=== PATIENT | female | born 1945 | race Caucasian/White ===

== ENCOUNTER → 2016-11-05 | Outpatient (CLI) | payer OTHER ==
[~2016-11-05] MED LIST: DTRSR/10 PO; GLC/500 PO; GLC500 PO; METH1TAB3 PO; OXYC-57 PO
--- NOTE | 2016-11-05 08:31 | DIAGNOSTIC IMAGING REPORT ---
HEAD CT NONCONTRAST CT DOSE: 537.48 mGy.cm HISTORY: Change in mental status facial numbness TECHNIQUE: Multiaxial CT images of the head were performed without the use of intravenous contrast. Comparison: None. Findings: The paranasal sinuses and mastoid air cells are clear. The calvarium and skull base are intact. The ventricles and sulci are within normal limits. There is no mass, hematoma, midline shift, or acute infarct. Impression: No acute intracranial abnormality. Electronically signed by: Amado John M.D. 11/05/2016 8:30 AM Dictated Date/Time: 11/05/2016 8:29 AM
== END | disposition home or self-care (01) ==
LOC: C.CTS 08:16
PROVIDERS: ATTEND Internal Medicine
DX: H02.402 Unspecified ptosis of left eyelid (principal)

== ENCOUNTER 2016-12-02 01:55 | Emergency (ER) | payer OTHER ==
[~2016-12-02] VITALS: Ht 147.3 cm; Wt 88.6 kg
[~2016-12-02 01:55] MED LIST changes: -DTRSR/10 PO; -GLC500 PO; -METH1TAB3 PO; -OXYC-57 PO
[2016-12-02 02:00] VITALS: TEMP 36.5; Ht 147.3 cm; Wt 88.6 kg
[2016-12-02] MEDS ORDERED: KETOROLAC TROMETHAMINE 30 MG/ML VIAL ONE (02:29)
[2016-12-02] MEDS ORDERED: KETOROLAC TROMETHAMINE 60 MG/2 ML VIAL IM ONE (02:30)
[2016-12-02 02:58] VITALS: BP 206/112; PULSE 87; O2SAT 94
[2016-12-02] MEDS ORDERED: OXYCODONE IR HOME PACK PO ONE (03:00)
--- NOTE | 2016-12-02 05:07 | EMERGENCY ROOM VISIT NOTE ---
History Report prepared by Margaret: Perry Licea Under the Supervision of: Dr. Cosme Sullivan D.O. First contact with patient: 02:06 Chief Complaint: SHOULDER PAIN Stated Complaint: SEVERE PAIN LEFT SHOULDER History of Present Illness The patient is a 71 year old female who presents to the Emergency Room with complaints of constant severe left shoulder pain starting around 2030. The patient states that movement makes it worse, and she has never had anything like this before. The patient states that she has not taken any pain medications because her tolerance is too high they do not help her. The patient states that she usually has some back pain, though nothing like this. Pain is significantly worse with abduction of her shoulder. No tingling or numbness. No weakness. Pt denies headache, change in vision, fevers, chest pain, shortness of breath, nausea, vomiting, diarrhea, pain with urination, and melena. Source of History: patient Onset: 2029 Position: shoulder (left) Symptom Intensity: severe Timing: constant Modifying Factors (Worsening): movement Review of Systems See HPI for pertinent positives & negatives. A total of 10 systems reviewed and were otherwise negative. Past Medical & Surgical Medical Problems: (1) Asthma, Unspecified (2) Cholecystectomy (3) Chronic Liver Dis Nec (4) Chronic obstructive lung disease (5) Chronic osteoarthritis (6) Diverticulosis Colon (W/O Ment Of Hemorrhage) (7) History of bilateral mastectomy (8) Hypertension Nos (9) Osteoporosis (10) Pneumonia, Organism Nos (11) Replacement of total knee joint Family History Cancer Diabetes mellitus Hypertension Lung disease Social History Smoking Status: Former Smoker Alcohol Use: none Drug Use: none Marital Status: single Housing Status: lives alone Occupation Status: employed Current/Historical Medications Scheduled Metformin Hcl (Glucophage), 1,000 TABS PO BID Methenamine Mandelate (Methenamine Mandelate), 1 GM PO HS Oxybutynin Chloride (Oxybutynin Chloride ER), 10 MG PO DAILY @ NOON Allergies Coded Allergies: Amoxicillin (Verified Allergy, Unknown, childhood allergy, 12/02/16) Penicillins (Verified Allergy, Unknown, HAPPENED A CHILD, 04/20/16) Physical Exam Vital Signs Date Time Temp Pulse Resp B/P Pulse Ox O2 Delivery O2 Flow Rate FiO2 12/02/16 02:58 87 20 206/112 94 12/02/16 02:16 87 12/02/16 02:00 36.5 91 20 206/112 94 Room Air Physical Exam GENERAL: Sitting up in bed, disheveled, no distress, non-toxic EYE EXAM: normal conjunctiva, PERRL and EOM's grossly intact OROPHARYNX: no exudate, no erythema, lips, buccal mucosa, and tongue normal and mucous membranes are moist NECK: Pain with rotation of the neck to the left. Supple, no nuchal rigidity, no adenopathy, non-tender LUNGS: Clear to auscultation. Normal chest wall mechanics HEART: no murmurs, S1 normal and S2 normal ABDOMEN: abdomen soft, non-tender, normo-active bowel sounds, no masses, no rebound or guarding. BACK: Back is symmetrical on inspection and there is no deformity, no midline tenderness, no CVA tenderness. SKIN: no rashes and no bruising UPPER EXTREMITIES: Left upper extremity: acute reproducible tenderness over the humeral head tracking over the scapula and trapezius. Flexion, extension of the wrist, elbow, and shoulder intact along with abduction of shoulder. Moderate amount of pain with abduction more than 90 degrees. Grasp with abduction intact. Radial pulses 2/4 bilaterally LOWER EXTREMITIES: No pitting edema. NEURO EXAM: Normal sensorium Medical Decision & Procedures ER Provider Diagnostic Interpretation: Xray results per my interpretation. 4 Views of the left shoulder: No acute fracture or dislocation. Medications Administered Medications (Trade) Dose Ordered Sig/Nolan Route Start Time Stop Time Status Last Admin Dose Admin Ketorolac Tromethamine (Toradol Inj) 30 mg STK-MED ONCE .ROUTE 12/02/16 02:29 12/02/16 02:32 DC 12/02/16 02:37 15 MG Oxycodone HCl (Roxicodone Immediate Rel 5MG Home Pack) 1 homepack UD ONCE PO 12/02/16 03:00 12/02/16 03:01 DC 12/02/16 02:58 1 HOMEPACK ECG Indication: other (shoulder pain) Rate (beats per minute): 85 Rhythm: sinus rhythm Findings: Q waves (Inferior), other (normal axis) ED Course ED COURSE: Vital signs were reviewed and showed hypertensive The patients medical record was reviewed The above diagnostic studies were performed and reviewed. ED treatments and interventions as stated above. 0210: The patient was evaluated in room B2. A complete history and physical examination was performed. 0229: Toradol Inj 15mg IM 0242: I revaluated the patient, and she states that she cannot get anyone to pick her up, and she wnats to go home. 0300: Oxycodone HCl 1 Homepack 0301: Upon reevaluation, the patient is feeling better.I discussed my findings with the patient and she understands and agrees with the treatment plan. Based on the patients age, coexisting illnesses, exam and lab findings the decision to treat as an outpatient was made. The patient remained stable while under my care. The patient appeared well at the time of discharge. Medical Decision Differential diagnosis: Etiologies such as fracture, dislocation, neurovascular compromise, compartment syndrome, soft tissue injury, as well as others were entertained. Patient is a 71-year-old female who presents the ER for severe left shoulder pain. She notes that this started yesterday and has been worsening. She's never had this before. She is acute reproducible tenderness in the trapezius, humeral head and paraspinal region along the scapula. Pain is completely reproducible. She is neurologically and neurovascularly intact. She was hypertensive. She was updated regards to this. She is instructed to follow-up with her primary care doctor in next 2-3 days regards to this. Patient was given IM Toradol. Since she drove was unable to give her any narcotics but I gave her OxyIR to go home on. PDMP was reviewed. I recommended following up with her primary care doctor if pain continues over the next 24 hours. Discussed with Pt concerning signs and symptoms to watch out for. Pt was instructed to follow up with their PCP and discussed with the patient their option to return to the ED at anytime for persistent or worsening symptoms. The appropriate anticipatory guidance and out-patient management, including indications for return to the emergency department, were explained at length to the patient and understood. Impression Primary Impression: Acute pain of left shoulder Additional Impression: Hypertension Scribe Attestation The scribe's documentation has been prepared under my direction and personally reviewed by me in its entirety. I confirm that the note above accurately reflects all work, treatment, procedures, and medical decision making performed by me. Departure Information Dispostion Home / Self-Care Referrals Yuri Fregoso MD (PCP) Forms HOME CARE DOCUMENTATION FORM, IMPORTANT VISIT INFORMATION Patient Instructions ED Shoulder Pain IVIS, [facility] Additional Instructions Please follow up with your primary care doctor with in the next 24 hours. Any worsening of your symptoms, please return to the ED immediately. This includes worsening the pain, fevers greater than 100.4, redness of the shoulder, or any other concerning signs or symptoms from your standpoint. You were given medications during this visit that will inhibit your ability to drive, operate machinery and work. Please do NOT drive, operate machinery or work for the next 12hrs. You were also given a prescription for a narcotic which is OxyIR. While taking this medication you should also not drive, operate machinery and or work. Please follow up with your primary care doctor within next 2-3 days in regards to your high blood pressure. Problem Qualifiers Additional Impression: Hypertension Hypertension type: unspecified secondary hypertension Qualified Codes: I15.9 - Secondary hypertension, unspecified
--- NOTE | 2016-12-02 07:24 | DIAGNOSTIC IMAGING REPORT ---
LEFT SHOULDER 4 VIEWS CLINICAL HISTORY: Left shoulder pain. No reported history of trauma. FINDINGS: 4 views of left shoulder are compared to study dated 06/03/2010. The skeletal structures are osteopenic. No fracture or dislocation is seen. Productive degenerative change is identified at the acromioclavicular joint. Arthritic change is also seen in the greater tuberosity of the humeral head. The overlying soft tissues are within normal limits. Partially imaged left lung parenchyma appears clear. The heart is enlarged. IMPRESSION: Osteopenia and degenerative change as above. No acute bony abnormality is identified. Electronically signed by: Ponce Scott M.D. 12/02/2016 7:23 AM Dictated Date/Time: 12/02/2016 7:21 AM
[2016-12-24] MEDS ORDERED: METH1TAB3 PO (10:49)
[2016-12-24] MEDS ORDERED: DTRSR/10 PO (11:43)
== END 2016-12-02 03:00 | disposition home or self-care (01) ==
LOC: C.EDB 01:57
DX: M25.512 Pain in left shoulder (principal); I15.9 Secondary hypertension, unspecified; J45.909 Unspecified asthma, uncomplicated; J44.9 Chronic obstructive pulmonary disease, unspecified; M19.90 Unspecified osteoarthritis, unspecified site; Z90.13 Acquired absence of bilateral breasts and nipples; M81.0 Age-related osteoporosis without current pathological fracture; Z96.659 Presence of unspecified artificial knee joint; Z83.3 Family history of diabetes mellitus; Z82.49 Family history of ischemic heart disease and other diseases of the circulatory system; Z87.891 Personal history of nicotine dependence

== ENCOUNTER 2016-12-03 10:37 | Emergency (ER) | payer OTHER ==
[~2016-12-03] VITALS: Ht 147.3 cm; Wt 87.9 kg
[2016-12-03 10:41] VITALS: TEMP 36.5; Ht 147.3 cm; Wt 87.9 kg
[2016-12-03] MEDS ORDERED: KETOROLAC TROMETHAMINE 30 MG/ML VIAL IM STA (11:31)
--- NOTE | 2016-12-03 11:41 | EMERGENCY ROOM VISIT NOTE ---
History First contact with patient: 11:04 Chief Complaint: SHOULDER PAIN Stated Complaint: SHOULDER PAIN History of Present Illness The patient is a 71 year old female who presents to the Emergency Room with complaints of persistent left shoulder pain for the past few days. The patient was seen yesterday with similar complaints. She was given IM Toradol, and had distinct improvement of her symptoms after this medication. The patient states that she has an upcoming appointment with [facility] in 4 days. She essentially repaired and stool the emergency department for another shot of Toradol. 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 She does have pain with range of motion and improvement of discomfort with rest. The patient is not able to use a sling for the arm because she needs to use a walker to ambulate. She does not recall distinct injury. No chest pain or shortness of breath. Review of Systems More than 10 systems were reviewed and otherwise negative with the exception of history of present illness. Past Medical/Surgical History Medical Problems: (1) Asthma, Unspecified (2) Cholecystectomy (3) Chronic Liver Dis Nec (4) Chronic obstructive lung disease (5) Chronic osteoarthritis (6) Diverticulosis Colon (W/O Ment Of Hemorrhage) (7) History of bilateral mastectomy (8) Hypertension Nos (9) Osteoporosis (10) Pneumonia, Organism Nos (11) Replacement of total knee joint Family History Cancer Diabetes mellitus Hypertension Lung disease Social History Smoking Status: Never Smoker Alcohol Use: none Drug Use: none Marital Status: single Housing Status: lives alone Occupation Status: employed Current/Historical Medications Scheduled Metformin Hcl (Glucophage), 1,000 TABS PO BID Methenamine Mandelate (Methenamine Mandelate), 1 GM PO HS Oxybutynin Chloride (Oxybutynin Chloride ER), 10 MG PO DAILY @ NOON Allergies Coded Allergies: Amoxicillin (Verified Allergy, Unknown, childhood allergy, 12/03/16) Penicillins (Verified Allergy, Unknown, HAPPENED A CHILD, 12/03/16) Physical Exam Vital Signs Date Time Temp Pulse Resp B/P Pulse Ox O2 Delivery O2 Flow Rate FiO2 12/03/16 10:41 36.5 96 18 169/100 95 Room Air Physical Exam VITALS: Vitals are noted on the nurse's note and reviewed by myself. Vital signs stable. GENERAL: Well-developed, well-nourished, white female, who is in no acute distress and resting comfortably. Patient is cooperative with the examination. HEAD: Normocephalic atraumatic. HEART: Regular rate and rhythm without murmurs gallops or rubs. LUNGS: Clear to auscultation bilaterally without wheezes, rales or rhonchi. No retractions or accessory muscle use. MUSCULOSKELETAL: No muscle atrophy, erythema, or edema noted. There is positive tenderness over the supraspinatus of the left shoulder. There is no rash or paresthesias. Abduction and elevation above the level of the shoulder increases tenderness in this area. Positive empty can. Medical Decision & Procedures ED Course Physical exam and history were performed. Nursing notes and EMR were reviewed. Patient appears to have muscular skeletal left shoulder pain for the past few days. I did check an EKG which was normal sinus rhythm without acute ST elevation or evidence of ischemia. EKG was unchanged from yesterday. The patient does have an upcoming appointment with orthopedics and was asked to keep this appointment. I will provide her 15 mg IM Toradol as this seemed to help yesterday. The patient was otherwise invited back to the ER with any new, worsening, or concerning symptoms. A The chart was completed utilizing [employer] Speech Voice Recognition Software. Grammatical errors, random word insertions, pronoun errors, and incomplete sentences are an occasional consequence of this system due to software limitations, ambient noise, and hardware issues. Any formal questions or concerns about the content, text, or information contained within the body of this dictation should be directly addressed to the provider for clarification. . Medical Decision Differential diagnosis includes, but is not limited to: Sprain, strain, fracture , dislocation, subluxation, contusion, and others Impression Primary Impression: Left shoulder pain Departure Information Dispostion Home / Self-Care Condition GOOD Forms HOME CARE DOCUMENTATION FORM, IMPORTANT VISIT INFORMATION Patient Instructions My [facility] Additional Instructions You were seen and evaluated today on an emergency basis only. This is not a substitute for, or an effort to provide, complete comprehensive medical care. It is not possible to recognize and treat all injuries or illnesses in a single emergency department visit. For this reason it is recommended that you followup with Orthopedics as scheduled on Wednesday for ongoing care. You are welcome to return to the emergency department anytime with new, worsening, or concerning symptoms.
[2016-12-03 11:45] VITALS: BP 165/90; PULSE 97; O2SAT 97
[2016-12-03] MEDS ORDERED: KETOROLAC TROMETHAMINE 15 MG/ML VIAL IM ONE (11:45)
[2016-12-24] MEDS ORDERED: METH1TAB3 PO (10:49)
[2016-12-24] MEDS ORDERED: DTRSR/10 PO (11:43)
== END 2016-12-03 12:06 | disposition home or self-care (01) ==
LOC: C.EDB 10:38 → C.EDD 12:06
DX: M25.512 Pain in left shoulder (principal); J45.909 Unspecified asthma, uncomplicated; I10 Essential (primary) hypertension; J44.9 Chronic obstructive pulmonary disease, unspecified; Z79.899 Other long term (current) drug therapy; Z83.3 Family history of diabetes mellitus; Z82.49 Family history of ischemic heart disease and other diseases of the circulatory system

== ENCOUNTER 2016-12-24 20:12 | Emergency (ER) | payer OTHER ==
[~2016-12-24] VITALS: Ht 147.3 cm; Wt 88.2 kg
[~2016-12-24 20:12] MED LIST changes: +DTRSR/10 PO; +METH1TAB3 PO
[2016-12-24 20:14] VITALS: TEMP 36.5; Ht 147.3 cm; Wt 88.2 kg
[2016-12-24] MEDS ORDERED: GLC500 PO (20:58)
[2016-12-24] MEDS ORDERED: KETOROLAC TROMETHAMINE 60 MG/2 ML VIAL IM STA (20:59)
[2016-12-24] MEDS ORDERED: MoRPHine SULFATE 10 MG/ML CARP/VIAL IM STA (20:59)
--- NOTE | 2016-12-24 21:06 | EMERGENCY ROOM VISIT NOTE ---
History Report prepared by Margaret: Adolfo John Under the Supervision of: Dr. Eduardo Ervin M.D. First contact with patient: 20:34 Chief Complaint: BACK PAIN Stated Complaint: BACK PAIN History of Present Illness The patient is a 71 year old female who presents to the Emergency Room with complaints of chronic left lower back pain exacerbation since 1500 today. The pain is rated 10/10 in severity and is worsened with movement. The pain is the same pain that the patient experiences chronically. She follows up with pain management. The patient was prescribed Percocet until one year ago. She denies any recent trauma or injury. Source of History: patient Onset: 1500 today Position: back (lower) Symptom Intensity: 10/10 Timing: other (exacerbation) Modifying Factors (Worsening): movement Review of Systems See HPI for pertinent positives & negatives. A total of 10 systems reviewed and were otherwise negative. Past Medical & Surgical Medical Problems: (1) Asthma, Unspecified (2) Cholecystectomy (3) Chronic Liver Dis Nec (4) Chronic obstructive lung disease (5) Chronic osteoarthritis (6) Diverticulosis Colon (W/O Ment Of Hemorrhage) (7) History of bilateral mastectomy (8) Hypertension Nos (9) Osteoporosis (10) Pneumonia, Organism Nos (11) Replacement of total knee joint Family History Cancer Diabetes mellitus Hypertension Lung disease Social History Smoking Status: Never Smoker Alcohol Use: none Drug Use: none Marital Status: single Housing Status: lives alone Occupation Status: employed Current/Historical Medications Scheduled Metformin HCl (Metformin HCl), 500 MG PO BID Methenamine Mandelate (Methenamine Mandelate), 1 GM PO HS Oxybutynin Chloride (Oxybutynin Chloride ER), 10 MG PO DAILY @ NOON Allergies Coded Allergies: Amoxicillin (Verified Allergy, Unknown, childhood allergy, 12/24/16) Penicillins (Verified Allergy, Unknown, HAPPENED A CHILD, 12/24/16) Physical Exam Vital Signs Date Time Temp Pulse Resp B/P Pulse Ox O2 Delivery O2 Flow Rate FiO2 12/24/16 21:46 90 18 184/101 90 12/24/16 20:58 185/119 12/24/16 20:14 36.5 94 20 191/129 96 Room Air Physical Exam GENERAL: Patient is in moderate distress and uncomfortable appearing. Pain comes in waves. HEENT: No acute trauma, normocephalic atraumatic, mucous membranes moist, no nasal congestion, no scleral icterus. NECK: No stridor, no adenopathy, no meningismus, trachea is midline. LUNGS: No dyspnea. Clear to auscultation and equal bilaterally. No wheeze, no rhonchi. HEART: Regular rate and rhythm. No murmurs, rubs, gallops appreciated. ABDOMEN: Soft, nontender, bowel sounds positive, no masses appreciated, no peritonitis. BACK: No midline tenderness. Tender to palpation over the left flank. EXTREMITIES: Normal motion all extremities, no cyanosis, no edema. NEUROLOGIC: Alert and oriented, no acute motor or sensory deficits, no focal weakness, cranial nerves grossly intact. SKIN: No rash, no jaundice, no diaphoresis. Medical Decision & Procedures Medications Administered Medications (Trade) Dose Ordered Sig/Nolan Route Start Time Stop Time Status Last Admin Dose Admin Morphine Sulfate (MoRPHine SULFATE INJ) 6 mg NOW STAT IM 12/24/16 20:59 12/24/16 21:04 DC 12/24/16 21:11 6 MG Ketorolac Tromethamine (Toradol Inj) 60 mg NOW STAT IM 12/24/16 20:59 12/24/16 21:04 DC 12/24/16 21:12 60 MG ED Course 2044: Patient was evaluated by the Resident. 2058: Toradol 60 mg IM, Morphine Sulfate 6 mg IV. 2099: The patient was evaluated in room C11b. A complete history and physical exam was performed. 2129: Reassessed the patient. Discussed the instructions with her. She verbalized understanding and agreement. The patient is ready for discharge. Medical Decision Differential: Renal Colic, Pyelonephritis, Hydronephrosis, Appendicitis, Diverticulitis, Retroperitoneal Bleed/Infection, Aortic Pathology, MSK, Neurologic Pathology, amongst other pathologies entertained. 71 yr old female with acute worsening of left flank/back pain over last few hours. Identical to symptoms she has been having since age 28. States Morphine /Toradol work best. Occurs relatively infrequently and review of chart makes it clear similar to previous episode last summer. She declines any testing. Stable and otherwise without symptoms. No neuro deficits nor urinary symptoms. Abdomen soft and non-tender. No Resp nor cardiac symptoms. Impression Primary Impression: Low back pain Scribe Attestation The scribe's documentation has been prepared under my direction and personally reviewed by me in its entirety. I confirm that the note above accurately reflects all work, treatment, procedures, and medical decision making performed by me. Departure Information Dispostion Home / Self-Care Referrals Yuri Fregoso MD (PCP) Forms HOME CARE DOCUMENTATION FORM, IMPORTANT VISIT INFORMATION Patient Instructions ED Back Pain Acute Chronic, My [facility] Additional Instructions Please follow up with Primary care provider within 1-2 days If pain worsens or you experience Chest pain, shortness of breath, Palpitation, fever >100.4, chills, call clinic or return to Emergency department Problem Qualifiers Primary Impression: Low back pain Chronicity: chronic Back pain laterality: left Sciatica presence: without sciatica Qualified Codes: M54.5 - Low back pain; G89.29 - Other chronic pain
--- NOTE | 2016-12-24 21:14 | EMERGENCY ROOM VISIT NOTE ---
History First contact with patient: 20:48 (Yobany Mary MD) First contact with patient: 20:34 (Eduardo Ervin M.D.) Chief Complaint: BACK PAIN Stated Complaint: BACK PAIN History of Present Illness The patient is a 71 year old female with previous hx of Chronic back pain who presents to the Emergency Room with complaints of acute increase in back pain. Around 1500, patient report abrupt increase in back pain 10/10 similar to her previous symptoms. Pain is worse with standing up. She follows with Dr. Gomez in Pain Management. She was previously on Percocet at home but was taken off 1 yr ago with the plan that she could seek management acutely as needed with morphine. She currently takes no medication for pain at home. She was previously seen in ED from Back pain 04/2016. She was given 6 mg Morphine, 60 mg Toradol and sent home. She denies Fevers/chills, numbness weakness, tingling, CP, SOB, syncope, presyncope, [place], visual changes. (Yobany Mary MD) Review of Systems See HPI for pertinent positives & negatives. A total of 10 systems reviewed and were otherwise negative. (Yobany Mary MD) Past Medical/Surgical History Medical Problems: (1) Asthma, Unspecified (2) Cholecystectomy (3) Chronic Liver Dis Nec (4) Chronic obstructive lung disease (5) Chronic osteoarthritis (6) Diverticulosis Colon (W/O Ment Of Hemorrhage) (7) History of bilateral mastectomy (8) Hypertension Nos (9) Osteoporosis (10) Pneumonia, Organism Nos (11) Replacement of total knee joint (Eduardo Ervin M.D.) Family History Cancer Diabetes mellitus Hypertension Lung disease (Yobany Mary MD) Cancer Diabetes mellitus Hypertension Lung disease (Eduardo Ervin M.D.) Social History Smoking Status: Never Smoker Alcohol Use: none Drug Use: none Marital Status: single Housing Status: lives alone Occupation Status: employed (Yobany Mary MD) Current/Historical Medications Scheduled Metformin HCl (Metformin HCl), 500 MG PO BID Methenamine Mandelate (Methenamine Mandelate), 1 GM PO HS Oxybutynin Chloride (Oxybutynin Chloride ER), 10 MG PO DAILY @ NOON Allergies Coded Allergies: Amoxicillin (Verified Allergy, Unknown, childhood allergy, 12/24/16) Penicillins (Verified Allergy, Unknown, HAPPENED A CHILD, 12/24/16) Physical Exam Vital Signs Date Time Temp Pulse Resp B/P Pulse Ox O2 Delivery O2 Flow Rate FiO2 12/24/16 21:46 90 18 184/101 90 12/24/16 20:58 185/119 12/24/16 20:14 36.5 94 20 191/129 96 Room Air (Eduardo Ervin M.D.) Physical Exam GENERAL: alert, well appearing, well nourished, no distress, non-toxic EYE EXAM: normal conjunctiva, PERRL and EOM's grossly intact LUNGS: Clear to auscultation. Normal chest wall mechanics HEART: no murmurs, S1 normal and S2 normal ABDOMEN: abdomen soft, non-tender, normo-active bowel sounds, no masses, no rebound or guarding. BACK: Left sided thoracic muscular tenderness SKIN: no rashes and no bruising UPPER EXTREMITIES: upper extremities are grossly normal. LOWER EXTREMITIES: No pitting edema. NEURO EXAM: Normal sensorium, cranial nerves II-XII grossly intact, normal speech, no gross weakness of arms, no gross weakness of legs. Gross sensation intact (Yobany Mary MD) Medical Decision & Procedures Medications Administered Medications (Trade) Dose Ordered Sig/Nolan Route Start Time Stop Time Status Last Admin Dose Admin Morphine Sulfate (MoRPHine SULFATE INJ) 6 mg NOW STAT IM 12/24/16 20:59 12/24/16 21:04 DC 12/24/16 21:11 6 MG Ketorolac Tromethamine (Toradol Inj) 60 mg NOW STAT IM 12/24/16 20:59 12/24/16 21:04 DC 12/24/16 21:12 60 MG (Eduardo Ervin M.D.) Medical Decision Differential diagnoses includes but is not limited to lumbar radiculopathy, muscle strain, facture, cauda equina, mass, and disc herniation. 71 yo F w/ Hx of chronic left sided thoracic back pain, p/w with acute worsening of back pain. with left lateral thoracic regional muscular tenderness without radiculopathy. afebrile, vss Back Pain 10/10 intensity back pain on arrival -Given 60 mg Toradol IM, 6mg Morphine IM -Upon reevaluation, the patient is feeling better. Pain significantly improved. I discussed the findings and the treatment plan with the patient. She verbalizes agreement and understanding. She was discharged home with followup to Primary care provider (Yobany Mary MD) Resident Physician Supervision Note: Dr. Mary was resident physician during care of patient. I separately evaluated patient and did history and exam. I discussed the case with the resident and generally agree with the findings and plan. Please see my full note for this visit. Documented By: Eduardo Ervin MD (Eduardo Ervin MDanyelle.) Impression Primary Impression: Back pain Departure Information Dispostion Home / Self-Care Condition GOOD Referrals Yuri Fregoso MD (PCP) Patient Instructions My [facility] Resident Tracking Resident Involvement: Resident Care Provided Care Provided: Adult ED (Yobany Mary MD) Problem Qualifiers Primary Impression: Back pain Back pain location: thoracic back pain Chronicity: chronic Back pain laterality: left Qualified Codes: M54.6 - Pain in thoracic spine; G89.29 - Other chronic pain
[2016-12-24 21:46] VITALS: BP 184/101; PULSE 90; O2SAT 90
== END 2016-12-24 21:50 | disposition home or self-care (01) ==
LOC: C.EDB 20:13 → C.EDC 21:50
DX: M54.5 Low back pain (principal); J45.909 Unspecified asthma, uncomplicated; J44.9 Chronic obstructive pulmonary disease, unspecified; I10 Essential (primary) hypertension; Z90.49 Acquired absence of other specified parts of digestive tract; Z90.13 Acquired absence of bilateral breasts and nipples; Z87.01 Personal history of pneumonia (recurrent); Z96.659 Presence of unspecified artificial knee joint; Z88.1 Allergy status to other antibiotic agents; Z88.0 Allergy status to penicillin

== ENCOUNTER 2017-01-06 18:49 | Emergency (ER) | payer OTHER ==
[~2017-01-06] VITALS: Ht 147.3 cm; Wt 88.4 kg
[~2017-01-06 18:49] MED LIST changes: -GLC/500 PO; +GLC500 PO
[2017-01-06 19:11] VITALS: TEMP 36.8; Ht 147.3 cm; Wt 88.4 kg
[2017-01-06] MEDS ORDERED: MoRPHine SULFATE 10 MG/ML CARP/VIAL IM STA (19:29)
[2017-01-06] MEDS ORDERED: KETOROLAC TROMETHAMINE 30 MG/ML VIAL IM STA (19:29)
--- NOTE | 2017-01-06 19:39 | EMERGENCY ROOM VISIT NOTE ---
ED Visit Note First contact with patient: 19:16 Staff note: I have reviewed the Patients chart and have discussed this case with my PA. I generally agree with the ED note and findings.
--- NOTE | 2017-01-06 20:02 | EMERGENCY ROOM VISIT NOTE ---
History First contact with patient: 19:16 Chief Complaint: BACK PAIN Stated Complaint: BACK PAIN History of Present Illness The patient is a 71 year old female who presents to the Emergency Room with complaints of back pain. The patient states that she has had chronic back pain since her 30s. She states that for many years, she took daily pain medication. Recently, her primary care provider referred her to pain management. She is now seeing Dr. Quintana for her back pain. She states that she was told by him to come to the emergency department if she has severe pain to get his injection of morphine. The patient reports that her back pain flared up yesterday. She rates her discomfort a 10/10. She states the symptoms are identical to her chronic back pain. She denies any numbness, weakness, radiation of the pain, chest pain, shortness of breath, abdominal pain, nausea or vomiting. Review of Systems A complete 10-point Review of Systems was discussed with the patient, with pertinent positives and negatives listed in the History of Present Illness. All remaining Review of Systems questions can be considered negative unless otherwise specified. Past Medical/Surgical History Medical Problems: (1) Asthma, Unspecified (2) Cholecystectomy (3) Chronic Liver Dis Nec (4) Chronic obstructive lung disease (5) Chronic osteoarthritis (6) Diverticulosis Colon (W/O Ment Of Hemorrhage) (7) History of bilateral mastectomy (8) Hypertension Nos (9) Osteoporosis (10) Pneumonia, Organism Nos (11) Replacement of total knee joint Family History Cancer Diabetes mellitus Hypertension Lung disease Social History Smoking Status: Former Smoker Alcohol Use: none Drug Use: none Marital Status: single Housing Status: lives alone Occupation Status: employed Current/Historical Medications Scheduled Metformin HCl (Metformin HCl), 500 MG PO BID Methenamine Mandelate (Methenamine Mandelate), 1 GM PO HS Oxybutynin Chloride (Oxybutynin Chloride ER), 10 MG PO DAILY @ NOON Allergies Coded Allergies: Amoxicillin (Verified Allergy, Unknown, childhood allergy, 01/06/17) Penicillins (Verified Allergy, Unknown, HAPPENED A CHILD, 01/06/17) Physical Exam Vital Signs Date Time Temp Pulse Resp B/P Pulse Ox O2 Delivery O2 Flow Rate FiO2 01/06/17 19:11 36.8 85 20 94 Room Air Physical Exam VITALS: Vitals are noted on the nurse's note and reviewed by myself. Vital signs stable. GENERAL: This is a 71-year-old female, in no acute distress, nondiaphoretic, well-developed well-nourished. SKIN: Capillary reflex less than 2 seconds. HEENT: Normocephalic. PERRLA. EOMI. Nares patent. Mucous membranes moist. Neck is supple without nuchal rigidity. HEART: Regular rate and rhythm without murmurs gallops or rubs. LUNGS: Clear to auscultation bilaterally without wheezes, rales or rhonchi. No retractions or accessory muscle use. ABDOMEN: Positive bowel sounds x 4. Soft, nontender to palpation. MUSCULOSKELETAL: Moderate tenderness to palpation of the left thoracic paraspinous muscles. No tenderness of the spinous processes. Full range of motion of the spine. Full range of motion of bilateral upper and lower extremities. Strength 5/5. NEURO: Patient was alert and oriented to person place and time. Normal sensation to light and sharp touch. Deep tendon reflexes 2+ throughout. No focal neurological deficits. Medical Decision & Procedures Medications Administered Medications (Trade) Dose Ordered Sig/Nolan Route Start Time Stop Time Status Last Admin Dose Admin Morphine Sulfate (MoRPHine SULFATE INJ) 6 mg NOW STAT IM 01/06/17 19:29 01/06/17 19:30 DC 01/06/17 19:43 6 MG Ketorolac Tromethamine (Toradol Inj) 30 mg NOW STAT IM 01/06/17 19:29 01/06/17 19:30 DC 01/06/17 19:43 30 MG Medical Decision Differential diagnosis includes acute exacerbation of chronic back pain, infection, malignancy, degenerative disc disease, cord compression, among others. The patient was evaluated as above. Previous records were reviewed. The patient has been seen here previously for chronic back pain. She has typically been given injections of morphine and Toradol. The patient does report symptoms are identical to previous episodes of back pain. Her exam is unremarkable except for some mild paraspinous muscle tenderness. She was given 6 morphine IM and 30 mg Toradol IM with good relief of her pain. She was instructed to follow-up with her primary care provider and pain management for further evaluation and treatment of her chronic back pain. She verbalized understanding of my assessment and treatment plan and was discharged home in good condition. The patient was independently evaluated by Dr. Sullivan, ED attending physician, who agreed with my assessment and treatment plan. Impression Primary Impression: Chronic thoracic back pain Departure Information Referrals Yuri Fregoso MD (PCP) Patient Instructions My [facility] Problem Qualifiers Primary Impression: Chronic thoracic back pain Back pain laterality: left Qualified Codes: M54.6 - Pain in thoracic spine; G89.29 - Other chronic pain
[2017-01-06 20:11] VITALS: BP 199/125; PULSE 91; O2SAT 91
== END 2017-01-06 20:13 | disposition home or self-care (01) ==
LOC: C.EDB 18:50 → C.EDD 20:13
DX: M54.6 Pain in thoracic spine (principal); G89.29 Other chronic pain; J45.909 Unspecified asthma, uncomplicated; J44.9 Chronic obstructive pulmonary disease, unspecified; M19.90 Unspecified osteoarthritis, unspecified site; I10 Essential (primary) hypertension; M81.0 Age-related osteoporosis without current pathological fracture; Z87.01 Personal history of pneumonia (recurrent); Z87.891 Personal history of nicotine dependence; Z96.659 Presence of unspecified artificial knee joint; Z90.13 Acquired absence of bilateral breasts and nipples; Z90.49 Acquired absence of other specified parts of digestive tract; Z83.3 Family history of diabetes mellitus; Z82.49 Family history of ischemic heart disease and other diseases of the circulatory system

== ENCOUNTER 2017-01-07 17:00 | Emergency (ER) | payer OTHER ==
[~2017-01-07] VITALS: Ht 147.3 cm; Wt 88.4 kg
[2017-01-07 17:13] VITALS: TEMP 36.5; Ht 147.3 cm; Wt 88.4 kg
[2017-01-07] MEDS ORDERED: MoRPHine SULFATE 10 MG/ML CARP/VIAL IM STA (17:50)
[2017-01-07] MEDS ORDERED: KETOROLAC TROMETHAMINE 60 MG/2 ML VIAL IM STA ×2 (17:50→17:58)
--- NOTE | 2017-01-07 18:06 | EMERGENCY ROOM VISIT NOTE ---
ED Visit Note First contact with patient: 17:24 The patient was seen and examined with Aryan Munoz PA-C. I agree with the history, physical and findings. Please see the note for disposition and details.
[2017-01-07 18:51] VITALS: BP 134/74; PULSE 78; O2SAT 98
--- NOTE | 2017-01-08 00:41 | EMERGENCY ROOM VISIT NOTE ---
ED Visit Note First contact with patient: 17:24 Chief Complaint: Back pain. History of Present Illness: Ms. High is a 71-year-old white female who ambulates into the ED complaining of left sided lumbar back pain. Historically patient reports she has ongoing chronic left-sided lumbar back pain for the last 40 years. She goes on to report that up until April of last year she was on Percocet. At that time Dr. Quintana, [facility], took her off her chronic pain medication and told her if she had exacerbation of the pain she should come to the emergency department for treatment. I did review her medical records and she has been here multiple times for her pain with the last time being last night. She reports after receiving her injections of morphine and Toradol she had no relief of her discomfort. Currently she describes a sharp pain over the left side of the lumbar spine. She reports this is not a constant pain but does calm in like waves and can be [id number] or sometimes spaced out. She rates her discomfort 10/10. She reports this is not the worst back pain she's had in her life. Flexion and extension at the waist increases her discomfort as well as palpation. She has not identified any alleviating factors related to the pain and she has not had any additional pain medications since her ED visit last night. She denies any recent direct trauma, ongoing repetitive trauma, fevers, chills, sweats, skin eruptions, skin color changes, abdominal pain, decreased appetite, nausea, vomiting, diarrhea, constipation, rectal bleeding, black/tarry stools, urinary symptoms, hematuria, vaginal bleeding, vaginal discharge, genital/rectal paresthesias, bowel and bladder dysfunction, lower extremity weakness/numbness/ tingling. Review of Systems: As noted above in history of present illness. All body systems were reviewed and found to be negative as noted above. Past Medical History: (1) Asthma, Unspecified (2) Cholecystectomy (3) Chronic Liver Dis Nec (4) Chronic obstructive lung disease (5) Chronic osteoarthritis (6) Diverticulosis Colon (W/O Ment Of Hemorrhage) (7) History of bilateral mastectomy (8) Hypertension Nos (9) Osteoporosis (10) Pneumonia, Organism Nos (11) Replacement of total knee joint Current Medications: Medications Dose Route/Sig Max Daily Dose Days Date Category Metformin HCl 500 Mg Tab 500 Mg PO BID 12/24/16 Reported Methenamine Mandelate 1 Gm Tab 1 Gm PO HS 03/07/16 Reported Oxybutynin Chloride ER (Oxybutynin Chloride) 10 Mg Tabcr 10 Mg PO DAILY @ NOON 01/25/16 Reported Allergies to Medications: Amoxicillin. Social History: Patient feels safe in her home environment; she denies tobacco and alcohol use. Physical Examination: Vital Signs: Date Time Temp Pulse Resp B/P Pulse Ox O2 Delivery O2 Flow Rate FiO2 01/07/17 18:51 78 18 134/74 98 01/07/17 17:13 36.5 90 18 191/94 97 Room Air GENERAL: 71-year-old female in moderate distress due to pain, nontoxic-appearing , afebrile and hemodynamically stable. NEUROLOGICAL: Awake, alert and oriented to person, place and time. Answering questions appropriately and following commands. Good hand eye coordination. No focal motor sensory deficits. SKIN: Warm, dry and pink. No soft tissue eruptions or trauma noted. HEENT: Atraumatic and normocephalic. PERRLA. Sclera white and conjunctiva pink. No drainage from naris. Oral cavity moist and pink. Pharynx is nonerythematous or edematous. Speech normal. No lymphadenopathy. Trachea midline. No jugular venous distention. BACK: No tenderness over the bony cervical and thoracic spine. Mild tenderness over the upper lumbar spine and moderate tenderness throughout the spinous muscles without palpable spasm. No bony deformity, crepitus, swelling, ecchymosis. No CVA tenderness. Decreased range of motion of the spine due to pain. Unable to perform a straight leg raise test due to body habitus. THORAX: Lungs sounds are clear to auscultation and equal bilaterally with symmetrical chest wall. No wheezing, rales or rhonchi. No crepitus, tenderness , subcutaneous air or deformities noted. ABDOMEN: Protuberant, soft and nontender. Positive bowel sounds in all quadrants. No guarding, rigidity or organomegaly. EXTREMITIES: Moves all extremities well on command and with purpose. All distal neurovascular statuses are intact and equal bilaterally. Equal strength in all movements of the hip, knees, ankles and feet. Mild dependent edema bilaterally. Unable to assess reflexes. ED Course: Patient is assessed as noted above. Patient was given 6 mg of morphine IV and 30 mg of Toradol IV for her pain. Patient's case was reviewed with Dr. Manzano; he independently assessed the patient we agreed on diagnostic approach, treatment, disposition and plan. Patient was educated about tonight's findings and instructed on her treatment plan; she verbalizes understanding and agreement with this plan. Clinical Impression: Acute on chronic lumbar back pain. Disposition: Patient discharged home in stable condition accompanied by female friends; prior to departure she was reassessed and subjectively reported she was feeling better and rated her discomfort 1/10. Plan: Patient was encouraged to follow-up with her family physician and/or her clinical specialist for ongoing pain issues related to her chronic back pain. Patient was encouraged return to the ED for worsening/uncontrolled pain, fevers , genital paresthesias, bowel and bladder dysfunction or any new/concerning symptoms.
== END 2017-01-07 18:53 | disposition home or self-care (01) ==
LOC: C.EDB 17:01 → C.EDD 18:53
DX: M54.5 Low back pain (principal); J45.909 Unspecified asthma, uncomplicated; K76.9 Liver disease, unspecified; J44.9 Chronic obstructive pulmonary disease, unspecified; M19.90 Unspecified osteoarthritis, unspecified site; K57.90 Diverticulosis of intestine, part unspecified, without perforation or abscess without bleeding; I10 Essential (primary) hypertension

== ENCOUNTER 2017-03-04 04:44 | Emergency (ER) | payer OTHER ==
[~2017-03-04] VITALS: Ht 152.4 cm; Wt 88.2 kg
[2017-03-04 04:49] VITALS: TEMP 36.5; Ht 152.4 cm; Wt 88.2 kg
[2017-03-04] MEDS ORDERED: KETOROLAC TROMETHAMINE 30 MG/ML VIAL IV STA (04:57)
--- NOTE | 2017-03-04 05:04 | EMERGENCY ROOM VISIT NOTE ---
History Report prepared by Margaret: Bimal Vargas Under the Supervision of: Dr. Luiz Ralph D.O. First contact with patient: 04:51 Chief Complaint: BACK PAIN Stated Complaint: BACK PAIN History of Present Illness The patient is a 71 year old female who presents to the Emergency Room with complaints of back pain that has been present for forty years. She rates her pain a 10/10 in severity. She states that her pain is chronic and just would like her pain medication shot. She notes she stopped taking her pain medication yesterday when the pain became really bad. Her blood pressure is elevated around 212/112. She has a TENS unit on her back. Source of History: patient Onset: 40 years ago Position: back Symptom Intensity: 10/10 Quality: sharp Timing: constant Note: Her blood pressure is elevated. She denies any other symptoms. Review of Systems See HPI for pertinent positives and negatives. A total of ten systems were reviewed and were otherwise negative. Past Medical & Surgical Medical Problems: (1) Asthma, Unspecified (2) Cholecystectomy (3) Chronic Liver Dis Nec (4) Chronic obstructive lung disease (5) Chronic osteoarthritis (6) Diverticulosis Colon (W/O Ment Of Hemorrhage) (7) History of bilateral mastectomy (8) Hypertension Nos (9) Osteoporosis (10) Pneumonia, Organism Nos (11) Replacement of total knee joint Family History Cancer Diabetes mellitus Hypertension Lung disease Social History Smoking Status: Never Smoker Alcohol Use: none Drug Use: none Marital Status: single Housing Status: lives alone Occupation Status: employed Current/Historical Medications Scheduled Metformin HCl (Metformin HCl), 500 MG PO QAM Methenamine Mandelate (Methenamine Mandelate), 1 GM PO HS Oxybutynin Chloride (Oxybutynin Chloride ER), 10 MG PO DAILY @ NOON Allergies Coded Allergies: Amoxicillin (Verified Allergy, Unknown, childhood allergy, 01/07/17) Penicillins (Verified Allergy, Unknown, HAPPENED A CHILD, 01/07/17) Physical Exam Vital Signs Date Time Temp Pulse Resp B/P (MAP) Pulse Ox O2 Delivery O2 Flow Rate FiO2 03/04/17 05:48 155/105 03/04/17 05:02 20 180/118 03/04/17 04:49 36.5 93 16 210/112 93 Room Air Physical Exam GENERAL: Awake, alert, well-appearing, in no distress HENT: Normocephalic, atraumatic. Oropharynx unremarkable. EYES: Normal conjunctiva. Sclera non-icteric. NECK: Supple. No nuchal rigidity. FROM. No JVD. RESPIRATORY: Clear to auscultation. CARDIAC: Regular rate, normal rhythm. Extremities warm and well perfused. Pulses equal. ABDOMEN: Soft. No tenderness to palpation. No rebound or guarding. No masses. Protuberant abdomen. No abnormal aortic pulsations or masses. RECTAL: Deferred. MUSCULOSKELETAL: Chest examination reveals no tenderness. The back is symmetrical on inspection without obvious abnormality. TENS unit pads present in the left lower lumbar region. Tenderness to palpation in the left lower lumbar region paraspinally. No tenderness throughout the thoracic or cervical vertebrae. There is no CVA tenderness to palpation. No joint edema. LOWER EXTREMITIES: Calves are equal size bilaterally and non-tender. No edema. No discoloration. NEURO: Normal sensorium. No sensory or motor deficits noted. SKIN: No rash or jaundice noted. Medical Decision & Procedures Medications Administered Medications (Trade) Dose Ordered Sig/Nolan Route Start Time Stop Time Status Last Admin Dose Admin Miscellaneous Information (Nursing Verbal Med Order) 1 ea ONE ONCE N/A 03/04/17 05:15 03/04/17 05:16 DC 03/04/17 05:15 1 EA Morphine Sulfate (MoRPHine SULFATE INJ) 6 mg NOW STAT IM 03/04/17 05:53 03/04/17 05:55 DC 03/04/17 06:01 6 MG ED Course 0451: The patient was evaluated in room A10. A complete history and physical exam was performed. 0457: Ordered Toradol Inj 30 mg IV 0528: The patient's blood pressure is 190/114 currently. She states that this is normal for her. Her pain has decreased, but it is not completely gone. Her PCP is aware of her blood pressure. 0553: Her blood pressure is now down to 155/104. Ordered Morphine Sulfate 6 mg IM 0615: I reevaluated the patient. Discussed results and discharge instructions: She verbalized understanding and agreement. The patient is ready for discharge. Medical Decision Differential diagnoses include but are not limited to; acute on chronic back pain, lumbosacral strain, hypertension, herniated disc, and pinched nerve Patient resting no distress on repeat examination patient was given Toradol and IM morphine. Patient's blood pressure decreased from 212/112-155/104. Patient states that she has chronic elevated high blood pressure and does not take her medication and her physician is aware. Patient has chronic lumbar pain and there is no change. With this presentation I do not currently think that this patient's having a abdominal aortic aneurysm or abdominal aortic dissection. Patient is much improved on repeat examination and is able to walk without any difficulty.. Impression Primary Impression: Back pain Additional Impression: HTN (hypertension) Scribe Attestation The scribe's documentation has been prepared under my direction and personally reviewed by me in its entirety. I confirm that the note above accurately reflects all work, treatment, procedures, and medical decision making performed by me. Departure Information Dispostion Home / Self-Care Referrals Yuri Fregoso MD (PCP) Forms HOME CARE DOCUMENTATION FORM, IMPORTANT VISIT INFORMATION Patient Instructions My [facility] Problem Qualifiers Primary Impression: Back pain Back pain location: low back pain Chronicity: chronic Back pain laterality : left Sciatica presence: without sciatica Qualified Codes: M54.5 - Low back pain; G89.29 - Other chronic pain
[2017-03-04] MEDS ORDERED: NURSING VERBAL MED ORDER ONE (05:15)
[2017-03-04] MEDS ORDERED: MoRPHine SULFATE 10 MG/ML CARP/VIAL IM STA (05:53)
[2017-03-04 06:21] VITALS: BP 167/108; PULSE 92; O2SAT 95
== END 2017-03-04 06:23 | disposition home or self-care (01) ==
LOC: C.EDB 04:45 → C.EDA 06:23
DX: M54.9 Dorsalgia, unspecified (principal); I10 Essential (primary) hypertension; J44.9 Chronic obstructive pulmonary disease, unspecified; J45.909 Unspecified asthma, uncomplicated; M81.0 Age-related osteoporosis without current pathological fracture; K57.30 Diverticulosis of large intestine without perforation or abscess without bleeding; K76.9 Liver disease, unspecified; M19.90 Unspecified osteoarthritis, unspecified site; Z90.49 Acquired absence of other specified parts of digestive tract; Z90.13 Acquired absence of bilateral breasts and nipples; Z79.84 Long term (current) use of oral hypoglycemic drugs; Z79.899 Other long term (current) drug therapy; Z88.0 Allergy status to penicillin; Z88.1 Allergy status to other antibiotic agents; Z80.9 Family history of malignant neoplasm, unspecified; Z83.3 Family history of diabetes mellitus; Z82.49 Family history of ischemic heart disease and other diseases of the circulatory system

== ENCOUNTER 2017-03-06 06:20 | Emergency (ER) | payer OTHER ==
[~2017-03-06] VITALS: Ht 147.3 cm; Wt 88.5 kg
[2017-03-06 06:22] VITALS: TEMP 36.6; Ht 147.3 cm; Wt 88.5 kg
[2017-03-06] MEDS ORDERED: KETOROLAC TROMETHAMINE 30 MG/ML VIAL IM STA (06:47)
[2017-03-06] MEDS ORDERED: MoRPHine SULFATE 10 MG/ML CARP/VIAL IM STA (06:47)
--- NOTE | 2017-03-06 07:24 | EMERGENCY ROOM VISIT NOTE ---
History Report prepared by Margaret: Oren Iverson Under the Supervision of: Dr. Cosme Sullivan D.O. First contact with patient: 06:26 Chief Complaint: BACK PAIN Stated Complaint: BACK PAIN History of Present Illness The patient is a 71 year old female who presents to the Emergency Room with complaints of persistent chronic lower left back pain that started 40 years ago. The patient states that the pain has gotten a bit worse over the past 3 days. She says that she has been seen here often for the back pain recently. The patient states that she is here for the same back pain, and it has not changed position for 40 years. She says that she has been taking 50 mg Tramadol for the pain, but has to take around 8-10 pills within 5 hours to get it to decrease any of the pain. The patient follows up with pain management. She denies any pain radiating anywhere else, including abdominal pain or leg pain. The patient also denies any weakness/numbness in her legs, urinary symptoms, or bowel movement issues. She notes that she is chronically hypertensive, and has talked to her primary care physician about this. The patient has a history of cancer. Source of History: patient Onset: Started 40 years ago, worsened a bit over past 3 days Position: back (lower left) Timing: worsening, other (persistent) Modifying Factors (Relieving): other (Tramadol) Associated Symptoms: No abdominal pain, No urinary symptoms, No weakness ( in legs), No numbness (in legs) Note: Associated symptoms: Denies bowel movement issues, leg pain. Review of Systems See HPI for pertinent positives & negatives. A total of 10 systems reviewed and were otherwise negative. Past Medical & Surgical Medical Problems: (1) Asthma, Unspecified (2) Cholecystectomy (3) Chronic Liver Dis Nec (4) Chronic obstructive lung disease (5) Chronic osteoarthritis (6) Diverticulosis Colon (W/O Ment Of Hemorrhage) (7) History of bilateral mastectomy (8) Hypertension Nos (9) Osteoporosis (10) Pneumonia, Organism Nos (11) Replacement of total knee joint Family History Cancer Diabetes mellitus Hypertension Lung disease Social History Smoking Status: Former Smoker Alcohol Use: none Drug Use: none Marital Status: single Housing Status: lives alone Occupation Status: employed Current/Historical Medications Scheduled Metformin HCl (Metformin HCl), 500 MG PO QAM Methenamine Mandelate (Methenamine Mandelate), 1 GM PO HS Oxybutynin Chloride (Oxybutynin Chloride ER), 10 MG PO DAILY @ NOON Allergies Coded Allergies: Amoxicillin (Verified Allergy, Unknown, childhood allergy, 01/07/17) Penicillins (Verified Allergy, Unknown, HAPPENED A CHILD, 01/07/17) Physical Exam Vital Signs Date Time Temp Pulse Resp B/P (MAP) Pulse Ox O2 Delivery O2 Flow Rate FiO2 03/06/17 07:53 84 18 167/103 92 Room Air 03/06/17 07:08 95 03/06/17 06:22 36.6 88 20 173/89 96 Room Air Physical Exam GENERAL: sitting on chair, disheveled, intermittently grabbing left lower back, non toxic. EYE EXAM: normal conjunctiva OROPHARYNX: no exudate, no erythema, lips, buccal mucosa, and tongue normal and mucous membranes are moist NECK: supple, no nuchal rigidity, no adenopathy, non-tender LUNGS: Clear to auscultation. Normal chest wall mechanics HEART: no murmurs, S1 normal and S2 normal ABDOMEN: abdomen soft, non-tender, normo-active bowel sounds, no masses, no rebound or guarding. BACK: Spinal stimulator in place, upper lumbar, lower thoracic, acute left upper paraspinal tenderness which is reproducible. Skin intact, no erythema or induration. SKIN: no rashes and no bruising UPPER EXTREMITIES: upper extremities are grossly normal. LOWER EXTREMITIES: Flexion extension of hip, knee, ankle and EHL 5/5 bilaterally. Able to ambulate within room without difficulty, gross sensations intact. Unable to relax for patellar reflexes. NEURO EXAM: Normal sensorium, cranial nerves II-XII grossly intact, normal speech, no gross weakness of arms. Medical Decision & Procedures ER Provider Diagnostic Interpretation: X-ray results as stated below per my review and the radiologist's interpretation : THORACIC SPINE 3 VIEWS, LUMBAR SPINE 3 VIEWS HISTORY: lower back pain lower thoracic COMPARISON: None. FINDINGS: There is no fracture. No subluxation. Mild S-shaped scoliosis of the thoracolumbar spine. Old stimulator lead seen within the left side of the lumbar region. The sacrum appears intact. Moderate degenerative disease seen throughout the thoracic and lumbar spine. There is also severe degenerative disc disease at T9-T10. IMPRESSION: No fracture or subluxation within the thoracic spine. Moderate degenerative disc disease throughout the thoracolumbar spine with mild S-shaped scoliosis. Electronically signed by: Shailesh Leblanc M.D. 03/06/2017 7:46 AM Dictated Date/Time: 03/06/2017 7:43 AM THORACIC SPINE 3 VIEWS, LUMBAR SPINE 3 VIEWS HISTORY: lower back pain lower thoracic COMPARISON: None. FINDINGS: There is no fracture. No subluxation. Mild S-shaped scoliosis of the thoracolumbar spine. Old stimulator lead seen within the left side of the lumbar region. The sacrum appears intact. Moderate degenerative disease seen throughout the thoracic and lumbar spine. There is also severe degenerative disc disease at T9-T10. IMPRESSION: No fracture or subluxation within the thoracic spine. Moderate degenerative disc disease throughout the thoracolumbar spine with mild S-shaped scoliosis. Electronically signed by: Shailesh Leblanc M.D. 03/06/2017 7:46 AM Dictated Date/Time: 03/06/2017 7:43 AM Medications Administered Medications (Trade) Dose Ordered Sig/Nolan Route Start Time Stop Time Status Last Admin Dose Admin Morphine Sulfate (MoRPHine SULFATE INJ) 6 mg NOW STAT IM 03/06/17 06:47 03/06/17 06:49 DC 03/06/17 07:04 6 MG Ketorolac Tromethamine (Toradol Inj) 30 mg NOW STAT IM 03/06/17 06:47 03/06/17 06:49 DC 03/06/17 07:04 30 MG ED Course ED COURSE: Vital signs were reviewed and showed hypertensive vitals. The patients medical record was reviewed The above diagnostic studies were performed and reviewed. ED treatments and interventions as stated above. 0641: The patient was evaluated in room B2. A complete history and physical examination was performed. 0647: Ordered Toradol Inj 30 mg IM, Morphine Sulfate Inj 6 mg IM. 0740: The patient was able to walk to x-ray without difficulty. 0810: Upon reevaluation, the patient is feeling much better. I discussed my findings with the patient and she understands and agrees with the treatment plan. Based on the patients age, coexisting illnesses, exam and lab findings the decision to treat as an outpatient was made. The patient remained stable while under my care. The patient appeared well at the time of discharge. Medical Decision Differential diagnoses includes but is not limited to lumbar radiculopathy, muscle strain, facture, cauda equina, mass, and disc herniation. Medication Reconciliation: I attest that I have personally reviewed the patient' s current medication list. Blood pressure screening: Patient was found to have an elevated blood pressure and was referred to their primary doctor for recheck and further treatment. I instructed the patient on hypertension. Patient is a 71-year-old female who presents the ER for left lower back pain. Patient notes the pain has been there for the past 4 years and waxes and wanes in intensity. She notes that worsened last Wednesday and has been persistent. She denies any weakness or numbness in her legs. No saddle paresthesias. Patient is able to ambulate without difficulty. Neurologic exam is intact. She is hypertensive but patient notes that she is always hypertensive because she will not take more than 3 medications. She does follow with pain management. Upon review of her chart no recent imaging of her lumbar spine. X- rays the lumbar and thoracic spine were obtained and were unremarkable. She was given IM morphine and Toradol with improvement. She is able to ambulate out of the department upon discharge. Discussed with Pt concerning signs and symptoms to watch out for. Pt was instructed to follow up with their PCP and discussed with the patient their option to return to the ED at anytime for persistent or worsening symptoms. The appropriate anticipatory guidance and out- patient management, including indications for return to the emergency department , were explained at length to the patient and understood. Impression Primary Impression: Low back pain Scribe Attestation The scribe's documentation has been prepared under my direction and personally reviewed by me in its entirety. I confirm that the note above accurately reflects all work, treatment, procedures, and medical decision making performed by me. Departure Information Dispostion Home / Self-Care Referrals Yuri Fregoso MD (PCP) Forms HOME CARE DOCUMENTATION FORM, IMPORTANT VISIT INFORMATION Patient Instructions Back Pain - [facility], [facility] Additional Instructions Please follow up with your primary care doctor with in the next 24 hours. Any worsening of your symptoms, please return to the ED immediately. This includes any fevers greater than 100.4, weakness or numbness in your arms or legs, confusion, inability to urinate, inability to move your bowels, or any other concerning signs or symptoms from your standpoint. Please follow up with your primary care doctor in regards to your elevated blood pressure. Problem Qualifiers Primary Impression: Low back pain Chronicity: acute Back pain laterality: left Sciatica presence: without sciatica Qualified Codes: M54.5 - Low back pain
--- NOTE | 2017-03-06 07:47 | DIAGNOSTIC IMAGING REPORT ---
THORACIC SPINE 3 VIEWS, LUMBAR SPINE 3 VIEWS HISTORY: lower back pain lower thoracic COMPARISON: None. FINDINGS: There is no fracture. No subluxation. Mild S-shaped scoliosis of the thoracolumbar spine. Old stimulator lead seen within the left side of the lumbar region. The sacrum appears intact. Moderate degenerative disease seen throughout the thoracic and lumbar spine. There is also severe degenerative disc disease at T9-T10. IMPRESSION: No fracture or subluxation within the thoracic spine. Moderate degenerative disc disease throughout the thoracolumbar spine with mild S-shaped scoliosis. Electronically signed by: Shailesh Leblanc M.D. 03/06/2017 7:46 AM Dictated Date/Time: 03/06/2017 7:43 AM
[2017-03-06 07:53] VITALS: BP 167/103; PULSE 84; O2SAT 92
== END 2017-03-06 08:21 | disposition home or self-care (01) ==
LOC: C.EDB 06:21
DX: M54.5 Low back pain (principal); M81.0 Age-related osteoporosis without current pathological fracture; M51.34 Other intervertebral disc degeneration, thoracic region; M51.36 Other intervertebral disc degeneration, lumbar region; J44.9 Chronic obstructive pulmonary disease, unspecified; Z87.891 Personal history of nicotine dependence

== ENCOUNTER 2017-03-07 10:37 | Emergency (ER) | payer OTHER ==
[~2017-03-07] VITALS: Ht 147.3 cm; Wt 88.3 kg
[2017-03-07 10:38] VITALS: TEMP 36.6; Ht 147.3 cm; Wt 88.3 kg
[2017-03-07] MEDS ORDERED: MoRPHine SULFATE 10 MG/ML CARP/VIAL IM STA (11:15)
--- NOTE | 2017-03-07 11:35 | EMERGENCY ROOM VISIT NOTE ---
History First contact with patient: 10:45 Chief Complaint: BACK PAIN Stated Complaint: BACK PAIN History of Present Illness The patient is a 71 year old female who presents to the Emergency Room with complaints of back pain for the past 40+ years. She was in the ER yesterday with the same complaint and only the intensity of the pain has changed since then. She reports her pain went from a severity 10/10 to 3/10 yesterday but she usually her pain goes down to a zero and then it gets better (she was given 6mg morphine and 30mg Toradol). Her pain is currently 10/10 on the left side of her back. No radiation down her leg. She has chronic urinary stress incontinence with no acute changes. No bowel incontinence or josh-anal numbness. No leg weakness or numbness. She is under pain management and has a follow up appointment at the end of the week. She has an appointment with her PCP tomorrow. She is hypertensive but refusing any medication for this. No headache, vision changes. Review of Systems See HPI for pertinent positives & negatives. A total of 10 systems reviewed and were otherwise negative. Past Medical/Surgical History Medical Problems: (1) Asthma, Unspecified (2) Cholecystectomy (3) Chronic Liver Dis Nec (4) Chronic obstructive lung disease (5) Chronic osteoarthritis (6) Diverticulosis Colon (W/O Ment Of Hemorrhage) (7) History of bilateral mastectomy (8) Hypertension Nos (9) Osteoporosis (10) Pneumonia, Organism Nos (11) Replacement of total knee joint Family History Cancer Diabetes mellitus Hypertension Lung disease Social History Smoking Status: Former Smoker Alcohol Use: none Drug Use: none Marital Status: single Housing Status: lives alone Occupation Status: employed Current/Historical Medications Scheduled Metformin HCl (Metformin HCl), 500 MG PO QAM Methenamine Mandelate (Methenamine Mandelate), 1 GM PO HS Oxybutynin Chloride (Oxybutynin Chloride ER), 10 MG PO DAILY @ NOON Allergies Coded Allergies: Amoxicillin (Verified Allergy, Unknown, childhood allergy, 03/07/17) Penicillins (Verified Allergy, Unknown, HAPPENED A CHILD, 03/07/17) Physical Exam Vital Signs Date Time Temp Pulse Resp B/P (MAP) Pulse Ox O2 Delivery O2 Flow Rate FiO2 03/07/17 13:25 85 20 189/111 94 03/07/17 11:59 92 18 208/134 92 Room Air 03/07/17 10:38 36.6 80 16 202/106 94 Room Air Physical Exam VITAL SIGNS: were reviewed as above GENERAL: mild acute distress in pain with intermittent spasms, sitting in chair , pain out of proportion of examination SKIN: Warm dry and pink, no rashes HEAD: Normocephalic and atraumatic EYES: extraocular muscles intact, pupils equal and reactive to light, mild left sided eyelid droop (reports this is chronic) OROPHARYNX: non erythematous, clear and moist NECK: Supple, no adenopathy or meningismus LUNGS: clear to auscultation, no accessory muscle use HEART: Regular rate and rhythm, heart sounds 1+2, no murmurs ABDOMEN: Soft and nontender, bowel sounds normal BACK: no central spinal tenderness, pain on left lower back on palpation with muscle spasm EXTREMITIES: Warm and well perfused, no calf tenderness/swelling, no pedal edema , DP/PT strong and equal b/l NEUROLOGICALLY: Awake alert and oriented without focal motor deficit. Ambulates with walker. b/l hip flexion, b/l knee flex/ext 5/5, b/l ankle dorsi/ plantarflex 5/5, B/l knee, ankle reflexes 2+. Cerebellar testing is within normal limits. There is no nystagmus. Mild left eyelid droop as noted above there is no other facial droop. Speech is clear. Vision is grossly normal. She was able to ambulate easily with her walker despite the pain MUSCULOSKELETAL: Good muscle tone. No evidence of trauma Medical Decision & Procedures Medications Administered Medications (Trade) Dose Ordered Sig/Nolan Route Start Time Stop Time Status Last Admin Dose Admin Morphine Sulfate (MoRPHine SULFATE INJ) 6 mg NOW STAT IM 03/07/17 11:15 03/07/17 11:16 DC 03/07/17 11:25 6 MG Ketorolac Tromethamine (Toradol Inj) 30 mg NOW STAT IM 03/07/17 11:46 03/07/17 11:47 DC 03/07/17 11:46 30 MG Morphine Sulfate (MoRPHine SULFATE INJ) 2 mg NOW STAT IM 03/07/17 12:39 03/07/17 12:40 DC 03/07/17 12:47 2 MG Medical Decision Prior records/ancillary studies reviewed. Triage Nursing notes reviewed. Additional history obtained from [employer]. The patient's history was concerning for back pain. Differential diagnosis: Etiologies such as musculoskeletal, disc herniation, fracture, aortic disease, metastatic disease, cord compression, discitis, infection, renal colic, gastrointestinal, acute exacerbation of chronic back pain, sciatica, cauda equina, as well as others were entertained. Physical findings: As above. No focal neurologic findings noted. ER treatment provided: Morphine 6mg IM, Toradol 30 mg IM, Morphine 2mg IM On reassessment the patient's pain reduced from 10 to 8/10 however she does note some tolerance to the morphine as previously is has worked better. No additional diagnostic labs or imaging were performed as she had previously had these recently. This appears to be consistent with sciatic type pain. The patient's physical examination and detailed history did not reveal any red flags for back pain such as those listed in the differential diagnosis. Therefore advanced diagnostics and consultations were felt to be unwarranted. By the evaluation outlined above emergent etiologies such as fracture, aortic disease, metastatic disease, infection, renal colic, gastrointestinal, cord compression, cauda equina, as well as others were deemed relatively unlikely. The patient was informed about the findings as listed above. All questions were answered and she was encouraged to follow up with her PCP and pain management team for better control of her back pain. Muscle relaxants and other controlled substances were not prescribed as outpatient due to concern she is taking excessive tramadol not as prescribed. Return instructions were outlined and the patient was discharged in stable condition. [place] Drug Monitoring Program Search Results: patient reviewed within database Drug Monitoring Findings: Tramadol last prescribed 01/22/17 30 tabs. Does not take this as prescribed ( takes 100mg then 50 mg every hour until her pain goes away). Impression Primary Impression: Strain of lumbar region Departure Information Dispostion Home / Self-Care Condition GOOD Referrals Yuri Fregoso MD (PCP) Patient Instructions My [facility] Resident Tracking Resident Involvement: Resident Care Provided Care Provided: Adult ED Problem Qualifiers Primary Impression: Strain of lumbar region Encounter type: sequela Qualified Codes: S39.012S - Strain of muscle, fascia and tendon of lower back, sequela
[2017-03-07] MEDS ORDERED: KETOROLAC TROMETHAMINE 30 MG/ML VIAL IV STA (11:42)
[2017-03-07] MEDS ORDERED: KETOROLAC TROMETHAMINE 30 MG/ML VIAL IM STA (11:46)
[2017-03-07] MEDS ORDERED: MoRPHine SULFATE 2 MG/ML CARP IM STA (12:39)
[2017-03-07 13:25] VITALS: BP 189/111; PULSE 85; O2SAT 94
--- NOTE | 2017-03-07 14:53 | EMERGENCY ROOM VISIT NOTE ---
History Report prepared by Margaret: Oren Iverson Under the Supervision of: Dr. Cosme Sullivan D.O. First contact with patient: 10:44 Chief Complaint: BACK PAIN Stated Complaint: BACK PAIN History of Present Illness The patient is a 71 year old female who presents to the Emergency Room with complaints of worsening left lower back pain over the past few months. The patient says that she has had the same back pain for over 30 years. She says that she has not been taking anything for the pain because she ran out of Tramadol. The patient was seen here yesterday for the same pain, and was given Toradol and Morphine. She states that the pain was brought down to a 3 out of 10 in severity when she left here yesterday, but the pain is currently back to a 10 out of 10 in severity. The patient adds that she felt a little hot on the way here. She says that she follows up with pain management, and was told to come here for Morphine shots if she still has the pain. The patient denies any weakness or numbness in her legs. She is able to void and move her bowels without difficulty. She is able to ambulate without difficulty. Source of History: patient Onset: Over past few months - has had chronic low back pain for over 30 years Position: back (low left) Symptom Intensity: 10/10 currently Timing: worsening Associated Symptoms: No weakness (in legs), No numbness (in legs) Note: Associated symptoms: [place] a little hot when coming here. Review of Systems See HPI for pertinent positives & negatives. A total of 10 systems reviewed and were otherwise negative. Past Medical & Surgical Medical Problems: (1) Asthma, Unspecified (2) Cholecystectomy (3) Chronic Liver Dis Nec (4) Chronic obstructive lung disease (5) Chronic osteoarthritis (6) Diverticulosis Colon (W/O Ment Of Hemorrhage) (7) History of bilateral mastectomy (8) Hypertension Nos (9) Osteoporosis (10) Pneumonia, Organism Nos (11) Replacement of total knee joint Family History Cancer Diabetes mellitus Hypertension Lung disease Social History Smoking Status: Former Smoker Alcohol Use: none Drug Use: none Marital Status: single Housing Status: lives alone Occupation Status: employed Current/Historical Medications Scheduled Metformin HCl (Metformin HCl), 500 MG PO QAM Methenamine Mandelate (Methenamine Mandelate), 1 GM PO HS Oxybutynin Chloride (Oxybutynin Chloride ER), 10 MG PO DAILY @ NOON Allergies Coded Allergies: Amoxicillin (Verified Allergy, Unknown, childhood allergy, 03/07/17) Penicillins (Verified Allergy, Unknown, HAPPENED A CHILD, 03/07/17) Physical Exam Vital Signs Date Time Temp Pulse Resp B/P (MAP) Pulse Ox O2 Delivery O2 Flow Rate FiO2 03/07/17 13:25 85 20 189/111 94 03/07/17 11:59 92 18 208/134 92 Room Air 03/07/17 10:38 36.6 80 16 202/106 94 Room Air Physical Exam GENERAL: sitting up in bed, disheveled, no acute distress, holding her left lower back EYE EXAM: normal conjunctiva OROPHARYNX: no exudate, no erythema, lips, buccal mucosa, and tongue normal and mucous membranes are moist NECK: supple, no nuchal rigidity, no adenopathy, non-tender LUNGS: Clear to auscultation. Normal chest wall mechanics HEART: no murmurs, S1 normal and S2 normal ABDOMEN: abdomen soft, non-tender, normo-active bowel sounds, no masses, no rebound or guarding. BACK: Acute reproducible tenderness over left SI joint tracking down into hip. SKIN: no rashes and no bruising UPPER EXTREMITIES: upper extremities are grossly normal. LOWER EXTREMITIES: Flexion extension of hip, knee, ankles, and EHL 5/5 bilaterally. Gross sensations intact. NEURO EXAM: Normal sensorium, cranial nerves II-XII grossly intact, normal speech, no gross weakness of arms, no gross weakness of legs. Able to ambulate with walker. Medical Decision & Procedures Medications Administered Medications (Trade) Dose Ordered Sig/Nolan Route Start Time Stop Time Status Last Admin Dose Admin Morphine Sulfate (MoRPHine SULFATE INJ) 6 mg NOW STAT IM 03/07/17 11:15 03/07/17 11:16 DC 03/07/17 11:25 6 MG Ketorolac Tromethamine (Toradol Inj) 30 mg NOW STAT IM 03/07/17 11:46 03/07/17 11:47 DC 03/07/17 11:46 30 MG Morphine Sulfate (MoRPHine SULFATE INJ) 2 mg NOW STAT IM 03/07/17 12:39 03/07/17 12:40 DC 03/07/17 12:47 2 MG ED Course ED COURSE: Vital signs were reviewed and showed hypertensive vitals. The patients medical record was reviewed The above diagnostic studies were performed and reviewed. ED treatments and interventions as stated above. 1114: The patient was evaluated in room C3. A complete history and physical examination was performed. 1115: Ordered Morphine Sulfate Inj 6 mg IM. 1146: Ordered Toradol Inj 30 mg IM. 1239: Ordered Morphine Sulfate Inj 2 mg IM. 1311: Upon reevaluation, the patient is feels much better. I discussed my findings with the patient and she understands and agrees with the treatment plan. Based on the patients age, coexisting illnesses, exam and lab findings the decision to treat as an outpatient was made. The patient remained stable while under my care. The patient appeared well at the time of discharge. Medical Decision Differential diagnoses includes but is not limited to lumbar radiculopathy, muscle strain, facture, cauda equina, mass, and disc herniation. Medication Reconciliation: I attest that I have personally reviewed the patient' s current medication list. Blood pressure screening: Patient was found to have an elevated blood pressure and was referred to their primary doctor for recheck and further treatment. Patient is a 71-year-old female who presents the ER with chronic lumbar abdominal pain. Pain is clearly reproducible on exam. X-rays of the thoracic and lumbar spine yesterday were unremarkable. Patient is able ambulate without difficulty. She's been here 8 times within the past 3 months but same complaint. She notes the pain has been unchanged for the past 30 years. She does follow with pain management. She takes tramadol. She notes that she has ran out of her prescription. No signs of cauda equina. No fevers. X-rays were reviewed from yesterday. She was again instructed to follow-up with her primary care doctor in regards to her hypertension but she notes that she will not take any more medications. She was given IM morphine and discharged follow- up with her primary care doctor and pain management. Discussed with Pt concerning signs and symptoms to watch out for. Pt was instructed to follow up with their PCP and discussed with the patient their option to return to the ED at anytime for persistent or worsening symptoms. The appropriate anticipatory guidance and out-patient management, including indications for return to the emergency department, were explained at length to the patient and understood. Impression Primary Impression: Strain of lumbar region Scribe Attestation The scribe's documentation has been prepared under my direction and personally reviewed by me in its entirety. I confirm that the note above accurately reflects all work, treatment, procedures, and medical decision making performed by me. Departure Information Dispostion Home / Self-Care Referrals Yuri Fregoso MD (PCP) Patient Instructions Back Pain - [facility], Back Pain Relieve, My [facility] Additional Instructions You were diagnosed with musculoskeletal back pain and hypertension. This is a chronic issue with no acute findings on history or examination. You were treated in the ER with pain medication but you should follow up with your primary care provider and pain management doctor for better pain control and plan if this pain returns. The main treatment for this type of back pain is physical therapy. We recommend taking medication for your blood pressure as previously discussed with your primary care provider. Continuous high blood pressure increases your risk of stroke, heart attacks, kidney damage and other life threatening conditions. You were given medications during this visit that will inhibit your ability to drive, operate machinery and work. Please do NOT drive, operate machinery or work for the next 12hrs. Problem Qualifiers Primary Impression: Strain of lumbar region Encounter type: sequela Qualified Codes: S39.012S - Strain of muscle, fascia and tendon of lower back, sequela
== END 2017-03-07 13:27 | disposition home or self-care (01) ==
LOC: C.EDB 10:38 → C.EDC 13:27
DX: S39.012S Strain of muscle, fascia and tendon of lower back, sequela (principal); X58.XXXS Exposure to other specified factors, sequela; N39.3 Stress incontinence (female) (male); J45.909 Unspecified asthma, uncomplicated; I10 Essential (primary) hypertension; J44.9 Chronic obstructive pulmonary disease, unspecified; K76.9 Liver disease, unspecified; M19.90 Unspecified osteoarthritis, unspecified site; K57.30 Diverticulosis of large intestine without perforation or abscess without bleeding; M81.0 Age-related osteoporosis without current pathological fracture; Z90.13 Acquired absence of bilateral breasts and nipples; Z96.659 Presence of unspecified artificial knee joint; Z79.84 Long term (current) use of oral hypoglycemic drugs; Z87.891 Personal history of nicotine dependence; Z83.3 Family history of diabetes mellitus; Z82.49 Family history of ischemic heart disease and other diseases of the circulatory system

== ENCOUNTER 2017-04-03 06:49 | Emergency (ER) | payer OTHER ==
[~2017-04-03] VITALS: Ht 147.3 cm; Wt 87.5 kg
[2017-04-03 06:53] VITALS: TEMP 36.6; O2SAT 93; Ht 147.3 cm; Wt 87.5 kg
[2017-04-03] MEDS ORDERED: KETOROLAC TROMETHAMINE 30 MG/ML VIAL IM STA (07:09)
[2017-04-03] MEDS ORDERED: MoRPHine SULFATE 10 MG/ML CARP/VIAL IM STA (07:09)
[2017-04-03] MEDS ORDERED: OXYC-57 PO (07:38)
--- NOTE | 2017-04-03 08:17 | EMERGENCY ROOM VISIT NOTE ---
History Report prepared by Margaret: Dennis Parker Under the Supervision of: Dr. Piper Bethea D.O. First contact with patient: 07:00 Chief Complaint: BACK PAIN Stated Complaint: BACK PAIN History of Present Illness The patient is a 71 year old female who presents to the Emergency Room with complaints of worsening back pain starting last evening. She rates her pain as a 10/10 in severity. The patient states that she has a history of chronic back pain that started when she was 31 years old. She reports that she typically takes pain medication for the back pain and only takes it whenever she starts feeling pain. The patient reports that she sees a pain specialist for her condition and has had MRIs and X Rays done in the past. She states that she typically has injections to help her back pain with Dr. Gomez. The patient reports that she has visited the ED 9 times in the last month and states that her doctor knows about her frequent visits. She reports that she is usually given Morphine for her pain whenever she reports to the ED and is given a shot in her arm and buttocks. The patient reports that the pain is not usually associated with a tingling or pinching sensation. She admits that her back pain typically stays in one spot. The patient states that her back pain that has been occurring in the same spot worsened last evening causing her to take Percocet at 2000 and 0000, but denies any relief of symptoms. She denies any fevers, chills, nausea, vomiting, change in bowel movement, urinary symptoms, history of spine surgery, or change in activity. Source of History: patient Onset: last evening Position: back Symptom Intensity: 10/10 Timing: worsening Modifying Factors (Relieving): other (Percocet) Associated Symptoms: No fevers, No chills, No nausea, No vomiting, No urinary symptoms Review of Systems See HPI for pertinent positives & negatives. A total of 10 systems reviewed and were otherwise negative. Past Medical & Surgical Medical Problems: (1) Asthma, Unspecified (2) Cholecystectomy (3) Chronic Liver Dis Nec (4) Chronic obstructive lung disease (5) Chronic osteoarthritis (6) Diverticulosis Colon (W/O Ment Of Hemorrhage) (7) History of bilateral mastectomy (8) Hypertension Nos (9) Osteoporosis (10) Pneumonia, Organism Nos (11) Replacement of total knee joint Family History Cancer Diabetes mellitus Hypertension Lung disease Social History Smoking Status: Former Smoker Alcohol Use: none Drug Use: none Marital Status: single Housing Status: lives alone Occupation Status: employed Current/Historical Medications Scheduled Metformin HCl (Metformin HCl), 500 MG PO QAM Methenamine Mandelate (Methenamine Mandelate), 1 GM PO HS Oxybutynin Chloride (Oxybutynin Chloride ER), 10 MG PO DAILY @ NOON Scheduled PRN Oxycodone/Acetaminophen 5MG/325MG (Percocet 5MG/325MG), 1 TABLET PO Q8 PRN for Pain Allergies Coded Allergies: Amoxicillin (Verified Allergy, Unknown, childhood allergy, 04/03/17) Penicillins (Verified Allergy, Unknown, HAPPENED A CHILD, 04/03/17) Physical Exam Vital Signs Date Time Temp Pulse Resp B/P (MAP) Pulse Ox O2 Delivery O2 Flow Rate FiO2 04/03/17 08:42 90 16 186/100 04/03/17 06:53 36.6 89 18 194/105 93 Room Air Physical Exam GENERAL: alert, well appearing, well nourished, no distress, non-toxic EYE EXAM: normal conjunctiva, PERRL and EOM's grossly intact OROPHARYNX: no exudate, no erythema, lips, buccal mucosa, and tongue normal and mucous membranes are moist NECK: supple, no nuchal rigidity, no adenopathy, non-tender LUNGS: Clear to auscultation. Normal chest wall mechanics HEART: no murmurs, S1 normal and S2 normal ABDOMEN: abdomen soft, non-tender, normo-active bowel sounds, no masses, no rebound or guarding. BACK: Left lumbar spinal region pain reproducible on exam. Back is symmetrical on inspection and there is no deformity, no midline tenderness, no CVA tenderness. SKIN: no rashes and no bruising UPPER EXTREMITIES: upper extremities are grossly normal. LOWER EXTREMITIES: No pitting edema. NEURO EXAM: Normal sensorium, cranial nerves II-XII grossly intact, normal speech, no gross weakness of arms, no gross weakness of legs. No drift. Finger to nose intact. Gross sensation intact. Medical Decision & Procedures Medications Administered Medications (Trade) Dose Ordered Sig/Nolan Route Start Time Stop Time Status Last Admin Dose Admin Morphine Sulfate (MoRPHine SULFATE INJ) 6 mg NOW STAT IM 04/03/17 07:09 04/03/17 07:11 DC 7/1/17 07:21 6 MG Ketorolac Tromethamine (Toradol Inj) 30 mg NOW STAT IM 04/03/17 07:09 04/03/17 07:11 DC 04/03/17 07:20 30 MG ED Course 07: The patient was evaluated in room B03B. A complete history and physical exam was performed. 708: Toradol Injection 30 mg IM, Morphine Sulfate 6 mg IM. 0843 Upon reevaluation, the patient is feeling better. I discussed the findings and the treatment plan with the patient. She verbalizes agreement and understanding. She was discharged home. Medical Decision The differential diagnosis includes but is not limited to: etiologies such as musculoskeletal, disc herniation, fracture, aortic disease, metastatic disease, cord compression, discitis, infection, renal colic, gastrointestinal, acute exacerbation of chronic back pain, sciatica, cauda equina, as well as others were entertained. Medication Reconciliation: I attest that I have personally reviewed the patient' s current medication list. Blood pressure screening: Patient was found to have an elevated blood pressure and was referred to their primary doctor for recheck and further treatment. Urine dip did not reveal any evidence of infection. She with ongoing low semi- history of back pain, states this is similar to prior recurrences in the same spot. Denies any recent trauma or change in activity. Patient said she has had multiple prior imaging studies and follows up pain management. Patient improved here following several doses of morphine and Toradol. The symptoms to suggest cauda equina, acute discitis, risk for epidural abscess or hematoma. No other symptoms to suggest your to check infection, pyelonephritis, kidney stone. No other abdominal pain, doubt vascular etiology including AAA or dissection. Patient with no other complaints, vital signs stable, blood pressure was found to be elevated initially, however patient states that she does not take her blood pressure medication as prescribed. Repeat blood pressure was improved but still elevated. This was discussed with patient at bedside prior to discharge and she was encouraged to comply with recommendations for antihypertensive medications as well as follow-up with her family doctor. Encouraged her to follow up with her painter helper to discuss the frequency of ER visits and her current pain regimen. Patient verbalized understanding of all this, was able to family with a steady gait, discussed symptoms to watch and return for, patient was agreeable with plan. Impression Primary Impression: Low back pain Scribe Attestation The scribe's documentation has been prepared under my direction and personally reviewed by me in its entirety. I confirm that the note above accurately reflects all work, treatment, procedures, and medical decision making performed by me. Departure Information Dispostion Home / Self-Care Referrals Yuri Fregoso MD (PCP) Forms HOME CARE DOCUMENTATION FORM, IMPORTANT VISIT INFORMATION Patient Instructions My [facility] Additional Instructions Please continue regular medications as prescribed. Please call and follow up with your painter helper and discuss with them the frequency of your exacerbations of pain that required an emergency room visit. Please avoid any studies activity or heavy lifting until you're feeling better. Please continue to monitor for any worsening symptoms including increasing pain, new location of pain, numbness or tingling, fevers, a change in her bowel or bladder function. If you have these or any other new and concerning symptoms please return the emergency room. Problem Qualifiers Primary Impression: Low back pain Chronicity: chronic Back pain laterality: left Sciatica presence: without sciatica Qualified Codes: M54.5 - Low back pain; G89.29 - Other chronic pain
[2017-04-03 08:42] VITALS: BP 186/100; PULSE 90
== END 2017-04-03 08:44 | disposition home or self-care (01) ==
LOC: C.EDB 06:51
DX: M54.5 Low back pain (principal); G89.29 Other chronic pain; J45.909 Unspecified asthma, uncomplicated; Z90.49 Acquired absence of other specified parts of digestive tract; K76.9 Liver disease, unspecified; J44.9 Chronic obstructive pulmonary disease, unspecified; M19.90 Unspecified osteoarthritis, unspecified site; Z90.13 Acquired absence of bilateral breasts and nipples; I10 Essential (primary) hypertension; M81.0 Age-related osteoporosis without current pathological fracture; Z87.01 Personal history of pneumonia (recurrent); Z96.659 Presence of unspecified artificial knee joint; Z80.9 Family history of malignant neoplasm, unspecified; Z83.3 Family history of diabetes mellitus; Z82.49 Family history of ischemic heart disease and other diseases of the circulatory system; Z87.891 Personal history of nicotine dependence; Z79.899 Other long term (current) drug therapy

== ENCOUNTER 2017-10-24 10:02 | Emergency (ER) | payer OTHER ==
[~2017-10-24] VITALS: Ht 147.3 cm; Wt 87.5 kg
[2017-10-24 10:08] VITALS: TEMP 37.2; Ht 147.3 cm; Wt 87.5 kg
[2017-10-24 11:06] LABS: BASO % 0.2 %; BASO ABS # 0.02 K/uL (0-0.2); EOS % 1.3 %; EOS ABS # 0.15 K/uL (0-0.5); HEMATOCRIT 43.5 % (37-47); HEMOGLOBIN 14.6 g/dL (12.0-16.0); IG# 0.03 K/uL (0.00-0.02); LYMPH % 27.4 %; LYMPH ABS # 3.06 K/uL (1.2-3.4); MEAN CELL VOLUME 91.6 fL (80-100); MEAN CORPUSCULAR HEMOGLOBIN 30.7 pg (25-34); MEAN CORPUSCULAR HGB CONC 33.6 g/dl (32-36); MEAN PLATELET VOLUME 11.9 fL (7.4-10.4); MONO % 7.3 %; MONO ABS # 0.82 K/uL (0.11-0.59); NEUT % 63.5 %; NEUT ABS # 7.09 K/uL (1.4-6.5); PLATELET COUNT 232 K/uL (130-400); RED CELL DISTRIBUTION WIDTH CV 13.4 % (11.5-14.5); RED CELL DISTRIBUTION WIDTH SD 44.4 fL (36.4-46.3); WHITE BLOOD COUNT 11.17 K/uL (4.8-10.8)
[2017-10-24 11:13] LABS: ALBUMIN 3.4 gm/dl (3.4-5.0); ALT/SGPT 28 U/L (12-78); AST/SGOT 25 U/L (15-37); BLOOD UREA NITROGEN 11 mg/dl (7-18); CALCIUM 9.1 mg/dl (8.5-10.1); CARBON DIOXIDE 33 mmol/L (21-32); CREATININE 0.77 mg/dl (0.60-1.20); GLUCOSE 308 mg/dl (70-99); POTASSIUM 3.8 mmol/L (3.5-5.1); SODIUM 135 mmol/L (136-145)
[2017-10-24 11:17] LABS: ALKALINE PHOSPHATASE 81 U/L (45-117); TOTAL PROTEIN 7.4 gm/dl (6.4-8.2)
[2017-10-24 11:25] LABS: CKMB 1.3 ng/ml (0.5-3.6)
--- NOTE | 2017-10-24 11:31 | DIAGNOSTIC IMAGING REPORT ---
CHEST 2 VIEWS ROUTINE HISTORY: 71 years-old Female thoracic back pain acute mid back pain COMPARISON: Thoracic spine radiographs 03/06/2017, chest radiograph 04/03/2013 TECHNIQUE: PA and lateral views of the chest FINDINGS: Cardiomediastinal and hilar silhouettes are within normal limits. There is no pneumothorax, pleural effusion, focal airspace consolidation or overt pulmonary edema. Mild right hemidiaphragmatic elevation. Atherosclerosis of the aorta. Surgical clip projects over the left lung base. Probable calcific tendinosis of the right rotator cuff with calcifications measuring up to 4 mm adjacent to the right greater tuberosity of the humerus. Mild convex right curvature of the midthoracic spine. Indeterminate metallic structure projects over the upper abdomen on the lateral view measuring 3.0 cm. IMPRESSION: No acute process. The above report was generated using voice recognition software. It may contain grammatical, syntax or spelling errors. Electronically signed by: Anthony Redmond M.D. 10/24/2017 11:30 AM Dictated Date/Time: 10/24/2017 11:28 AM
--- NOTE | 2017-10-24 12:22 | EMERGENCY ROOM VISIT NOTE ---
ED Visit Note First contact with patient: 10:24 I have seen and examined this patient with Bob morales and generally agree with the treatment plan as discussed. Problem List Medical Problems: (1) Asthma, Unspecified Status: Chronic (2) Cholecystectomy Status: Resolved (3) Chronic Liver Dis Nec Status: Chronic (4) Chronic obstructive lung disease Status: Chronic (5) Chronic osteoarthritis Status: Chronic (6) Diverticulosis Colon (W/O Ment Of Hemorrhage) Status: Chronic (7) History of bilateral mastectomy Status: Resolved (8) Hypertension Nos Status: Chronic (9) Osteoporosis Status: Chronic (10) Pneumonia, Organism Nos Status: Resolved (11) Replacement of total knee joint Status: Resolved Current/Historical Medications Scheduled Metformin HCl (Metformin HCl), 250 MG PO BID Methenamine Mandelate (Methenamine Mandelate), 1 GM PO HS Oxybutynin Chloride (Oxybutynin Chloride ER), 10 MG PO DAILY @ NOON Scheduled PRN Oxycodone/Acetaminophen 5MG/325MG (Percocet 5MG/325MG), 1 TABLET PO Q8 PRN for Pain Allergies Coded Allergies: Amoxicillin (Verified Allergy, Unknown, childhood allergy, 10/24/17) Penicillins (Verified Allergy, Unknown, HAPPENED A CHILD, 10/24/17) Vital Signs Date Time Temp Pulse Resp B/P (MAP) Pulse Ox O2 Delivery O2 Flow Rate FiO2 10/24/17 10:38 92 18 216/132 95 Room Air 10/24/17 10:35 91 Room Air 10/24/17 10:29 87 10/24/17 10:08 37.2 95 18 189/112 94 Room Air Laboratory Results 10/24/17 10:30 Red Blood Count 4.75, Mean Corpuscular Volume 91.6, Mean Corpuscular Hemoglobin 30.7, Mean Corpuscular Hemoglobin Concent 33.6, Mean Platelet Volume 11.9, Neutrophils (%) (Auto) 63.5, Lymphocytes (%) (Auto) 27.4, Monocytes (%) (Auto) 7.3, Eosinophils (%) (Auto) 1.3, Basophils (%) (Auto) 0.2, Neutrophils # (Auto) 7.09, Lymphocytes # (Auto) 3.06, Monocytes # (Auto) 0.82, Eosinophils # (Auto) 0.15, Basophils # (Auto) 0.02 1/21/18 10:30 Test 10/24/17 10:30 White Blood Count 11.17 K/uL (4.8-10.8) Red Blood Count 4.75 M/uL (4.2-5.4) Hemoglobin 14.6 g/dL (12.0-16.0) Hematocrit 43.5 % (37-47) Mean Corpuscular Volume 91.6 fL (80-100) Mean Corpuscular Hemoglobin 30.7 pg (25-34) Mean Corpuscular Hemoglobin Concent 33.6 g/dl (32-36) Platelet Count 232 K/uL (130-400) Mean Platelet Volume 11.9 fL (7.4-10.4) Neutrophils (%) (Auto) 63.5 % Lymphocytes (%) (Auto) 27.4 % Monocytes (%) (Auto) 7.3 % Eosinophils (%) (Auto) 1.3 % Basophils (%) (Auto) 0.2 % Neutrophils # (Auto) 7.09 K/uL (1.4-6.5) Lymphocytes # (Auto) 3.06 K/uL (1.2-3.4) Monocytes # (Auto) 0.82 K/uL (0.11-0.59) Eosinophils # (Auto) 0.15 K/uL (0-0.5) Basophils # (Auto) 0.02 K/uL (0-0.2) RDW Standard Deviation 44.4 fL (36.4-46.3) RDW Coefficient of Variation 13.4 % (11.5-14.5) Immature Granulocyte % (Auto) 0.3 % Immature Granulocyte # (Auto) 0.03 K/uL (0.00-0.02) Anion Gap 4.0 mmol/L (3-11) Est Creatinine Clear Calc Drug Dose 61.1 ml/min Estimated GFR () 88.8 Estimated GFR (Non- 76.6 BUN/Creatinine Ratio 14.1 (10-20) Calcium Level 9.1 mg/dl (8.5-10.1) Total Bilirubin 0.5 mg/dl (0.2-1) Aspartate Amino Transf (AST/SGOT) 25 U/L (15-37) Alanine Aminotransferase (ALT/SGPT) 28 U/L (12-78) Alkaline Phosphatase 81 U/L (45-117) Total Creatine Kinase 53 U/L (26-192) Creatine Kinase MB 1.3 ng/ml (0.5-3.6) Creatine Kinase MB Ratio 2.5 (0-3.0) Troponin I < 0.015 ng/ml (0-0.045) Pro-B-Type Natriuretic Peptide 149 pg/ml (0-900) Total Protein 7.4 gm/dl (6.4-8.2) Albumin 3.4 gm/dl (3.4-5.0) Globulin 4.0 gm/dl (2.5-4.0) Albumin/Globulin Ratio 0.9 (0.9-2) Beta-Hydroxybutyric Acid 1.09 mg/dL (0.2-2.81) Departure Information Referrals Yuri Fregoso MD (PCP) Patient Instructions My [facility]
[2017-10-24 12:31] VITALS: BP 195/100; PULSE 83; O2SAT 95
[2017-10-24] MEDS ORDERED: AZITHROMYCIN 250 MG TAB PO STA (13:04)
[2017-10-24] MEDS ORDERED: AZIT-60 PO (13:11)
--- NOTE | 2017-10-24 19:52 | EMERGENCY ROOM VISIT NOTE ---
History First contact with patient: 10:24 Chief Complaint: RESPIRATORY PROBLEMS Stated Complaint: PAIN IN UPPER CHEST BY LUNGS Nursing Triage Summary: patient states she has had left side pain in her ribs with taking a deep breath or when palpating area. pain is severe. patient blood pressure is elevated. patient relates she does have a hx of htn "and I wont take anything for it either. I take 3 pills a day and if they want me on anything else they will take a pill away from me. I will not go to a pill pusher." History of Present Illness The patient is a 71 year old white female who presents to the Emergency Room with complaints of mid and upper back pain that started around 2 AM. She has had a nonproductive cough for the last few days. She denies any nausea, vomiting, diarrhea, fevers, chills, or sweats. No rhinorrhea or ear pain. Pain is worse to palpation. It is right and left. She denies any rash. She states she had similar discomfort in the past when she had pneumonia. She thinks she has pneumonia again. No shortness of breath. No treatment yet. She has a known history of hypertension and does not take anything for it. She refuses to take more than 3 pills for her ailments. She states she has a history of 3 different cancers, melanoma, skin cancer, and breast cancer. She states she gets a CT scan through oncology roughly every month and a half. Review of Systems REVIEW OF SYSTEM: HEENT: No dizziness, visual problems, hearing loss, or tinnitus. There is no difficulty swallowing and no oral lesions are present. LYMPH: No adenopathy. PULMONARY: No cough, shortness of breath, sputum production or hemoptysis. CARDIOVASCULAR: No chest pain, palpitations, shortness of breath or peripheral edema. GASTROINTESTINAL: No diarrhea, constipation, nausea, vomiting, or abdominal pain. GENITOURINARY: No dysuria, frequency, urgency or nocturia. NEUROLOGIC: No weakness, muscle tenderness, epilepsy or history of neurological problems. No history of chronic headaches. MUSCULOSKELETAL: No history of joint tenderness/swelling. Positive history of arthritis and arthralgias. SKIN: Positive history of skin cancer. PSYCHIATRIC: No history of depression or mental illness. ENDOCRINE: No history of thyroid disorders, or abnormal hair growth. History of diabetes. Past Medical/Surgical History Medical Problems: (1) Asthma, Unspecified (2) Cholecystectomy (3) Chronic Liver Dis Nec (4) Chronic obstructive lung disease (5) Chronic osteoarthritis (6) Diverticulosis Colon (W/O Ment Of Hemorrhage) (7) History of bilateral mastectomy (8) Hypertension Nos (9) Osteoporosis (10) Pneumonia, Organism Nos (11) Replacement of total knee joint Family History Cancer Diabetes mellitus Hypertension Lung disease Social History Smoking Status: Former Smoker Smokeless Tobacco Use: No Alcohol Use: none Drug Use: none Marital Status: single Housing Status: lives alone Occupation Status: employed Current/Historical Medications Scheduled Azithromycin (Zithromax), 250 MG PO DAILY Metformin HCl (Metformin HCl), 250 MG PO BID Methenamine Mandelate (Methenamine Mandelate), 1 GM PO HS Oxybutynin Chloride (Oxybutynin Chloride ER), 10 MG PO DAILY @ NOON Scheduled PRN Oxycodone/Acetaminophen 5MG/325MG (Percocet 5MG/325MG), 1 TABLET PO Q8 PRN for Pain Physical Exam Vital Signs Date Time Temp Pulse Resp B/P (MAP) Pulse Ox O2 Delivery O2 Flow Rate FiO2 10/24/17 12:31 83 16 195/100 95 Room Air 10/24/17 10:38 92 18 216/132 95 Room Air 10/24/17 10:35 91 Room Air 10/24/17 10:29 87 10/24/17 10:08 37.2 95 18 189/112 94 Room Air Physical Exam Gen.: Well-developed, well-nourished, white female, in no acute distress. Laying on a bed. Alert and oriented. Skin:Warm and dry with good turgor. No rashes or lesions. No ecchymosis or erythema. The patient is not diaphoretic. No abrasions. HEENT: Normocephalic atraumatic. Eyes PERRLA, EOMI. No conjunctiva or scleral injection. Ears TMs intact bilaterally with good light reflexes. No erythema or bulging. No hemotympanum. Canals are patent. Nares patent bilaterally without turbinate enlargement. No significant drainage. No epistaxis. Oropharynx without erythema or exudate. Uvula midline, oral mucosa moist. No lesions present. Lymphatics are palpated without anterior or posterior chain enlargement or tenderness. Heart: Heart RRR. No MGR. Peripheral pulses are 2+. Lungs: Lungs have left-sided basilar crackles. No rhonchi or wheezing. Good air movement. The patient is able to take a deep breath. This does increase her back pain. Abdomen: Obese. Abdomen was inspected, auscultated, and palpated. Bowel sounds present x 4. Hyperactive. Soft, nontender to palpation. No hepato- splenomegaly. No masses noted. No rebound. No CVA tenderness. Musculoskeletal: Patient has no discomfort with palpation over her thoracic spine. She does have baseline lumbar discomfort. She has focal discomfort with palpation over the right and left ribs posteriorly the wraps around to the midaxillary line bilaterally. This is at the T6 through T8 level. No palpable crepitus. Medical Decision & Procedures ER Provider Diagnostic Interpretation: Radiographic imaging obtained today of the chest was reviewed by me and read by radiology. No evidence for pneumonia. Laboratory Results 10/24/17 10:30 Red Blood Count 4.75, Mean Corpuscular Volume 91.6, Mean Corpuscular Hemoglobin 30.7, Mean Corpuscular Hemoglobin Concent 33.6, Mean Platelet Volume 11.9, Neutrophils (%) (Auto) 63.5, Lymphocytes (%) (Auto) 27.4, Monocytes (%) (Auto) 7.3, Eosinophils (%) (Auto) 1.3, Basophils (%) (Auto) 0.2, Neutrophils # (Auto) 7.09, Lymphocytes # (Auto) 3.06, Monocytes # (Auto) 0.82, Eosinophils # (Auto) 0.15, Basophils # (Auto) 0.02 10/24/17 10:30 Test 10/24/17 10:30 White Blood Count 11.17 K/uL (4.8-10.8) Red Blood Count 4.75 M/uL (4.2-5.4) Hemoglobin 14.6 g/dL (12.0-16.0) Hematocrit 43.5 % (37-47) Mean Corpuscular Volume 91.6 fL (80-100) Mean Corpuscular Hemoglobin 30.7 pg (25-34) Mean Corpuscular Hemoglobin Concent 33.6 g/dl (32-36) Platelet Count 232 K/uL (130-400) Mean Platelet Volume 11.9 fL (7.4-10.4) Neutrophils (%) (Auto) 63.5 % Lymphocytes (%) (Auto) 27.4 % Monocytes (%) (Auto) 7.3 % Eosinophils (%) (Auto) 1.3 % Basophils (%) (Auto) 0.2 % Neutrophils # (Auto) 7.09 K/uL (1.4-6.5) Lymphocytes # (Auto) 3.06 K/uL (1.2-3.4) Monocytes # (Auto) 0.82 K/uL (0.11-0.59) Eosinophils # (Auto) 0.15 K/uL (0-0.5) Basophils # (Auto) 0.02 K/uL (0-0.2) RDW Standard Deviation 44.4 fL (36.4-46.3) RDW Coefficient of Variation 13.4 % (11.5-14.5) Immature Granulocyte % (Auto) 0.3 % Immature Granulocyte # (Auto) 0.03 K/uL (0.00-0.02) Anion Gap 4.0 mmol/L (3-11) Est Creatinine Clear Calc Drug Dose 61.1 ml/min Estimated GFR () 88.8 Estimated GFR (Non- 76.6 BUN/Creatinine Ratio 14.1 (10-20) Calcium Level 9.1 mg/dl (8.5-10.1) Total Bilirubin 0.5 mg/dl (0.2-1) Aspartate Amino Transf (AST/SGOT) 25 U/L (15-37) Alanine Aminotransferase (ALT/SGPT) 28 U/L (12-78) Alkaline Phosphatase 81 U/L (45-117) Total Creatine Kinase 53 U/L (26-192) Creatine Kinase MB 1.3 ng/ml (0.5-3.6) Creatine Kinase MB Ratio 2.5 (0-3.0) Troponin I < 0.015 ng/ml (0-0.045) Pro-B-Type Natriuretic Peptide 149 pg/ml (0-900) Total Protein 7.4 gm/dl (6.4-8.2) Albumin 3.4 gm/dl (3.4-5.0) Globulin 4.0 gm/dl (2.5-4.0) Albumin/Globulin Ratio 0.9 (0.9-2) Beta-Hydroxybutyric Acid 1.09 mg/dL (0.2-2.81) CBC, chem panel, CK/CK-MB, troponin, and BMP were obtained. Mild elevation in white count at 11.1. Elevated glucose at 308. No other abnormalities. Cardiac enzymes are unremarkable. Medications Administered Medications (Trade) Dose Ordered Sig/Nolan Route Start Time Stop Time Status Last Admin Dose Admin Azithromycin (Zithromax Tab) 500 mg NOW STAT PO 10/24/17 13:04 10/24/17 13:06 DC 10/24/17 13:13 500 MG ED Course Patient was educated regarding today's findings. Conservative care measures were discussed. She was reassured that I do not suspect pneumonia. Possibility of early shingles was discussed, though I think this is unlikely given her bilateral presentation. Possibility of thoracic radiculopathy was also discussed. I do not suspect rib fracture. She does lift her elderly dog frequently throughout the day, and may have created intercostal strain. Possibility of bronchitis was discussed given her dry cough. She is requesting a prescription for Zithromax given her symptoms. This was provided. Take daily for 5 days. She already has an inhaler at home and may use this as previously instructed. Follow-up with her PCP this week if symptoms persist. Return to the ED for any acute worsening of symptoms. Patient was seen in conjunction with Dr. Schwartz, who also evaluated the patient and concurred with today's diagnosis and treatment plan. Medical Decision Possibility of shingles, pneumonia, pleurisy, PE, muscle strain, fracture, nerve root impingement, radiculopathy, and cardiac source were considered. [place] Drug Monitoring Program Search Results: no issues identified Medication Reconcilliation Current Medication List: was personally reviewed by me Blood Pressure Screening Patient's blood pressure: Elevated blood pressure Blood pressure disposition: Did not require urgent referral (this is her baseline and she is aware.) Impression Primary Impression: Acute thoracic back pain Departure Information Dispostion Home / Self-Care Condition FAIR Prescriptions Azithromycin (ZITHROMAX) 250 Mg Tab 250 MG PO DAILY, #4 TAB Prov: Ananth Schwartz MD 10/24/17 Forms WORK / SCHOOL INSTRUCTIONS, HOME CARE DOCUMENTATION FORM, MOTRIN USE, TYLENOL USE, IMPORTANT VISIT INFORMATION Patient Instructions My [employer] Additional Instructions Tylenol and Motrin every 6 hours as needed for mild discomfort Gentle stretching daily Follow-up with your PCP this week for reexamination Return to the ED for any acute worsening of symptoms Obtain reevaluation if you should develop a rash Problem Qualifiers Primary Impression: Acute thoracic back pain Back pain laterality: bilateral Qualified Codes: M54.6 - Pain in thoracic spine
[2017-10-27] MEDS ORDERED: OXYC-57 PO ×2 (07:38→18:00)
[2017-10-27] MEDS ORDERED: METH1TAB3 PO (10:49)
[2017-10-27] MEDS ORDERED: DTRSR/10 PO (11:43)
== END 2017-10-24 13:17 | disposition home or self-care (01) ==
LOC: C.EDB 10:06 → C.EDA 13:17
DX: M54.6 Pain in thoracic spine (principal); R05 Cough; I10 Essential (primary) hypertension; K76.9 Liver disease, unspecified; J44.9 Chronic obstructive pulmonary disease, unspecified; M19.90 Unspecified osteoarthritis, unspecified site; K57.32 Diverticulitis of large intestine without perforation or abscess without bleeding; M81.0 Age-related osteoporosis without current pathological fracture; Z79.84 Long term (current) use of oral hypoglycemic drugs; Z87.891 Personal history of nicotine dependence; Z85.3 Personal history of malignant neoplasm of breast; Z85.820 Personal history of malignant melanoma of skin; Z90.13 Acquired absence of bilateral breasts and nipples; Z80.9 Family history of malignant neoplasm, unspecified; Z83.3 Family history of diabetes mellitus; Z82.49 Family history of ischemic heart disease and other diseases of the circulatory system

== ENCOUNTER 2017-10-26 10:12 | Emergency (ER) | payer OTHER ==
[~2017-10-26] VITALS: Ht 149.9 cm; Wt 87.6 kg
[~2017-10-26 10:12] MED LIST changes: +AZIT-60 PO; -DTRSR/10 PO; -GLC500 PO; -METH1TAB3 PO
[2017-10-26 10:21] VITALS: Ht 149.9 cm; Wt 87.6 kg
[2017-10-26] MEDS ORDERED: MoRPHine SULFATE 10 MG/ML CARP/VIAL ONE (10:21)
[2017-10-26] MEDS ORDERED: ONDANSETRON INJ 2 MG/ML 2 ML VIAL ONE (10:21)
[2017-10-26] MEDS ORDERED: SODIUM CHLORIDE 0.9% 500ML 500 ML IV STA (10:50)
[2017-10-26] MEDS ORDERED: ALBUT/IPRATROP 3MG/0.5MG NEB 3 ML VIAL INH STA (10:50)
--- NOTE | 2017-10-26 10:57 | EMERGENCY ROOM VISIT NOTE ---
History Report prepared by Margaret: Alberto Zamora Under the Supervision of: Dr. Kush Jolly M.D. First contact with patient: 10:43 Chief Complaint: BACK PAIN Stated Complaint: BACK PAIN History of Present Illness The patient is a 71 year old female who presents to the Emergency Room with complaints of back pain that began 1 week ago. Patient was seen in ED 3 days [employer] WORK[employer] for these symptoms as was diagnosed with bronchitis but says pain became worse since then. She states the pain has improved since being given Morphine and oxygen by EMS. Of note, the patient has chronic back pain and takes Oxycodone for pain management. Denies taking extra of her oxycodone. The patient states her pain is similar to her pneumonia that she had 13 years ago. She states that she has an inhaler that she doesn't regularly use. She complains that she has not been able to concentrate during game show programs or playing cards. Pt denies LOC, headache, fevers, chills, diaphoresis, visual changes, neck pain , chest pain, breathing difficulties, cough, congestion, nausea, vomiting, abdominal pain, diarrhea, urinary symptoms, numbness, weakness, rash, or other complaints. Source of History: patient Onset: 1 week ago Position: back Timing: constant Modifying Factors (Relieving): narcotics Associated Symptoms: No cough, No SOB, No vomiting Review of Systems See HPI for pertinent positives and negatives. A total of ten systems were reviewed and were otherwise negative. Past Medical & Surgical Medical Problems: (1) Asthma, Unspecified (2) Cholecystectomy (3) Chronic Liver Dis Nec (4) Chronic obstructive lung disease (5) Chronic osteoarthritis (6) Diverticulosis Colon (W/O Ment Of Hemorrhage) (7) History of bilateral mastectomy (8) Hypertension Nos (9) Osteoporosis (10) Pneumonia, Organism Nos (11) Replacement of total knee joint Family History Cancer Diabetes mellitus Hypertension Lung disease Social History Smoking Status: Former Smoker (Smoked 10 years ago) Alcohol Use: none Drug Use: none Marital Status: single Housing Status: lives alone Occupation Status: employed Current/Historical Medications Scheduled Albuterol Hfa (Ventolin Hfa), 2-4 PUFFS INH Q6H Azithromycin (Zithromax), 250 MG PO DAILY Metformin HCl (Metformin HCl), 250 MG PO BID Methenamine Mandelate (Methenamine Mandelate), 1 GM PO HS Oxybutynin Chloride (Oxybutynin Chloride ER), 10 MG PO DAILY @ NOON Prednisone (Prednisone), 3 TAB PO DAILY Scheduled PRN Oxycodone/Acetaminophen 5MG/325MG (Percocet 5MG/325MG), 1 TABLET PO Q8 PRN for Pain Allergies Coded Allergies: Amoxicillin (Verified Allergy, Unknown, childhood allergy, 10/26/17) Penicillins (Verified Allergy, Unknown, HAPPENED A CHILD, 10/26/17) Physical Exam Vital Signs Date Time Temp Pulse Resp B/P (MAP) Pulse Ox O2 Delivery O2 Flow Rate FiO2 10/26/17 16:49 82 22 98 Room Air 10/26/17 16:15 76 20 170/103 99 Nebulizer 10/26/17 16:11 82 22 91 Room Air 10/26/17 14:31 37.0 83 22 145/81 94 Nasal Cannula 10/26/17 13:23 78 10/26/17 12:34 85 Room Air 10/26/17 12:34 96 Nasal Cannula 3.0 10/26/17 12:06 75 20 155/87 96 Nasal Cannula 3.0 10/26/17 10:49 98 Nasal Cannula 3.0 10/26/17 10:28 92 Nasal Cannula 4.0 10/26/17 10:28 80 Room Air 10/26/17 10:23 77 10/26/17 10:21 37.1 82 22 164/89 80 Room Air Physical Exam GENERAL: Awake, alert, well-appearing, in no distress HENT: Normocephalic, atraumatic. Dry mucous membranes. EYES: Normal conjunctiva. Sclera non-icteric. NECK: Supple. No nuchal rigidity. FROM. No JVD. RESPIRATORY: Diminished breath sounds at bases. Scant scattered wheezes. Otherwise clear. CARDIAC: Regular rate, normal rhythm. Extremities warm and well perfused. Pulses equal. ABDOMEN: Obese abdomen. Soft, non-distended. No tenderness to palpation. No rebound or guarding. No masses. RECTAL: Deferred. MUSCULOSKELETAL: Chest examination reveals no tenderness. The back is symmetrical on inspection without obvious abnormality. There is no CVA tenderness to palpation. No joint edema. LOWER EXTREMITIES: Calves are equal size bilaterally and non-tender. No edema. No discoloration. NEURO: Normal sensorium. No sensory or motor deficits noted. SKIN: No rash or jaundice noted. BACK: No tenderness throughout Medical Decision & Procedures ER Provider Diagnostic Interpretation: Radiology results as stated below per my review and radiologist interpretation: CHEST ONE VIEW PORTABLE HISTORY: Atypical CHEST PAIN COMPARISON: Chest 10/24/2017. FINDINGS: The heart is top normal in size. No focal lung consolidations to suggest pneumonia. No pleural effusions. No pneumothorax. No evidence for pulmonary edema. IMPRESSION: No acute process. Electronically signed by: Shailesh Leblanc M.D. 10/26/2017 11:22 AM Dictated Date/Time: 10/26/2017 11:[address] ANGIOGRAM OF THE CHEST CLINICAL HISTORY: Hypoxia. Back pain. COMPARISON STUDY: Chest CT dated 07/23/2012. Chest x-ray dated 10/26/2017. TECHNIQUE: Following the IV administration of 88 cc of Optiray 320, CT angiogram of the chest was performed from the upper abdomen to the thoracic inlet utilizing the pulmonary embolus protocol. Images are reviewed in the axial, sagittal, and coronal planes. 3-D MIPS images are created and assessed. IV contrast was administered without complication. A dose lowering technique was utilized adhering to the principles of ALARA. CT DOSE: 443.61 mGycm FINDINGS: Thyroid: Imaged portions of the thyroid gland are normal in size and attenuation. Thoracic aorta: There is mild atherosclerotic calcification of the thoracic aorta, which is normal in caliber and demonstrates standard 3-vessel arch anatomy. No dissection is seen. Pulmonary vasculature: The pulmonary trunk is normal in caliber. There are no filling defects identified in main, lobar, or segmental pulmonary branches to suggest pulmonary embolus. Heart: The heart is top normal in size and without pericardial effusion. There are coronary artery calcifications. Lungs and pleural spaces: The lungs and pleural spaces are clear noting bibasilar atelectasis. The trachea and central airways are patent. Mediastinum: There is no mediastinal lymphadenopathy. Linda: Clear. Axillae: There is no axillary lymphadenopathy. Upper abdomen: There is a tiny hiatal hernia. Hepatic steatosis is suspected. Skeletal structures: The skeletal structures are osteopenic. Degenerative change is noted in the thoracic spine. No lytic or blastic bony lesions are seen. Soft tissues: There is evidence of bilateral mastectomy. Laboratory Results 10/26/17 11:10 Red Blood Count 4.49, Mean Corpuscular Volume 91.3, Mean Corpuscular Hemoglobin 30.1, Mean Corpuscular Hemoglobin Concent 32.9, Mean Platelet Volume 11.2, Neutrophils (%) (Auto) 59.5, Lymphocytes (%) (Auto) 31.3, Monocytes (%) (Auto) 7.4, Eosinophils (%) (Auto) 1.5, Basophils (%) (Auto) 0.1, Neutrophils # (Auto) 5.74, Lymphocytes # (Auto) 3.01, Monocytes # (Auto) 0.71, Eosinophils # (Auto) 0.14, Basophils # (Auto) 0.01 10/26/17 11:10 Test 10/26/17 11:06 10/26/17 11:10 Influenza Type A Antigen Neg for Influ A (NEG) Influenza Type B Antigen Neg for Influ B (NEG) White Blood Count 9.63 K/uL (4.8-10.8) Red Blood Count 4.49 M/uL (4.2-5.4) Hemoglobin 13.5 g/dL (12.0-16.0) Hematocrit 41.0 % (37-47) Mean Corpuscular Volume 91.3 fL (80-100) Mean Corpuscular Hemoglobin 30.1 pg (25-34) Mean Corpuscular Hemoglobin Concent 32.9 g/dl (32-36) Platelet Count 208 K/uL (130-400) Mean Platelet Volume 11.2 fL (7.4-10.4) Neutrophils (%) (Auto) 59.5 % Lymphocytes (%) (Auto) 31.3 % Monocytes (%) (Auto) 7.4 % Eosinophils (%) (Auto) 1.5 % Basophils (%) (Auto) 0.1 % Neutrophils # (Auto) 5.74 K/uL (1.4-6.5) Lymphocytes # (Auto) 3.01 K/uL (1.2-3.4) Monocytes # (Auto) 0.71 K/uL (0.11-0.59) Eosinophils # (Auto) 0.14 K/uL (0-0.5) Basophils # (Auto) 0.01 K/uL (0-0.2) RDW Standard Deviation 44.5 fL (36.4-46.3) RDW Coefficient of Variation 13.5 % (11.5-14.5) Immature Granulocyte % (Auto) 0.2 % Immature Granulocyte # (Auto) 0.02 K/uL (0.00-0.02) Anion Gap 3.0 mmol/L (3-11) Est Creatinine Clear Calc Drug Dose 67.0 ml/min Estimated GFR () 96.3 Estimated GFR (Non- 83.1 BUN/Creatinine Ratio 17.9 (10-20) Calcium Level 9.0 mg/dl (8.5-10.1) Total Bilirubin 0.4 mg/dl (0.2-1) Direct Bilirubin < 0.1 mg/dl (0-0.2) Aspartate Amino Transf (AST/SGOT) 12 U/L (15-37) Alanine Aminotransferase (ALT/SGPT) 20 U/L (12-78) Alkaline Phosphatase 69 U/L (45-117) Troponin I < 0.015 ng/ml (0-0.045) Total Protein 6.8 gm/dl (6.4-8.2) Albumin 3.0 gm/dl (3.4-5.0) Lipase 87 U/L (73-393) Beta-Hydroxybutyric Acid 0.92 mg/dL (0.2-2.81) Laboratory results reviewed by me Medications Administered Medications (Trade) Dose Ordered Sig/Nolan Route Start Time Stop Time Status Last Admin Dose Admin Albuterol/ Ipratropium (Duoneb) 3 ml NOW STAT INH 10/26/17 10:50 10/26/17 10:56 DC 10/26/17 11:04 3 ML Sodium Chloride 500 ml @ 999 mls/hr Q31M STAT IV 10/26/17 10:50 10/26/17 11:20 DC 10/26/17 11:04 999 MLS/HR Prednisone (PredniSONE TAB) 60 mg NOW STAT PO 10/26/17 15:47 10/26/17 15:48 DC 10/26/17 16:14 60 MG Albuterol/ Ipratropium (Duoneb) 12 ml ONE ONCE INH 10/26/17 16:00 10/26/17 16:01 DC 10/26/17 16:09 12 ML Azithromycin (Zithromax Tab) 500 mg NOW STAT PO 10/26/17 17:05 10/26/17 17:09 DC 10/26/17 17:15 500 MG ED Course 1043: The patient was evaluated in room C10. A complete history and physical exam was performed. 1700: I checked on the patient and she doing better. Her oxygen saturation was reassessed at 98% and had been requiring oxygen throughout her stay. I explained the risk of leaving AMA. 1710: I reevaluated the patient. Discussed results and discharge instructions: She verbalized understanding and agreement. The patient is ready for discharge. Medical Decision I reviewed the patient's past medical history, medications, and the nursing notes as described above. The patient's presentation and history were concerning for pna, bronchitis, ACS , CHF, PE, influenza/viral syndrome, muscular strain, dissection, TAA among others. The patient is a 71 y/o woman with a pmhx of melanoma and breast cancer remotely who presents to the emergency department with mid back pain that worsening over the past couple of days in the setting of 1 week of sx and seen in ED 3 days [employer] for the same and diagnosed with bronchitis per HPI. On arrival the patient is well-appearing in NAD. AFVSS however does have a new oxygen requirement. Per EMS report patient was 80% on RA in the field. Patient was given morphine by EMS and back pain has resolved upon arrival. Labs unremarkable including wbc and troponin wnl. EKG non-ischemic. CXR unremarkable. CT-PE negative for PNA or PE. Patient given neb and steroids with improved to O2 Sat to low 90s when resting however for the majority of patient' s observation in ED was requiring 2-4L NC. Patient reports remote history of smoking and requiring inhalers but denies needing them recently. Given patient' s recent bronchitis diagnosis, likely uncovering underlying lung disease. Of note, patient was given Azithromycin on her last visit but was not aware that a prescription was sent to her pharmacy to continue a 5 day course. Given the patient's presumed new hypoxia I recommend admission to the patient however she was adamant that she would not stay as she has a dog at home to take care of. Patient expressed understanding of risk and was d/c'd ama per d/c instructions. Plan for azithro, prednisone, albuterol and pcp f/u. Medication Reconcilliation Current Medication List: was personally reviewed by me Blood Pressure Screening Patient's blood pressure: Elevated blood pressure Blood pressure disposition: Elevated BP felt to be situational Impression Primary Impression: Bronchitis Scribe Attestation The scribe's documentation has been prepared under my direction and personally reviewed by me in its entirety. I confirm that the note above accurately reflects all work, treatment, procedures, and medical decision making performed by me. Departure Information Dispostion Against Medical Advice Prescriptions Albuterol Hfa (VENTOLIN HFA) 200 Puffs/15323 Mcg Aers 2-4 PUFFS INH Q6H, #1 INHALER Prov: Kush Jolly M.D. 10/26/17 Prednisone (Prednisone) 20 Mg Tab 3 TAB PO DAILY for 4 Days, #12 TAB FOR 4 DAYS Prov: Kush Jolly M.D. 10/26/17 Referrals Yuri Fregoso MD (PCP) Patient Instructions ED [place] Form- 1, ED Bronchitis Asthmatic, My [facility] Additional Instructions Please follow up with your primary care physician in the next 1-3 days for re- evaluation. You likely have a bronchitis. Your oxygen level was low throughout your ED evaluation. However, you did not want to be admitted and preferred to be discharged AGAINST MEDICAL ADVICE. Please note, by leaving AGAINST MEDICAL ADVICE you risk a worse condition, disability, and . However, we're open 24 hours a day and 7 days a week if you were to change your mind or have any worsening symptoms and should not hesitate to return. Prednisone as directed. Continue your azithromycin (your prescription is still waiting for you at your pharmacy from your last visit). Use your albuterol inhaler 2 puffs every 4 hours for the next 48 hours and then as needed thereafter. Return to the emergency department for worsening symptoms as described in the accompanying instructions.
[2017-10-26] MEDS ORDERED: OPTIRAY 320 IV PRN (11:15)
--- NOTE | 2017-10-26 11:23 | DIAGNOSTIC IMAGING REPORT ---
CHEST ONE VIEW PORTABLE HISTORY: Atypical CHEST PAIN COMPARISON: Chest 10/24/2017. FINDINGS: The heart is top normal in size. No focal lung consolidations to suggest pneumonia. No pleural effusions. No pneumothorax. No evidence for pulmonary edema. IMPRESSION: No acute process. Electronically signed by: Shailesh Leblanc M.D. 10/26/2017 11:22 AM Dictated Date/Time: 10/26/2017 11:21 AM
[2017-10-26 11:31] LABS: BASO % 0.1 %; BASO ABS # 0.01 K/uL (0-0.2); EOS % 1.5 %; EOS ABS # 0.14 K/uL (0-0.5); HEMOGLOBIN 13.5 g/dL (12.0-16.0); IG# 0.02 K/uL (0.00-0.02); LYMPH % 31.3 %; LYMPH ABS # 3.01 K/uL (1.2-3.4); MEAN CELL VOLUME 91.3 fL (80-100); MEAN CORPUSCULAR HEMOGLOBIN 30.1 pg (25-34); MEAN CORPUSCULAR HGB CONC 32.9 g/dl (32-36); MEAN PLATELET VOLUME 11.2 fL (7.4-10.4); MONO % 7.4 %; MONO ABS # 0.71 K/uL (0.11-0.59); NEUT % 59.5 %; NEUT ABS # 5.74 K/uL (1.4-6.5); PLATELET COUNT 208 K/uL (130-400); RED CELL DISTRIBUTION WIDTH CV 13.5 % (11.5-14.5); RED CELL DISTRIBUTION WIDTH SD 44.5 fL (36.4-46.3); WHITE BLOOD COUNT 9.63 K/uL (4.8-10.8)
[2017-10-26 11:44] LABS: INFLUENZA B ANTIGEN Neg for Influ B (NEG)
[2017-10-26 12:11] LABS: ALT/SGPT 20 U/L (12-78); AST/SGOT 12 U/L (15-37); BLOOD UREA NITROGEN 13 mg/dl (7-18); CARBON DIOXIDE 32 mmol/L (21-32); CREATININE 0.72 mg/dl (0.60-1.20); GLUCOSE 303 mg/dl (70-99); LIPASE 87 U/L (73-393); POTASSIUM 4.8 mmol/L (3.5-5.1); SODIUM 136 mmol/L (136-145)
[2017-10-26 12:19] LABS: ALKALINE PHOSPHATASE 69 U/L (45-117); TOTAL PROTEIN 6.8 gm/dl (6.4-8.2)
[2017-10-26 12:34] VITALS: O2SAT 96
--- NOTE | 2017-10-26 13:11 | DIAGNOSTIC IMAGING REPORT ---
CT ANGIOGRAM OF THE CHEST CLINICAL HISTORY: Hypoxia. Back pain. COMPARISON STUDY: Chest CT dated 07/23/2012. Chest x-ray dated 10/26/2017. TECHNIQUE: Following the IV administration of 88 cc of Optiray 320, CT angiogram of the chest was performed from the upper abdomen to the thoracic inlet utilizing the pulmonary embolus protocol. Images are reviewed in the axial, sagittal, and coronal planes. 3-D MIPS images are created and assessed. IV contrast was administered without complication. A dose lowering technique was utilized adhering to the principles of ALARA. CT DOSE: 443.61 mGycm FINDINGS: Thyroid: Imaged portions of the thyroid gland are normal in size and attenuation. Thoracic aorta: There is mild atherosclerotic calcification of the thoracic aorta, which is normal in caliber and demonstrates standard 3-vessel arch anatomy. No dissection is seen. Pulmonary vasculature: The pulmonary trunk is normal in caliber. There are no filling defects identified in main, lobar, or segmental pulmonary branches to suggest pulmonary embolus. Heart: The heart is top normal in size and without pericardial effusion. There are coronary artery calcifications. Lungs and pleural spaces: The lungs and pleural spaces are clear noting bibasilar atelectasis. The trachea and central airways are patent. Mediastinum: There is no mediastinal lymphadenopathy. Linda: Clear. Axillae: There is no axillary lymphadenopathy. Upper abdomen: There is a tiny hiatal hernia. Hepatic steatosis is suspected. Skeletal structures: The skeletal structures are osteopenic. Degenerative change is noted in the thoracic spine. No lytic or blastic bony lesions are seen. Soft tissues: There is evidence of bilateral mastectomy. IMPRESSION: 1. There is no evidence of pulmonary embolus in the main, lobar, or segmental pulmonary arteries. 2. There is no airspace consolidation or pleural effusion. Electronically signed by: Ponce Scott M.D. 10/26/2017 1:10 PM Dictated Date/Time: 10/26/2017 1:07 PM
[2017-10-26 14:31] VITALS: TEMP 37
[2017-10-26] MEDS ORDERED: ALBUT/IPRATROP 3MG/0.5MG NEB 3 ML VIAL INH ONE (16:00)
[2017-10-26 16:11] VITALS: PULSE 82; O2SAT 91
[2017-10-26 16:15] VITALS: BP 170/103
[2017-10-26 16:49] VITALS: PULSE 82; O2SAT 98
[2017-10-26] MEDS ORDERED: PRED20TA PO (16:56)
[2017-10-26] MEDS ORDERED: VNTHFA/IN INH (16:56)
[2017-10-26] MEDS ORDERED: AZITHROMYCIN 250 MG TAB PO STA (17:05)
[2017-10-27] MEDS ORDERED: OXYC-57 PO ×2 (07:38→18:00)
[2017-10-27] MEDS ORDERED: METH1TAB3 PO (10:49)
[2017-10-27] MEDS ORDERED: DTRSR/10 PO (11:43)
[2017-10-27] MEDS ORDERED: GLC500 PO (20:58)
== END 2017-10-26 17:16 | disposition left against medical advice (07) ==
LOC: EDBD 10:12 → C.EDC 10:13
DX: J40 Bronchitis, not specified as acute or chronic (principal); G89.29 Other chronic pain; M54.9 Dorsalgia, unspecified; Z90.49 Acquired absence of other specified parts of digestive tract; K76.9 Liver disease, unspecified; J44.9 Chronic obstructive pulmonary disease, unspecified; M19.90 Unspecified osteoarthritis, unspecified site; Z90.13 Acquired absence of bilateral breasts and nipples; I10 Essential (primary) hypertension; M81.0 Age-related osteoporosis without current pathological fracture; Z87.01 Personal history of pneumonia (recurrent); Z96.659 Presence of unspecified artificial knee joint; Z80.9 Family history of malignant neoplasm, unspecified; Z83.3 Family history of diabetes mellitus; Z82.49 Family history of ischemic heart disease and other diseases of the circulatory system; Z87.891 Personal history of nicotine dependence; Z79.899 Other long term (current) drug therapy

== ENCOUNTER 2017-10-27 15:28 | Emergency (ER) | payer OTHER ==
[~2017-10-27] VITALS: Ht 147.3 cm; Wt 88.3 kg
[~2017-10-27 15:28] MED LIST changes: +DTRSR/10 PO; +METH1TAB3 PO; +OXYC-57 PO; +PRED20TA PO; +VNTHFA/IN INH
[2017-10-27 15:45] VITALS: TEMP 36.8; Ht 147.3 cm; Wt 88.3 kg
--- NOTE | 2017-10-27 17:07 | DIAGNOSTIC IMAGING REPORT ---
THORACIC SPINE 3 VIEWS CLINICAL HISTORY: Midthoracic back pain. FINDINGS: AP, lateral, and swimmer's views of the thoracic spine are compared to study dated 03/06/2017 and correlated with chest CT dated 10/26/2017. The skeletal structures are osteopenic. There is no radiographic evidence of fracture or malalignment involving the thoracic spine. Vertebral body height and alignment are maintained. Mild kyphoscoliosis is observed. Small anterior osteophytes are seen throughout. The transverse processes and pedicles are grossly intact as seen on the frontal view. Mild multilevel degenerative disc space narrowing is observed. The heart appears enlarged and there is atherosclerotic calcification of the thoracic and. The lung parenchyma is grossly clear as imaged. IMPRESSION: 1. No acute bony abnormality is identified involving the thoracic spine. 2. Osteopenia and degenerative change as above. Electronically signed by: Ponce Scott M.D. 10/27/2017 5:06 PM Dictated Date/Time: 10/27/2017 5:04 PM
--- NOTE | 2017-10-27 17:45 | EMERGENCY ROOM VISIT NOTE ---
ED Visit Note First contact with patient: 17:40 I have seen and examined this patient with Aryan Munoz and generally agree with the treatment plan as discussed. Problem List Medical Problems: (1) Asthma, Unspecified Status: Chronic (2) Cholecystectomy Status: Resolved (3) Chronic Liver Dis Nec Status: Chronic (4) Chronic obstructive lung disease Status: Chronic (5) Chronic osteoarthritis Status: Chronic (6) Diverticulosis Colon (W/O Ment Of Hemorrhage) Status: Chronic (7) History of bilateral mastectomy Status: Resolved (8) Hypertension Nos Status: Chronic (9) Osteoporosis Status: Chronic (10) Pneumonia, Organism Nos Status: Resolved (11) Replacement of total knee joint Status: Resolved Current/Historical Medications Scheduled Albuterol Hfa (Ventolin Hfa), 2-4 PUFFS INH Q6H Metformin HCl (Metformin HCl), 500 MG PO HOLD Methenamine Mandelate (Methenamine Mandelate), 1 GM PO HS Oxybutynin Chloride (Oxybutynin Chloride ER), 10 MG PO QD@1200 Prednisone (Prednisone), 3 TAB PO DAILY Scheduled PRN Oxycodone/Acetaminophen 5MG/325MG (Percocet 5MG/325MG), 1 TABLET PO Q8 PRN for Pain Allergies Coded Allergies: Amoxicillin (Verified Allergy, Unknown, childhood allergy, 10/26/17) Penicillins (Verified Allergy, Unknown, HAPPENED A CHILD, 10/26/17) Vital Signs Date Time Temp Pulse Resp B/P (MAP) Pulse Ox O2 Delivery O2 Flow Rate FiO2 10/27/17 15:45 36.8 89 18 146/76 92 Room Air Departure Information Impression Primary Impression: Thoracic back pain Dispostion Home / Self-Care Forms HOME CARE DOCUMENTATION FORM, IMPORTANT VISIT INFORMATION Patient Instructions [facility]
[2017-10-27] MEDS ORDERED: OXYC-57 PO (18:00)
[2017-10-27] MEDS ORDERED: MoRPHine SULFATE 10 MG/ML CARP/VIAL IM STA (18:06)
[2017-10-27 18:09] VITALS: BP 158/84; PULSE 81; O2SAT 92
[2017-10-27] MEDS ORDERED: GLC500 PO (20:58)
--- NOTE | 2017-10-28 20:15 | EMERGENCY ROOM VISIT NOTE ---
ED Visit Note First contact with patient: 15:49 Chief Complaint: Severe back pain. History of Present Illness: Ms. High is a 71-year-old white female who ambulates into the ED with the use of a walker complaining of severe thoracic back pain. According the patient's medical records she has had chronic thoracic back pain for many years. This is currently her third visit into the ED for the last 3 days. During her initial visits multiple tests were performed and found to be negative. On her second visit a further extensive evaluation was performed including a CT angioma of the chest to evaluate for possible dissection was performed and was negative. It should be noted during this visit she did have at least one documented episode of hypoxia. She was offered admission and refused and she left AMA. Currently patient is complaining of lower thoracic back pain in the area of T8 through T11. The pain is located centrally over the bony processes of the spine. She does have minimal radiation into the bilateral paraspinous muscles. She describes her pain as a constant deep achy sensation that becomes intermittently sharp and cramping. She rates her discomfort 9/10. Her pain is nonradiating. Her pain worsens with all movement of the back and lifting. She has not identified any alleviating factors related to the pain. She had a previous prescription of Percocet from a surgery in 2017; she reports she uses this medication and only had minimal relief of her discomfort. She denies recent trauma, repetitive trauma, fevers, chills, sweats, skin eruptions, skin color changes, upper respiratory tract symptoms, cough, wheezing , shortness of breath, chest pain, palpitations, orthopnea, dependent edema, previous clots, claudication, cramping, recent surgery/inactivity/extended travel, genital paresthesias, bowel and bladder dysfunction, extremity weakness/ numbness/tingling. Review of Systems: As noted above in history of present illness. All body systems were reviewed and found to be negative as noted above. Past Medical History: As noted above and (1) Asthma, Unspecified (2) Cholecystectomy (3) Chronic Liver Dis Nec (4) Chronic obstructive lung disease (5) Chronic osteoarthritis (6) Diverticulosis Colon (W/O Ment Of Hemorrhage) (7) History of bilateral mastectomy (8) Hypertension Nos (9) Osteoporosis (10) Pneumonia, Organism Nos (11) Replacement of total knee joint Current Medications: Medications Dose Route/Sig Max Daily Dose Days Date Category Dose Instructions Ventolin Hfa (Albuterol) 200 Puffs/68499 Mcg Aers 2-4 Puffs INH Q6H 10/26/17 Rx Prednisone 20 Mg Tab 3 Tab PO DAILY 4 10/26/17 Rx FOR 4 DAYS Metformin HCl 500 Mg Tab 500 Mg PO HOLD 12/24/16 Reported MEDICATION CURRENTLY BEING HELD UNTIL OTHERWISE DIRECTED TO TAKE BY Methenamine Mandelate 1 Gm Tab 1 Gm PO HS 03/07/16 Reported Oxybutynin Chloride ER (Oxybutynin Chloride) 10 Mg Tabcr 10 Mg PO QD@1200 01/25/16 Reported Allergies to Medications: Penicillin. Social History: Patient is not employed; she feels safe in her home environment ; she denies tobacco and alcohol use. Physical Examination: Vital Signs: Date Time Temp Pulse Resp B/P (MAP) Pulse Ox O2 Delivery O2 Flow Rate FiO2 10/27/17 18:09 81 20 158/84 92 Room Air 10/27/17 15:45 36.8 89 18 146/76 92 Room Air GENERAL: 71-year-old female in mild to moderate distress due to pain, nontoxic- appearing, afebrile and hemodynamically stable. NEUROLOGICAL: Awake, alert and oriented to person, place and time. Answering questions appropriately and following commands. Assisted normal gait. Good hand eye coordination. No focal motor sensory deficits. SKIN: Warm, dry and pink. No soft tissue eruptions or trauma noted. HEENT: Atraumatic and normocephalic. BACK: No tenderness over the cervical and lumbar bony spines. Moderate tenderness over the lower thoracic bony spine without bony deformity, bony crepitus, swelling, no ecchymosis or step-offs. Minimal tenderness over the localized paraspinous muscles without palpable spasm. No CVA tenderness. Negative straight leg raise test. THORAX: Lungs sounds are clear to auscultation and equal bilaterally with symmetrical chest wall. No wheezing, rales or rhonchi. HEART: Regular rate and rhythm. No gallops, rubs or murmurs are appreciated. ABDOMEN: Flat, soft and nontender. Positive bowel sounds in all quadrants. No guarding, rigidity or organomegaly. EXTREMITIES: Moves all extremities well on command and with purpose. All distal neurovascular statuses are intact and equal bilaterally. 4/5 muscle strength in all movements of the hips, knees and ankle. Able to distinguish light sensations through all dermatomes of the legs and feet. Difficult to elicit patient's deep tendon reflexes. ED Course: Patient is assessed as noted above. Patient's medication list was reviewed. Thoracic Spine X-Rays: Was read by myself and the radiologist showing no acute fractures or subluxations. Mild kyphosis was noted. Mild multilevel degenerative disc narrowing was noted. Radiologist reports small anterior osteophytes are seen throughout. Lungs shows no acute infiltrates, effusions or pneumothorax. Radiologist also notes that there was enlargement of the heart and atherosclerotic calcification of the thoracic aorta. Urine Dip: Was negative for protein, ketones, blood, nitrates and white blood cell counts. Urine was positive for glucose; patient is a diabetic and because of her recent contrast CT her Glucophage was held until tomorrow. Patient was reassessed multiple times during her stay in the emergency department. Patient did request an injection of pain medication prior to discharge; she was given 6 mg of morphine IM. Patient's case was reviewed with Dr. Schwartz; independently assessed the patient we agreed on diagnostic approach, treatment, disposition and plan. Patient was educated about today's findings and instructed on her treatment plan ; she verbalized understanding and agreement with this plan. Clinical Impression: Acute on chronic thoracic back pain. Decision-Making: Initially my differential diagnosis I considered pyelonephritis , musculoskeletal pain, thoracic aneurysm, pneumothorax and other causes. Disposition: Patient discharged home in stable condition accompanied by a friend ; prior to departure she was reassessed and subjectively reported she was feeling slightly worse and rated her discomfort 10/10. Patient was offered a observation stay in the hospital but refused because she needed to take care of a dog at home. Plan: Patient was encouraged to continue her medications as prescribed. Patient was prescribed Percocet; one tablet every 8 hours as needed for severe pain or the use of ibuprofen and acetaminophen for mild pain. Patient's name was checked on the state database and no red flags were noted. She was given appropriate narcotic precautions. Patient is encouraged to follow-up with her primary care provider for follow-up care and treatment. Patient was encouraged return ED for worsening/uncontrolled pain, extremity weakness/numbness/tingling, fevers or any new/concerning symptoms.
== END 2017-10-27 18:15 | disposition home or self-care (01) ==
LOC: C.EDB 15:30 → C.EDD 18:15
DX: M54.6 Pain in thoracic spine (principal); G89.29 Other chronic pain; J45.909 Unspecified asthma, uncomplicated; Z90.49 Acquired absence of other specified parts of digestive tract; K76.9 Liver disease, unspecified; J44.9 Chronic obstructive pulmonary disease, unspecified; M19.90 Unspecified osteoarthritis, unspecified site; Z90.13 Acquired absence of bilateral breasts and nipples; I10 Essential (primary) hypertension; M81.0 Age-related osteoporosis without current pathological fracture; Z87.01 Personal history of pneumonia (recurrent); Z96.659 Presence of unspecified artificial knee joint; Z79.899 Other long term (current) drug therapy

== ENCOUNTER → 2017-11-23 | Outpatient (CLI) | payer OTHER ==
[~2017-11-23] MED LIST changes: -AZIT-60 PO; +GLC500 PO; -PRED20TA PO
--- NOTE | 2017-11-26 07:58 | PULMONARY FUNCTION TEST ---
CLINICAL DATA: A 72-year-old female with a height of 58 inches and a weight of 194 pounds, referred for evaluation of hypoxia. Spirometry pre- and post-bronchodilator, lung volumes and DLCO were performed. FINDINGS: Pre-bronchodilator spirometry shows only a very minimal reduction in FEF 25-75 suggesting possible mild small airway obstruction. FVC was 87% of predicted. FEV1 was 82% of predicted. NCE28-34 was 77% of predicted. There was no significant improvement after inhaled bronchodilator. FVC improved 5 percent to 91% of predicted. FEV1 improved 3% to 85% of predicted. Lung volumes did not show any evidence of air trapping. Expiratory reserve volume is reduced due to obesity. DLCO is mildly reduced at 70% of predicted. However, DLCO/VA is normal. IMPRESSION: Possible very mild small airway obstructive disease with reduction in FEF 25-75 with no significant improvement after inhaled bronchodilator. Reduction in expiratory reserve volume due to obesity. Mildly reduced DLCO with a normal DLCO/VA. MTDD
== END | disposition home or self-care (01) ==
LOC: C.RC 13:09
PROVIDERS: ATTEND Internal Medicine
DX: R09.02 Hypoxemia (principal); E66.9 Obesity, unspecified

== ENCOUNTER 2017-12-30 07:56 | Emergency (ER) | payer OTHER ==
[~2017-12-30] VITALS: Ht 147.3 cm; Wt 86.4 kg
[~2017-12-30 07:56] MED LIST changes: -DTRSR/10 PO; -GLC500 PO; -METH1TAB3 PO
[2017-12-30 08:00] VITALS: Ht 147.3 cm; Wt 86.4 kg
[2017-12-30] MEDS ORDERED: OPTIRAY 320 IV PRN (08:45)
--- NOTE | 2017-12-30 08:49 | EMERGENCY ROOM VISIT NOTE ---
History First contact with patient: 08:07 Chief Complaint: SORETHROAT Stated Complaint: SWOLLEN THROAT History of Present Illness The patient is a 72 year old female who presents to the Emergency Room with complaints of a round soft lump in the right side under her mandible that she first noticed this morning upon wakening. Lump is mildly achy and painful, is 2 /10. Pt reports it was not there when she went to bed last night. Has not had anything to eat or drink this morning. Denies headache, chills, fever, pain. She is able to swallow. Has not been ill lately. Denies trauma to the area. Has had multiple cancers of the skin including melanoma and also the breast. Review of Systems ROS See HPI for pertinent positives and negatives. Past Medical/Surgical History Medical Problems: (1) Asthma, Unspecified (2) Cholecystectomy (3) Chronic Liver Dis Nec (4) Chronic obstructive lung disease (5) Chronic osteoarthritis (6) Diverticulosis Colon (W/O Ment Of Hemorrhage) (7) History of bilateral mastectomy (8) Hypertension Nos (9) Osteoporosis (10) Pneumonia, Organism Nos (11) Replacement of total knee joint Family History Cancer Diabetes mellitus Hypertension Lung disease Social History Smoking Status: Former Smoker Alcohol Use: none Drug Use: none Marital Status: single Housing Status: lives alone Occupation Status: employed Current/Historical Medications Scheduled Cephalexin Monohydrate (Keflex), 500 MG PO QID Cephalexin Monohydrate (Keflex), 500 MG PO QID Metformin HCl (Metformin HCl), 500 MG PO HOLD Methenamine Mandelate (Methenamine Mandelate), 1 GM PO HS Oxybutynin Chloride (Oxybutynin Chloride ER), 10 MG PO QD@1200 Scheduled PRN Oxycodone/Acetaminophen 5MG/325MG (Percocet 5MG/325MG), 1 TABLET PO Q8 PRN for Pain Physical Exam Vital Signs Date Time Temp Pulse Resp B/P (MAP) Pulse Ox O2 Delivery O2 Flow Rate FiO2 12/30/17 10:52 36.9 82 18 151/79 94 12/30/17 10:51 82 18 151/79 94 Room Air 12/30/17 08:00 36.9 88 20 158/95 94 Room Air 12/30/17 08:00 94 Room Air Physical Exam GENERAL: Awake, alert, well-appearing, in no distress HENT: Round ~3cm movable lump in right submandibular area, mildly tender. Palpation along inner buccal area reveals no other lumps or irregularities. Dentition in tact. Palpation at right sided floor of mouth at about the sublingual and submandibular salivary duct orifices are tender. EYES: Normal conjunctiva. Sclera non-icteric. NECK: Supple. FROM. No JVD. RESPIRATORY: Clear to auscultation. CARDIAC: Regular rate, normal rhythm. Extremities warm and well perfused. Pulses equal. LOWER EXTREMITIES: Calves are equal size bilaterally and non-tender. No edema. No discoloration. NEURO: No motor deficits noted. SKIN: No rash or jaundice noted. Neg for warmth, ulceration or erythema of the overlying skin of neck mass. Medical Decision & Procedures Laboratory Results 12/30/17 08:40 Red Blood Count 5.19, Mean Corpuscular Volume 89.6, Mean Corpuscular Hemoglobin 30.3, Mean Corpuscular Hemoglobin Concent 33.8, Mean Platelet Volume 11.0, Neutrophils (%) (Auto) 70.1, Lymphocytes (%) (Auto) 21.1, Monocytes (%) (Auto) 8.4, Eosinophils (%) (Auto) 0.1, Basophils (%) (Auto) 0.1, Neutrophils # (Auto) 6.63, Lymphocytes # (Auto) 2.00, Monocytes # (Auto) 0.80, Eosinophils # (Auto) 0.01, Basophils # (Auto) 0.01 12/30/17 08:40 Test 12/30/17 08:40 White Blood Count 9.47 K/uL (4.8-10.8) Red Blood Count 5.19 M/uL (4.2-5.4) Hemoglobin 15.7 g/dL (12.0-16.0) Hematocrit 46.5 % (37-47) Mean Corpuscular Volume 89.6 fL (80-100) Mean Corpuscular Hemoglobin 30.3 pg (25-34) Mean Corpuscular Hemoglobin Concent 33.8 g/dl (32-36) Platelet Count 189 K/uL (130-400) Mean Platelet Volume 11.0 fL (7.4-10.4) Neutrophils (%) (Auto) 70.1 % Lymphocytes (%) (Auto) 21.1 % Monocytes (%) (Auto) 8.4 % Eosinophils (%) (Auto) 0.1 % Basophils (%) (Auto) 0.1 % Neutrophils # (Auto) 6.63 K/uL (1.4-6.5) Lymphocytes # (Auto) 2.00 K/uL (1.2-3.4) Monocytes # (Auto) 0.80 K/uL (0.11-0.59) Eosinophils # (Auto) 0.01 K/uL (0-0.5) Basophils # (Auto) 0.01 K/uL (0-0.2) RDW Standard Deviation 43.2 fL (36.4-46.3) RDW Coefficient of Variation 13.1 % (11.5-14.5) Immature Granulocyte % (Auto) 0.2 % Immature Granulocyte # (Auto) 0.02 K/uL (0.00-0.02) Anion Gap 5.0 mmol/L (3-11) Est Creatinine Clear Calc Drug Dose 59.0 ml/min Estimated GFR () 86.8 Estimated GFR (Non- 74.9 BUN/Creatinine Ratio 15.3 (10-20) Calcium Level 9.0 mg/dl (8.5-10.1) Medications Administered Medications (Trade) Dose Ordered Sig/Nolan Route Start Time Stop Time Status Last Admin Dose Admin Cephalexin Monohydrate (Keflex Cap) 500 mg NOW ONCE PO 12/30/17 10:30 12/30/17 10:31 DC 12/30/17 10:51 500 MG ED Course 0807 Reviewed records, resident saw and assessed pt 0820 Discussed with attending, attending sees and assesses pt [address] neck with IV contrast [address] with attending, reactive lymphadenopathy likely due to sialadenitis. Clinically follow to resolution. 1034 Discussed with pt, plan for antibiotic therapy and medically stable for discharge Medical Decision The patient is a 72 year old female who presents to the Emergency Room with complaints of a round soft lump in the right side under her mandible that she first noticed this morning upon wakening. Lump is mildly achy and painful, is 2 /10. Pt reports it was not there when she went to bed last night. Has not had anything to eat or drink this morning. Denies headache, chills, fever, pain. She is able to swallow. Has not been ill lately. Denies trauma to the area. Has had multiple cancers of the skin including melanoma and also the breast. Diff dx: lymphadenopathy, sialadenitis, tumor, abscess in neck CT reviewed, shows reactive lymphadenopathy with stranding of cervical nodes, likely 2/2 sialadenitis. CBC wnl, cmp unremarkable. Discussed with pt plan to treat with antibiotic, and recommend good hydration and chewing on sour hard candies. Pt verbalized understanding and agreement with plan. Discussed following up with her PCP for clinical resolution of her swollen lymph node, which may take 2-3 weeks to resolve. Blood Pressure Screening Patient's blood pressure: Elevated blood pressure Blood pressure disposition: Elevated BP felt to be situational Impression Primary Impression: Sialadenitis Additional Impression: Lymphadenopathy of right cervical region Departure Information Dispostion Home / Self-Care Condition GOOD Prescriptions Cephalexin Monohydrate (Keflex) 500 Mg Cap 500 MG PO QID, #28 CAP Prov: Cosme Sullivan DO 12/30/17 Cephalexin Monohydrate (KEFLEX) 500 Mg Cap 500 MG PO QID for 7 Days, #28 CAP Prov: Stefanie Barnard M.D. 12/30/17 Referrals Yuri Fregoso MD (PCP) Patient Instructions My [facility] Resident Tracking Resident Involvement: Resident Care Provided Care Provided: Adult ED Problem Qualifiers
[2017-12-30] MEDS ORDERED: CEPH500C2 PO ×2 (08:52→10:29)
[2017-12-30 09:05] LABS: BASO % 0.1 %; BASO ABS # 0.01 K/uL (0-0.2); EOS % 0.1 %; EOS ABS # 0.01 K/uL (0-0.5); HEMATOCRIT 46.5 % (37-47); HEMOGLOBIN 15.7 g/dL (12.0-16.0); IG# 0.02 K/uL (0.00-0.02); LYMPH % 21.1 %; MEAN CELL VOLUME 89.6 fL (80-100); MEAN CORPUSCULAR HEMOGLOBIN 30.3 pg (25-34); MEAN CORPUSCULAR HGB CONC 33.8 g/dl (32-36); MONO % 8.4 %; NEUT % 70.1 %; NEUT ABS # 6.63 K/uL (1.4-6.5); PLATELET COUNT 189 K/uL (130-400); RED CELL DISTRIBUTION WIDTH CV 13.1 % (11.5-14.5); RED CELL DISTRIBUTION WIDTH SD 43.2 fL (36.4-46.3); WHITE BLOOD COUNT 9.47 K/uL (4.8-10.8)
[2017-12-30 09:18] LABS: CREATININE 0.78 mg/dl (0.60-1.20); POTASSIUM 3.9 mmol/L (3.5-5.1)
--- NOTE | 2017-12-30 10:06 | DIAGNOSTIC IMAGING REPORT ---
CT SCAN OF THE NECK WITH IV CONTRAST CLINICAL HISTORY: Right-sided neck pain. Mass. COMPARISON STUDY: PET/CT dated 08/04/2017. TECHNIQUE: Following the IV administration of 83 cc of Optiray 320, CT scan of the soft tissues of the neck was performed from the skull base to the upper chest. Images are reviewed in the axial, sagittal, and coronal planes. IV contrast was administered without complication. A dose lowering technique was utilized adhering to the principles of ALARA. CT DOSE: 432.47 mGycm FINDINGS: Soft tissues: A cutaneous marker has been placed over the right submandibular region. This is located superficial to a mildly enlarged right-sided mandibular lymph node. The node measures 1.1 x 1.0 cm, and there is mild stranding in the overlying soft tissues. There is also hyperemia in the underlying right-sided mandibular gland. Pharynx: The nasopharynx, oropharynx, and laryngeal pharynx are normal in appearance. The pharyngeal airway is widely patent. There is no evidence of mass lesion. The vocal cords are symmetric. The parapharyngeal fat is well maintained. The prevertebral/retropharyngeal soft tissues are within normal limits. Lymphadenopathy: As noted above, there is a 1.1 x 1.0 cm right-sided mandibular lymph node identified at the indicated site of interest. Additional shotty cervical nodes are identified. These are not clearly pathologically enlarged by size criteria Thyroid: Normal in size and attenuation. Subcentimeter nodules are suggested in the left lobe. Salivary glands: The parotid and left submandibular glands are within normal limits. The right submandibular gland appears mildly enlarged and hyperemic as seen on image #129. Brain parenchyma: The visualized brain parenchyma at the skull base is normal in appearance. Vascular structures: The carotid arteries and jugular veins appear widely patent. Skeletal structures: The skeletal structures are osteopenic. Imaged portions of the calvarium at the skull base are within normal limits. The cervical spine appears intact note moderate to advanced multilevel cervical spondylosis. No lytic or blastic lesion is identified. Sinuses and mastoids: The visualized paranasal sinuses are clear. The mastoid air cells are well pneumatized. Orbits: The bony orbits are intact. Orbital contents are normal in appearance noting bilateral ocular lens implants. Lung apices: Visualized apical lung parenchyma is clear. IMPRESSION: 1. The right submandibular gland appears mildly enlarged and hyperemic with overlying inflammatory stranding. The appearance suggests sialadenitis. 2. The cutaneous marker at the indicated site of interest overlies a prominent right submandibular lymph node. This has increased in size from 08/04/2017 and is likely reactive, related to underlying sialadenitis. Clinical follow-up to resolution is recommended. Consider repeat imaging with ultrasound if this fails to resolve over a reasonable time course. 3. Additional shotty right cervical lymph nodes are likely on a reactive basis. These are not pathologically enlarged by size criteria. 4. The pharyngeal soft tissues are normal in appearance. Electronically signed by: Ponce Scott M.D. 12/30/2017 10:04 AM Dictated Date/Time: 12/30/2017 9:55 AM
[2017-12-30] MEDS ORDERED: CEPHALEXIN MONOHYDRATE 250 MG CAP PO ONE (10:30)
[2017-12-30] MEDS ORDERED: CEPH500C PO (10:31)
[2017-12-30] MEDS ORDERED: METH1TAB3 PO (10:49)
[2017-12-30 10:52] VITALS: BP 151/79; PULSE 82; TEMP 36.9; O2SAT 94
[2017-12-30] MEDS ORDERED: DTRSR/10 PO (11:43)
--- NOTE | 2017-12-30 13:44 | EMERGENCY ROOM VISIT NOTE ---
History Report prepared by Margaret: Dominic Abbott Under the Supervision of: Dr. Cosme Sullivan D.O. First contact with patient: 08:06 Chief Complaint: SORETHROAT Stated Complaint: SWOLLEN THROAT History of Present Illness The patient is a 72 year old female who presents to the Emergency Room with concerns over a "lump" in the right side of her neck, under her chin. The patient found the lump this morning, and is sure that it was not there last night. There is pain with swallowing, that she describes as an "ache." She rates the severity of this pain as a 2/10 in severity. Pain is worsened with swallowing. No other remitting factors. The patient denies any headache, change in vision, fevers, chest pain, shortness of breath, nausea, vomiting, diarrhea, pain with urination, and melena. The patient notes a history of multiple forms of cancer including breast, melanoma, and a facial carcinoma. Source of History: patient Onset: This morning Position: neck (right side, under the chin) Symptom Intensity: 2/10 Quality: ache Associated Symptoms: No chest pain, No SOB Review of Systems See HPI for pertinent positives & negatives. A total of 10 systems reviewed and were otherwise negative. Past Medical & Surgical Medical Problems: (1) Asthma, Unspecified (2) Cholecystectomy (3) Chronic Liver Dis Nec (4) Chronic obstructive lung disease (5) Chronic osteoarthritis (6) Diverticulosis Colon (W/O Ment Of Hemorrhage) (7) History of bilateral mastectomy (8) Hypertension Nos (9) Osteoporosis (10) Pneumonia, Organism Nos (11) Replacement of total knee joint Family History Cancer Diabetes mellitus Hypertension Lung disease Social History Smoking Status: Former Smoker Alcohol Use: none Drug Use: none Marital Status: single Housing Status: lives alone Occupation Status: employed Current/Historical Medications Scheduled Cephalexin Monohydrate (Keflex), 500 MG PO QID Cephalexin Monohydrate (Keflex), 500 MG PO QID Metformin HCl (Metformin HCl), 500 MG PO HOLD Methenamine Mandelate (Methenamine Mandelate), 1 GM PO HS Oxybutynin Chloride (Oxybutynin Chloride ER), 10 MG PO QD@1200 Scheduled PRN Oxycodone/Acetaminophen 5MG/325MG (Percocet 5MG/325MG), 1 TABLET PO Q8 PRN for Pain Allergies Coded Allergies: Amoxicillin (Verified Allergy, Unknown, childhood allergy, 12/30/17) Penicillins (Verified Allergy, Unknown, HAPPENED A CHILD, 12/30/17) Physical Exam Vital Signs Date Time Temp Pulse Resp B/P (MAP) Pulse Ox O2 Delivery O2 Flow Rate FiO2 12/30/17 10:52 36.9 82 18 151/79 94 12/30/17 10:51 82 18 151/79 94 Room Air 12/30/17 08:00 36.9 88 20 158/95 94 Room Air 12/30/17 08:00 94 Room Air Physical Exam GENERAL: Sitting up in bed, alert, well appearing, well nourished, talking in full sentences. no distress, non-toxic EYE EXAM: normal conjunctiva. OROPHARYNX: no exudate, no erythema, lips, buccal mucosa, and tongue normal and mucous membranes are moist. Mucous membranes are moist, able to open jaw completely, poor dentition. No periapical abscesses. No submandibular swelling within the midline. Middle of the right mandible medial aspect area of firmness which is acutely tender to palpation. Tolerating secretions. NECK: supple, no nuchal rigidity. LUNGS: Clear to auscultation. Normal chest wall mechanics HEART: no murmurs, S1 normal and S2 normal ABDOMEN: abdomen soft, non-tender, normo-active bowel sounds, no masses, no rebound or guarding. BACK: Back is symmetrical on inspection and there is no deformity, no midline tenderness, no CVA tenderness. SKIN: no rashes and no bruising UPPER EXTREMITIES: upper extremities are grossly normal. LOWER EXTREMITIES: No pitting edema. NEURO EXAM: Normal sensorium, cranial nerves II-XII grossly intact, normal speech, no gross weakness of arms, no gross weakness of legs. Ambulated with walker. Medical Decision & Procedures ER Provider Diagnostic Interpretation: Radiology results as stated below per my review and the radiologist's interpretation: CT SCAN OF THE NECK WITH IV CONTRAST CLINICAL HISTORY: Right-sided neck pain. Mass. COMPARISON STUDY: PET/CT dated 08/04/2017. TECHNIQUE: Following the IV administration of 83 cc of Optiray 320, CT scan of the soft tissues of the neck was performed from the skull base to the upper chest. Images are reviewed in the axial, sagittal, and coronal planes. IV contrast was administered without complication. A dose lowering technique was utilized adhering to the principles of ALARA. CT DOSE: 432.47 mGycm FINDINGS: Soft tissues: A cutaneous marker has been placed over the right submandibular region. This is located superficial to a mildly enlarged right-sided mandibular lymph node. The node measures 1.1 x 1.0 cm, and there is mild stranding in the overlying soft tissues. There is also hyperemia in the underlying right-sided mandibular gland. Pharynx: The nasopharynx, oropharynx, and laryngeal pharynx are normal in appearance. The pharyngeal airway is widely patent. There is no evidence of mass lesion. The vocal cords are symmetric. The parapharyngeal fat is well maintained. The prevertebral/retropharyngeal soft tissues are within normal limits. Lymphadenopathy: As noted above, there is a 1.1 x 1.0 cm right-sided mandibular lymph node identified at the indicated site of interest. Additional shotty cervical nodes are identified. These are not clearly pathologically enlarged by size criteria Thyroid: Normal in size and attenuation. Subcentimeter nodules are suggested in the left lobe. Salivary glands: The parotid and left submandibular glands are within normal limits. The right submandibular gland appears mildly enlarged and hyperemic as seen on image #129. Brain parenchyma: The visualized brain parenchyma at the skull base is normal in appearance. Vascular structures: The carotid arteries and jugular veins appear widely patent. Skeletal structures: The skeletal structures are osteopenic. Imaged portions of the calvarium at the skull base are within normal limits. The cervical spine appears intact note moderate to advanced multilevel cervical spondylosis. No lytic or blastic lesion is identified. Sinuses and mastoids: The visualized paranasal sinuses are clear. The mastoid air cells are well pneumatized. Orbits: The bony orbits are intact. Orbital contents are normal in appearance noting bilateral ocular lens implants. Lung apices: Visualized apical lung parenchyma is clear. IMPRESSION: 1. The right submandibular gland appears mildly enlarged and hyperemic with overlying inflammatory stranding. The appearance suggests sialadenitis. 2. The cutaneous marker at the indicated site of interest overlies a prominent right submandibular lymph node. This has increased in size from 08/04/2017 and is likely reactive, related to underlying sialadenitis. Clinical follow-up to resolution is recommended. Consider repeat imaging with ultrasound if this fails to resolve over a reasonable time course. 3. Additional shotty right cervical lymph nodes are likely on a reactive basis. These are not pathologically enlarged by size criteria. 4. The pharyngeal soft tissues are normal in appearance. Electronically signed by: Ponce Scott M.D. 12/30/2017 10:04 AM Dictated Date/Time: 12/30/2017 9:55 AM Laboratory Results 12/30/17 08:40 Red Blood Count 5.19, Mean Corpuscular Volume 89.6, Mean Corpuscular Hemoglobin 30.3, Mean Corpuscular Hemoglobin Concent 33.8, Mean Platelet Volume 11.0, Neutrophils (%) (Auto) 70.1, Lymphocytes (%) (Auto) 21.1, Monocytes (%) (Auto) 8.4, Eosinophils (%) (Auto) 0.1, Basophils (%) (Auto) 0.1, Neutrophils # (Auto) 6.63, Lymphocytes # (Auto) 2.00, Monocytes # (Auto) 0.80, Eosinophils # (Auto) 0.01, Basophils # (Auto) 0.01 12/30/17 08:40 Test 12/30/17 08:40 White Blood Count 9.47 K/uL (4.8-10.8) Red Blood Count 5.19 M/uL (4.2-5.4) Hemoglobin 15.7 g/dL (12.0-16.0) Hematocrit 46.5 % (37-47) Mean Corpuscular Volume 89.6 fL (80-100) Mean Corpuscular Hemoglobin 30.3 pg (25-34) Mean Corpuscular Hemoglobin Concent 33.8 g/dl (32-36) Platelet Count 189 K/uL (130-400) Mean Platelet Volume 11.0 fL (7.4-10.4) Neutrophils (%) (Auto) 70.1 % Lymphocytes (%) (Auto) 21.1 % Monocytes (%) (Auto) 8.4 % Eosinophils (%) (Auto) 0.1 % Basophils (%) (Auto) 0.1 % Neutrophils # (Auto) 6.63 K/uL (1.4-6.5) Lymphocytes # (Auto) 2.00 K/uL (1.2-3.4) Monocytes # (Auto) 0.80 K/uL (0.11-0.59) Eosinophils # (Auto) 0.01 K/uL (0-0.5) Basophils # (Auto) 0.01 K/uL (0-0.2) RDW Standard Deviation 43.2 fL (36.4-46.3) RDW Coefficient of Variation 13.1 % (11.5-14.5) Immature Granulocyte % (Auto) 0.2 % Immature Granulocyte # (Auto) 0.02 K/uL (0.00-0.02) Anion Gap 5.0 mmol/L (3-11) Est Creatinine Clear Calc Drug Dose 59.0 ml/min Estimated GFR () 86.8 Estimated GFR (Non- 74.9 BUN/Creatinine Ratio 15.3 (10-20) Calcium Level 9.0 mg/dl (8.5-10.1) Laboratory results per my review. Medications Administered Medications (Trade) Dose Ordered Sig/Nolan Route Start Time Stop Time Status Last Admin Dose Admin Cephalexin Monohydrate (Keflex Cap) 500 mg NOW ONCE PO 12/30/17 10:30 12/30/17 10:31 DC 12/30/17 10:51 500 MG ED Course ED COURSE: Vital signs were reviewed and showed hypertensive vitals. The patients medical record was reviewed The above diagnostic studies were performed and reviewed. ED treatments and interventions as stated above. 0809: The patient was evaluated in room B3. A complete history and physical examination was performed. 1030: Ordered Keflex 500 mg PO. 1049: Upon reevaluation, the patient is resting comfortably.I discussed my findings with the patient and she understands and agrees with the treatment plan. Based on the patients age, coexisting illnesses, exam and lab findings the decision to treat as an outpatient was made. The patient remained stable while under my care. The patient appeared well at the time of discharge. Medical Decision Differential Diagnosis includes; Sialadenitis, John's angina, lymphadenopathy , abscess, cancer, strep throat, retropharyngeal abscess, peritonsillar abscess , Patient is a 72-year-old female that was seen independently of the resident that presents for right submandibular swelling. CBC along with BMP shows a mild hyponatremia. CT shows sialoadenitis along with an enlarged lymph node. No signs of John's. Afebrile. Patient has no other complaints at this time. Patient was updated at bedside. She was discharged on Keflex and instructed to follow-up and use sour mouth drops. Discussed with Pt concerning signs and symptoms to watch out for. Pt was instructed to follow up with their PCP and discussed with the patient their option to return to the ED at anytime for persistent or worsening symptoms. The appropriate anticipatory guidance and out- patient management, including indications for return to the emergency department , were explained at length to the patient and understood. Medication Reconcilliation Current Medication List: was personally reviewed by me Blood Pressure Screening Patient's blood pressure: Elevated blood pressure Impression Primary Impression: Sialadenitis Additional Impression: Lymphadenopathy of right cervical region Scribe Attestation The scribe's documentation has been prepared under my direction and personally reviewed by me in its entirety. I confirm that the note above accurately reflects all work, treatment, procedures, and medical decision making performed by me. Departure Information Dispostion Home / Self-Care Prescriptions Cephalexin Monohydrate (Keflex) 500 Mg Cap 500 MG PO QID, #28 CAP Prov: Cosme Sullivan, 12/30/17 Cephalexin Monohydrate (KEFLEX) 500 Mg Cap 500 MG PO QID for 7 Days, #28 CAP Prov: Stefanie Barnard M.D. 12/30/17 Referrals Yuri Fregoso MD (PCP) Forms HOME CARE DOCUMENTATION FORM, IMPORTANT VISIT INFORMATION Patient Instructions My [facility] Additional Instructions Please follow up with your primary care doctor with in the next 24 hours. Any worsening of your symptoms, please return to the ED immediately. This includes any fevers greater than 100.4, inability to swallow, swelling underneath her tongue, swelling of her throat, worsening pain, chest pain, shortness breath, persistent nausea, vomiting, unable to eat or drink, or any other concerning signs or symptoms from your standpoint. Your found to have swelling of her right submandibular gland. We recommend using hard sour candies as regularly as possible which will help express the fluid from your submandibular gland. Please continue antibiotics as prescribed. The lymph node swelling is secondary to the submandibular infection. Problem Qualifiers
[2017-12-30] MEDS ORDERED: GLC500 PO (20:58)
== END 2017-12-30 10:53 | disposition home or self-care (01) ==
LOC: C.EDB 07:58
DX: K11.20 Sialoadenitis, unspecified (principal); R59.1 Generalized enlarged lymph nodes; J45.909 Unspecified asthma, uncomplicated; J44.9 Chronic obstructive pulmonary disease, unspecified; I10 Essential (primary) hypertension; M81.0 Age-related osteoporosis without current pathological fracture; Z83.3 Family history of diabetes mellitus; Z82.49 Family history of ischemic heart disease and other diseases of the circulatory system; Z87.891 Personal history of nicotine dependence; Z88.0 Allergy status to penicillin; Z88.8 Allergy status to other drugs, medicaments and biological substances

== ENCOUNTER 2018-01-01 08:10 | Emergency (ER) | payer OTHER ==
[~2018-01-01] VITALS: Ht 147.3 cm; Wt 85.4 kg
[~2018-01-01 08:10] MED LIST changes: +CEPH500C PO; +CEPH500C2 PO; +DTRSR/10 PO; +GLC500 PO; +METH1TAB3 PO; -VNTHFA/IN INH
[2018-01-01 08:14] VITALS: TEMP 36.8; Ht 147.3 cm; Wt 85.4 kg
[2018-01-01 08:48] LABS: BASO % 0.3 %; BASO ABS # 0.02 K/uL (0-0.2); EOS % 2.3 %; EOS ABS # 0.17 K/uL (0-0.5); HEMATOCRIT 46.2 % (37-47); HEMOGLOBIN 15.6 g/dL (12.0-16.0); IG# 0.01 K/uL (0.00-0.02); LYMPH % 37.4 %; LYMPH ABS # 2.74 K/uL (1.2-3.4); MEAN CELL VOLUME 89.9 fL (80-100); MEAN CORPUSCULAR HEMOGLOBIN 30.4 pg (25-34); MEAN CORPUSCULAR HGB CONC 33.8 g/dl (32-36); MEAN PLATELET VOLUME 11.4 fL (7.4-10.4); MONO % 8.9 %; MONO ABS # 0.65 K/uL (0.11-0.59); NEUT ABS # 3.74 K/uL (1.4-6.5); PLATELET COUNT 183 K/uL (130-400); WHITE BLOOD COUNT 7.33 K/uL (4.8-10.8)
[2018-01-01 09:06] LABS: CALCIUM 9.2 mg/dl (8.5-10.1); CREATININE 0.7 mg/dl (0.60-1.20)
[2018-01-01] MEDS ORDERED: CLINDAMYCIN IV 600 MG in DEXTROSE 5% 50ML 50 ML IV ONE (09:15)
[2018-01-01 10:12] VITALS: BP 140/81; PULSE 76; O2SAT 95
[2018-01-01] MEDS ORDERED: CLIN300C2 PO (10:29)
--- NOTE | 2018-01-01 10:30 | EMERGENCY ROOM VISIT NOTE ---
History First contact with patient: 08:25 Chief Complaint: SWELLING TO EXTREMITY Stated Complaint: LUMP IN THROAT History of Present Illness The patient is a 72 year old female who presents to the Emergency Room with complaints of a lump in her throat. The patient states that she was seen here 2 days ago for an area of swelling in the right side of her neck/throat. She states that she was started on an antibiotic but has not improved. She states that the swelling has not worsened, but it has not improved. She has no difficulty swallowing. She states that her tongue feels slightly sore. She denies any swelling within the mouth. She rates her overall discomfort a 1/10. She states that she was told to get some sour candies and got some sour Gummies but they have not been helping. She has no difficulty moving her neck. She denies headache, chest pain, shortness of breath. Review of Systems A complete 10 point review of systems was reviewed with the patient with pertinent positives and negatives as per history of present illness. All else were negative. Past Medical/Surgical History Medical Problems: (1) Asthma, Unspecified (2) Cholecystectomy (3) Chronic Liver Dis Nec (4) Chronic obstructive lung disease (5) Chronic osteoarthritis (6) Diverticulosis Colon (W/O Ment Of Hemorrhage) (7) History of bilateral mastectomy (8) Hypertension Nos (9) Osteoporosis (10) Pneumonia, Organism Nos (11) Replacement of total knee joint Family History Cancer Diabetes mellitus Hypertension Lung disease Social History Smoking Status: Former Smoker Alcohol Use: none Drug Use: none Marital Status: single Housing Status: lives alone Occupation Status: employed Current/Historical Medications Scheduled Cephalexin Monohydrate (Keflex), 500 MG PO QID Clindamycin Hcl (Cleocin), 300 MG PO QID Metformin HCl (Metformin HCl), 500 MG PO HOLD Methenamine Mandelate (Methenamine Mandelate), 1 GM PO HS Oxybutynin Chloride (Oxybutynin Chloride ER), 10 MG PO QD@1200 Scheduled PRN Oxycodone/Acetaminophen 5MG/325MG (Percocet 5MG/325MG), 1 TABLET PO Q8 PRN for Pain Physical Exam Vital Signs Date Time Temp Pulse Resp B/P (MAP) Pulse Ox O2 Delivery O2 Flow Rate FiO2 01/01/18 10:12 76 16 140/81 95 Room Air 01/01/18 08:14 36.8 81 18 177/95 92 Room Air Physical Exam VITALS: Vitals are noted on the nurse's note and reviewed by myself. Vital signs stable. GENERAL: This is a 72-year-old female, in no acute distress, nondiaphoretic, well-developed well-nourished. SKIN: The skin was without rashes. EARS: External auditory canals clear, tympanic membranes pearly chacko without erythema or effusion bilaterally. EYES: Pupils equal round and reactive to light and accommodation. NOSE: Patent, turbinates without inflammation or discharge. MOUTH: Mucous membranes moist. Tonsils are not enlarged. Pharynx without erythema or exudate. Uvula midline. No tenderness to palpation of the floor of the mouth. NECK: Supple without nuchal rigidity. There is a mildly tender area of swelling to the angle of the right mandible consistent with sialoadenitis/ lymphadenopathy. HEART: Regular rate and rhythm without murmurs gallops or rubs. LUNGS: Clear to auscultation bilaterally without wheezes, rales or rhonchi. NEURO: Patient was alert and oriented to person place and time. Medical Decision & Procedures Laboratory Results 01/01/18 08:40 Red Blood Count 5.14, Mean Corpuscular Volume 89.9, Mean Corpuscular Hemoglobin 30.4, Mean Corpuscular Hemoglobin Concent 33.8, Mean Platelet Volume 11.4, Neutrophils (%) (Auto) 51.0, Lymphocytes (%) (Auto) 37.4, Monocytes (%) (Auto) 8.9, Eosinophils (%) (Auto) 2.3, Basophils (%) (Auto) 0.3, Neutrophils # (Auto) 3.74, Lymphocytes # (Auto) 2.74, Monocytes # (Auto) 0.65, Eosinophils # (Auto) 0.17, Basophils # (Auto) 0.02 01/01/18 08:40 Test 01/01/18 08:40 White Blood Count 7.33 K/uL (4.8-10.8) Red Blood Count 5.14 M/uL (4.2-5.4) Hemoglobin 15.6 g/dL (12.0-16.0) Hematocrit 46.2 % (37-47) Mean Corpuscular Volume 89.9 fL (80-100) Mean Corpuscular Hemoglobin 30.4 pg (25-34) Mean Corpuscular Hemoglobin Concent 33.8 g/dl (32-36) Platelet Count 183 K/uL (130-400) Mean Platelet Volume 11.4 fL (7.4-10.4) Neutrophils (%) (Auto) 51.0 % Lymphocytes (%) (Auto) 37.4 % Monocytes (%) (Auto) 8.9 % Eosinophils (%) (Auto) 2.3 % Basophils (%) (Auto) 0.3 % Neutrophils # (Auto) 3.74 K/uL (1.4-6.5) Lymphocytes # (Auto) 2.74 K/uL (1.2-3.4) Monocytes # (Auto) 0.65 K/uL (0.11-0.59) Eosinophils # (Auto) 0.17 K/uL (0-0.5) Basophils # (Auto) 0.02 K/uL (0-0.2) RDW Standard Deviation 43.0 fL (36.4-46.3) RDW Coefficient of Variation 13.0 % (11.5-14.5) Immature Granulocyte % (Auto) 0.1 % Immature Granulocyte # (Auto) 0.01 K/uL (0.00-0.02) Anion Gap 4.0 mmol/L (3-11) Est Creatinine Clear Calc Drug Dose 65.3 ml/min Estimated GFR () 98.9 Estimated GFR (Non- 85.4 BUN/Creatinine Ratio 12.9 (10-20) Calcium Level 9.2 mg/dl (8.5-10.1) Medications Administered Medications (Trade) Dose Ordered Sig/Nolan Route Start Time Stop Time Status Last Admin Dose Admin Clindamycin Phosphate 600 mg/ Dextrose 54 ml @ 100 mls/hr ONE ONCE IV 01/01/18 09:15 01/01/18 09:47 DC 01/01/18 09:45 100 MLS/HR Medical Decision Differential diagnosis includes sialoadenitis, mass, lymphadenitis, abscess, among others. The patient is a 72-year-old female who presents today complaining of swelling to the right side of the neck. The patient had been seen here 2 days ago and started on Keflex. She has not had any improvement, but has not had any worsening symptoms. Her exam shows some moderate swelling. There is no evidence of a worsening infection. I suspect that the patient's soreness of her tongue is likely due to chewing several sour candies. She was advised to purchase lemon candies. Labs here revealed no leukocytosis. CT 2 days ago showed sialoadenitis and lymphadenopathy. I do not feel repeat imaging is necessary at this time. Patient was given a dose of clindamycin and will be started on this in addition to the Keflex. She was advised to follow-up with her PCP within 48 hours for another recheck. Based on the patient's presentation and work up, I feel the patient is stable for outpatient treatment. The patient was educated to return to the emergency department for any worsening of their current condition or new/concerning symptoms. She will follow up with her PCP. The patient was independently evaluated by Dr. Ortiz, ED attending physician, who agreed with my assessment and treatment plan. Medication Reconcilliation Current Medication List: was personally reviewed by me Blood Pressure Screening Patient's blood pressure: Normal blood pressure Impression Primary Impression: Sialoadenitis Departure Information Dispostion Home / Self-Care Condition GOOD Prescriptions Clindamycin Hcl (CLEOCIN) 300 Mg Cap 300 MG PO QID for 7 Days, #28 CAP Prov: Belia Linn ., MATT 01/01/18 Referrals Yuri Fregoso MD (PCP) Patient Instructions My [facility] Additional Instructions You were prescribed clindamycin to be taken 4 times daily as prescribed. This is an antibiotic. All antibiotics have the potential to cause diarrhea. Stop this medication and contact a medical provider if you were to develop any significant adverse side effects including: wheezing, shortness of breath, passing out, vomiting, or a diffuse rash. Always take antibiotics as directed and COMPLETE the ENTIRE course regardless of the improvement of your symptoms. Continue the Keflex that you were prescribed at your previous visit. For pain control, you can use the following [id number] medicines (if >12 yo): - Regular strength (325mg/tab) Tylenol (acetaminophen) 2 tabs every 4-6 hours as needed. Do not exceed 12 tablets in a 24 hour period. Avoid taking more than 4 grams (4000 mg) of Tylenol per day. This includes any other sources of acetaminophen you may take on a regular basis. - Regular strength (200 mg/tab) Advil (ibuprofen) 1-2 tabs every 4-6 hours as needed. Do not exceed a dose of 3200 mg per day. Follow-up with your primary care provider first thing on Wednesday for a recheck. If you have worsening swelling, difficulty swallowing, fever, or any other new/ concerning symptoms, return to the emergency department immediately.
--- NOTE | 2018-01-01 12:19 | EMERGENCY ROOM VISIT NOTE ---
ED Visit Note First contact with patient: 08:25 I have personally evaluated this patient examined her and reviewed the pertinent labs and data. I have discussed the case with the physician medical billing assistant and agree with the plan. Please refer to the PA note This patient comes in after continued to have pain with sialadenitis. She had a CAT scan the other day. The floor of her mouth is soft and on my exam she appears in no distress. She has some mild swelling. Her white count is not elevated. she's had no fever. She has nothing to suggest sepsis or airway compromise We will broaden antibiotic coverage by adding Clindamycin she had IV dose here she'll follow-up with her doctor Wednesday for recheck and return over the if symptoms worsen.
== END 2018-01-01 10:50 | disposition home or self-care (01) ==
LOC: C.EDB 08:12
DX: K11.20 Sialoadenitis, unspecified (principal); J45.909 Unspecified asthma, uncomplicated; Z90.49 Acquired absence of other specified parts of digestive tract; K76.9 Liver disease, unspecified; J44.9 Chronic obstructive pulmonary disease, unspecified; M19.90 Unspecified osteoarthritis, unspecified site; Z90.13 Acquired absence of bilateral breasts and nipples; I10 Essential (primary) hypertension; M81.0 Age-related osteoporosis without current pathological fracture; Z87.01 Personal history of pneumonia (recurrent); Z96.659 Presence of unspecified artificial knee joint; Z80.9 Family history of malignant neoplasm, unspecified; Z83.3 Family history of diabetes mellitus; Z82.49 Family history of ischemic heart disease and other diseases of the circulatory system; Z87.891 Personal history of nicotine dependence; Z79.899 Other long term (current) drug therapy

== ENCOUNTER → 2018-02-15 | Outpatient (CLI) | payer OTHER ==
[~2018-02-15] MED LIST changes: -CEPH500C PO
--- NOTE | 2018-02-15 12:17 | DIAGNOSTIC IMAGING REPORT ---
SOFT TISSUE ULTRASOUND OF THE RIGHT NECK CLINICAL HISTORY: Right neck swelling. COMPARISON STUDY: CT scan dated 12/30/2017 FINDINGS: No pathologic masses or pathologically enlarged right neck nodes are visualized. If a clinically suspicious mass is palpated, enhanced CT scanning of the neck should be performed in follow-up, as this could be compared with the prior December 30, 2017 study IMPRESSION: No pathologic masses or adenopathy identified ultrasonographically within the right neck Electronically signed by: Deandre Phillip M.D. 02/15/2018 12:16 PM Dictated Date/Time: 02/15/2018 12:13 PM
== END | disposition home or self-care (01) ==
LOC: C.ULTR 11:38
PROVIDERS: ATTEND Internal Medicine
DX: R22.1 Localized swelling, mass and lump, neck (principal)

== ENCOUNTER → 2018-04-22 | Outpatient (CLI) | payer OTHER ==
--- NOTE | 2018-04-22 14:22 | DIAGNOSTIC IMAGING REPORT ---
L EXTREMITY NONVASCULAR LIMITED HISTORY: 72 years-old Female LEFT ELBOW MASS acute left elbow pain COMPARISON: Left upper extremity ultrasound 03/18/2018 TECHNIQUE: Multiple real-time sonographic images of the left elbow soft tissues were obtained assessing grayscale appearance and color flow FINDINGS: Within the area of concern, there is a hyperechoic ill-defined ovoid focus within the subcutaneous tissues measuring 0.9 x 0.5 x 0.8 cm with internal vascularity noted. On comparison study from 03/18/2018, there was a hyperechoic focus within this distribution which measured up to 1.0 x 0.9 x 0.8 cm. No drainable fluid collections. IMPRESSION: Hyperechoic lesion within the subcutaneous tissues about the left elbow measures up to 0.8 cm, likely correlating with the previously noted lesion seen on study dated 03/18/2018 suggesting an epitrochlear lymph node. This appears stable to slightly decreased in size. The above report was generated using voice recognition software. It may contain grammatical, syntax or spelling errors. Electronically signed by: Anthony Redmond M.D. 04/22/2018 2:20 PM Dictated Date/Time: 04/22/2018 2:16 PM
== END | disposition home or self-care (01) ==
LOC: C.ULTR 13:48
PROVIDERS: ATTEND Internal Medicine
DX: R22.32 Localized swelling, mass and lump, left upper limb (principal)

== ENCOUNTER → 2018-05-03 | Outpatient (CLI) | payer OTHER ==
--- NOTE | 2018-05-03 07:54 | DIAGNOSTIC IMAGING REPORT ---
RIGHT INGUINAL ULTRASOUND CLINICAL HISTORY: LYMPHADENOPATHY COMPARISON STUDY: CT scan dated 03/12/2015 FINDINGS: In the right inguinal region, there is a 26 x 24 x 7 mm structure which resembles a lymph node with a normal fatty hilum. No pathologic adenopathy is identified ultrasonographically. IMPRESSION: Ultrasound reveals a 26 x 24 x 7 mm structure within the right inguinal region. This is felt to represent a lymph node. This node demonstrates no suspicious features. Electronically signed by: Deandre Phillip M.D. 05/03/2018 7:52 AM Dictated Date/Time: 05/03/2018 7:49 AM
== END | disposition home or self-care (01) ==
LOC: C.ULTR 06:32
PROVIDERS: ATTEND Internal Medicine
DX: R59.1 Generalized enlarged lymph nodes (principal)

== ENCOUNTER 2018-05-05 08:03 | Emergency (ER) | payer OTHER ==
[~2018-05-05] VITALS: Ht 147.3 cm; Wt 84.9 kg
[2018-05-05 08:05] VITALS: TEMP 36.5; Ht 147.3 cm; Wt 84.9 kg
--- NOTE | 2018-05-05 08:46 | DIAGNOSTIC IMAGING REPORT ---
LEFT THUMB 3 VIEWS HISTORY: left thumb redness/swelling/pain no trauma COMPARISON: None. FINDINGS: No acute fracture or dislocation within the left thumb. Severe cartilage space narrowing with [id number] articulation and large dorsal osteophytes at the interphalangeal joint of the thumb. This is consistent with osteoarthritis. No bony destruction to suggest an osteomyelitis. There is moderate osteoarthritis at the first MCP joint and moderate to severe osteoarthritis at the first carpometacarpal joint. No radiopaque foreign bodies. Diffuse soft tissue swelling. IMPRESSION: 1. No acute fracture or dislocation within the left thumb. 2. Advanced osteoarthritis as described above. 3. Diffuse soft tissue swelling within the left thumb. Electronically signed by: Shailesh Leblanc M.D. 05/05/2018 8:45 AM Dictated Date/Time: 05/05/2018 8:43 AM
--- NOTE | 2018-05-05 09:17 | EMERGENCY ROOM VISIT NOTE ---
History Report prepared by Margaret: Pooja Silvestre Under the Supervision of: Dr. Ananth Lipscomb D.O. First contact with patient: 08:13 Chief Complaint: FINGER PAIN Stated Complaint: POSSIBLE BROKEN THUMB History of Present Illness The patient is a 72 year old female who presents to the Emergency Room with complaints of persistent left thumb pain starting yesterday morning. The patient woke up from sleep and noticed that her thumb was painful. She does not remember any injury to the thumb. She has a history of arthritis, but her thumb pain feels different. She describes the pain as soreness. Source of History: patient Onset: yesterday morning Position: finger(s) (left thumb) Quality: other (sore) Timing: other (persistent) Note: Pt reports redness and swelling of the thumb. Review of Systems See HPI for pertinent positives & negatives. A total of 10 systems reviewed and were otherwise negative. Past Medical & Surgical Medical Problems: (1) Asthma, Unspecified (2) Cholecystectomy (3) Chronic Liver Dis Nec (4) Chronic obstructive lung disease (5) Chronic osteoarthritis (6) Diverticulosis Colon (W/O Ment Of Hemorrhage) (7) History of bilateral mastectomy (8) Hypertension Nos (9) Osteoporosis (10) Pneumonia, Organism Nos (11) Replacement of total knee joint Family History Cancer Diabetes mellitus Hypertension Lung disease Social History Smoking Status: Never Smoker Alcohol Use: none Drug Use: none Marital Status: single Housing Status: lives alone Occupation Status: retired Current/Historical Medications Scheduled Metformin HCl (Metformin HCl), 500 MG PO HOLD Methenamine Mandelate (Methenamine Mandelate), 1 GM PO HS Oxybutynin Chloride (Oxybutynin Chloride ER), 10 MG PO QD@1200 Scheduled PRN Oxycodone/Acetaminophen 5MG/325MG (Percocet 5MG/325MG), 1 TABLET PO Q8 PRN for Pain Allergies Coded Allergies: Amoxicillin (Verified Allergy, Unknown, childhood allergy, 05/05/18) Penicillins (Verified Allergy, Unknown, HAPPENED A CHILD, 05/05/18) Physical Exam Vital Signs Date Time Temp Pulse Resp B/P (MAP) Pulse Ox O2 Delivery O2 Flow Rate FiO2 05/05/18 09:24 70 16 182/82 96 05/05/18 08:05 36.5 76 18 184/98 95 Room Air Physical Exam CONSTITUTIONAL/VITAL SIGNS: Reviewed / noted above. GENERAL: Non-toxic in appearance. INTEGUMENTARY: Warm, dry, and [place]. HEAD: Normocephalic. EYES: without scleral icterus or trauma. ENT/OROPHARYNX: clear and moist. LYMPHADENOPATHY/NECK: Is supple without lymphadenopathy or meningismus. RESPIRATORY: Lungs clear and equal. CARDIOVASCULAR: Regular rate and rhythm. GI/ABDOMEN: Soft and nontender. No organomegaly or pulsatile mass. No rebound or guarding. Normal bowel sounds. EXTREMITIES: Warm and well perfused. Erythema, swelling, and tenderness in the area of the IP joint of the left thumb. BACK: No CVA tenderness. NEUROLOGICAL: Intact without focal deficits. PSYCHIATRIC: normal affect. MUSCULOSKELETAL: Normally developed with good muscle tone. Medical Decision & Procedures ER Provider Diagnostic Interpretation: X ray results and stated below per my interpretation and radiology interpretation. LEFT THUMB 3 VIEWS HISTORY: left thumb redness/swelling/pain no trauma COMPARISON: None. FINDINGS: No acute fracture or dislocation within the left thumb. Severe cartilage space narrowing with [id number] articulation and large dorsal osteophytes at the interphalangeal joint of the thumb. This is consistent with osteoarthritis. No bony destruction to suggest an osteomyelitis. There is moderate osteoarthritis at the first MCP joint and moderate to severe osteoarthritis at the first carpometacarpal joint. No radiopaque foreign bodies. Diffuse soft tissue swelling. IMPRESSION: 1. No acute fracture or dislocation within the left thumb. 2. Advanced osteoarthritis as described above. 3. Diffuse soft tissue swelling within the left thumb. Electronically signed by: Shailesh Leblanc M.D. 05/05/2018 8:45 AM Dictated Date/Time: 05/05/2018 8:43 AM ED Course 0815: Previous medical records were reviewed. The patient was evaluated in room A9B. A complete history and physical examination was performed. 0918: On reevaluation, the patient is resting comfortably. I discussed the results and findings with the patient. She verbalized agreement of the treatment plan. She was discharged home. Medical Decision Differential diagnosis: injury, gout, arthritis, infection. This is a 72-year-old female who presents to the ED with a chief complaint of left thumb pain. The patient states that she awoke with it this morning. She denied having any issues last night. She does not recall any specific trauma. The patient's exam reveals some redness as well as some tenderness and swelling to the IP joint of the left thumb. No other abnormalities noted. Patient was noted to have hypertension. She will be referred her PCP for further evaluation of this. X-rays of the left thumb reveal advanced osteoarthritis and soft tissue swelling. The patient was told the results of the test. She was advised to take ibuprofen and Tylenol as needed for the pain. She did not want any stronger pain medicine. She is felt to be stable for discharge. Medication Reconcilliation Current Medication List: was personally reviewed by me Blood Pressure Screening Patient's blood pressure: Elevated blood pressure Blood pressure disposition: Referred to PCP Impression Primary Impression: Inflammatory osteoarthritis Scribe Attestation The scribe's documentation has been prepared under my direction and personally reviewed by me in its entirety. I confirm that the note above accurately reflects all work, treatment, procedures, and medical decision making performed by me. Departure Information Dispostion Home / Self-Care Referrals Yuri Fregoso MD (PCP) Patient Instructions My [facility], Osteoarthritis Additional Instructions Your x-ray did not reveal any fractures or broken bones in her thumb. You do have advanced osteoarthritis. This is likely the cause for your inflammation. Take Tylenol/Motrin as needed for discomfort. Follow-up with your doctor for further care and evaluation in 1-7 days. Return to the emergency department for worsening or new symptoms or any concerns. You have been examined and treated today on an emergency basis only. This is not a substitute for, or an effort to provide, complete comprehensive medical care. It is impossible to recognize and treat all injuries or illnesses in a single emergency department visit. It is therefore important that you follow up closely with your doctor. Call as soon as possible for an appointment.
[2018-05-05 09:24] VITALS: BP 182/82; PULSE 70; O2SAT 96
== END 2018-05-05 09:28 | disposition home or self-care (01) ==
LOC: C.EDB 08:04 → C.EDA 09:28
DX: M19.90 Unspecified osteoarthritis, unspecified site (principal); M79.645 Pain in left finger(s); J45.909 Unspecified asthma, uncomplicated; K76.9 Liver disease, unspecified; J44.9 Chronic obstructive pulmonary disease, unspecified; I10 Essential (primary) hypertension; Z88.0 Allergy status to penicillin

== ENCOUNTER 2018-11-18 10:10 | Inpatient (IN) ==
[2018-11-18] MEDS ORDERED: SODIUM CHLORIDE 0.9% 500 ML IV SCH (10:45)
[2018-11-18 10:48] LABS: Appearance Urine Clear (Clear); Bilirubin Urine Negative (Negative); Color Urine Yellow; Glucose Urine UA 3+ (Negative); Ketones Urine Negative (Negative); Leukocyte Esterase Urine Negative (Negative); Nitrite Urine Negative (Negative); Protein Urine Negative (Negative); Specific Gravity Urine 1.034 (1.000-1.030); Urobilinogen Urine Negative (Negative)
--- NOTE | 2018-11-18 11:00 | XRay Report ---
XR chest 1V portable CLINICAL HISTORY: weakness COMPARISON STUDY: 10/26/2017 FINDINGS: Interval development of a small right infrahilar infiltrate. Lungs otherwise appear clear. Diaphragms smooth. IMPRESSION: Small right infrahilar parenchymal infiltrate. The above report was generated using voice recognition software. It may contain grammatical, syntax or spelling errors. Electronically signed by: Amado John M.D. 11/18/2018 10:59 AM
[2018-11-18 11:02] LABS: Basophils # (auto) 0.02 K/uL (0-0.2); Basophils % (auto) 0.3 %; Eosinophils # (auto) 0.13 K/uL (0-0.5); Eosinophils % (auto) 2.1 %; Hemoglobin 15.2 g/dL (12.0-16.0); Immature Granulocytes # (auto) 0.02 K/uL (0.00-0.02); Immature Granulocytes % (auto) 0.3 %; Lymphocytes # (auto) 2.24 K/uL (1.2-3.4); Lymphocytes % (auto) 36.4 %; Mean Corpuscular Volume 90.9 fL (80-100); Mean Platelet Volume 11.6 fL (7.4-10.4); Monocytes # (auto) 0.62 K/uL (0.11-0.59); Monocytes % (auto) 10.1 %; Neutrophils # (auto) 3.12 K/uL (1.4-6.5); Neutrophils % (auto) 50.8 %; Platelet Count 188 K/uL (130-400); RDW Standard Deviation 42.9 fL (36.4-46.3); Red Blood Count 5.06 M/uL (4.2-5.4); White Blood Count 6.15 K/uL (4.8-10.8)
[2018-11-18 11:29] LABS: Alanine Aminotransferase 28 U/L (12-78); Albumin Level 3.1 gm/dl (3.4-5.0); Aspartate Aminotransferase 20 U/L (15-37); Blood Urea Nitrogen 9 mg/dl (7-18); Calcium 8.6 mg/dl (8.5-10.1); Carbon Dioxide 32 mmol/L (21-32); Chloride 101 mmol/L (98-107); Creatinine Clr Calc Pharmacy 48.9 ml/min; Est GFR (African American) 70.6; Est GFR (Non-African American) 60.9; Glucose 467 mg/dl (70-99); Magnesium 1.7 mg/dl (1.8-2.4); Sodium 135 mmol/L (136-145)
[2018-11-18] MEDS ORDERED: MAGNESIUM OXIDE 400 MG TAB PO STA (11:30)
[2018-11-18] MEDS ORDERED: SODIUM CHLORIDE 0.9% 500 ML IV STA (11:30)
[2018-11-18 11:31] LABS: Albumin Globulin Ratio 0.7 (0.9-2); Alkaline Phosphatase 86 U/L (45-117); Bilirubin,Total 0.5 mg/dl (0.2-1); Globulin 4.2 gm/dl (2.5-4.0); Total Protein 7.3 gm/dl (6.4-8.2); Troponin I < 0.015 ng/ml (0-0.045)
--- NOTE | 2018-11-18 11:41 | CT Scan Report ---
CT abd pelvis wo con CT DOSE: HISTORY: Pain. Nausea. poss divertic or colitis TECHNIQUE: Multiaxial CT images of the abdomen and pelvis were performed without contrast. A dose lo wering technique was utilized adhering to the principles of ALARA. COMPARISON STUDY: 03/12/2015 FINDINGS: Minimal dependent basilar atelectasis. Mild fatty replacement of the liver. Stable lower po le left renal cyst. No evidence renal hydronephrosis. Mild perinephric infiltrative change of the kidneys bilaterally unaltered from the prior study. This is therefore considered a chronic finding. Pancreas is unremarkable. Bowel pattern is considered nonobstructive. Unchanging lipoma of the uterine fundus. Normal appendix. IMPRESSION: 1. No acute process of the abdomen or pelvis. 2. Mild fatty replacement of liver. 3. Stable lipoma of the uterine fundus. The above report was generated using voice recognition software. It may contain grammatical, syntax or spelling errors. Electronically signed by: Amado John M.D. 11/18/2018 11:39 AM
--- NOTE | 2018-11-18 11:44 | CT Scan Report ---
CT OF THE HEAD WITHOUT CONTRAST CLINICAL HISTORY: Confusion. COMPARISON STUDY: Head CT November 05, 2016. CT DOSE: 1969.09 mGy.cm TECHNIQUE: Helical axial images of the head were obtained without IV contrast. Automated exposure con trol was utilized for the study. A dose lowering technique was utilized adhering to the principles o f ALARA. FINDINGS: No acute intracranial hemorrhage, midline shift or mass effect is present. Ventricular syst em is stable. Basilar cisterns are patent. There are no extra-axial collections. Gomez-white different iation is maintained. There are no findings to suggest acute dural sinus thrombosis or acute territor ial infarct. There are no significant calvarial abnormalities. IMPRESSION: No acute intracranial findings. Electronically signed by: Jose Daniel Ennis M.D. 11/18/2018 11:43 AM
[2018-11-18] MEDS: NovoLIN-R INSULIN PER UNIT CHARGE IV STA ×2 (11:53→12:21)
[2018-11-18] MEDS ORDERED: HydrALAZINE HCL 20 MG/ML VIAL IV STA (12:22)
[2018-11-18] MEDS ORDERED: cefTRIAXone SODIUM 1,000 MG/50 ML BAG IV STA (12:22)
--- NOTE | 2018-11-18 14:05 | History & Physical Report ---
Date of Service November 18, 2018 Assessment & Plan (1) Swallowing difficulty: Present with Lump in the left submandibular area Denies any SOB CT soft neck done on 11/16 showed findings consistent with a mild sialadenitis of the right submandibular gland with surrounding inflammatory change Was discharge on clindamycin on 11/16 from the ER Received Rocephin IV in the ER Will continue rocephin for now Will get an u/s of the neck (2) Uncontrolled diabetes mellitus: (3) Hyperglycemia: Last Hba1c 11.2 on 02/18 BS on admission above 400's Received IV regular insulin 10 units in the ER Refused DM meds Pt understood the risk for refusing med such as organs failure such as kidney, heart. That can lead to ESRD and HD, Heart attack, blindness and stoke Will start on novololog slidding scale Check HBa1c Diabetic education Continue monitor BS (4) Low back pain: Stable On percocet at home prn (5) Major depression: Feeling depressed with suicidal ideation Pt has a plan (overdose with her percocet) but does not have the courage to do it Refused psych med Will consult psych will monitor her closely (6) Hypertensive urgency: BP on admission 199/116 on admission Not on any BP meds because pt has been refused antihypertensive med from her PCP Received hydralazine 10mg IV in the ER Will start on Lisinopril 10mg Will add clinidine prn Monitor BP closely Check BMP in am DVT px on heparin subq CODE Status FUll code Disposition Follow up appointment with PCP Dr. Fregoso on 11/21 @ 1PM History of Present Illness Chief Complaint: Difficulty to swallow due to Lump in Left throat Primary Care Provider: Yuri Fregoso MD 72 year old female with PMH of DM type 2, depression, HTN, OA, hx breast ca present to the ER with difficulty to swallow due to lump feels in Left side of throat. She said that she noticed the lump on Wednesday night. She was in the ER on Wednesday and had a CT soft tissue neck done that showed findings are consistent with a mild sialadenitis of the right submandibular gland with surrounding inflammatory change. Mildly enlarged right submandibular and cervical chain lymph nodes are likely on a reactive basis. She was discharged on clindamycin. Pt is back today because the lump still there. She denies any pain with swallowing or SOB. She said that food takes longer for her to swallow. She also feels depressed. She said that she does not have any reason to live because she lost 2 husbands and 2 sons. She said that only family member she has is her sister that just moved away from this town. She said that she knows how to end her life by using her percocet that she has to overdose; but she said that she does not have the courage to commit suicide. Pt refused to take any medication for her depression. She said that she was in drug rehab back in the 80's. She also refused to take any medication for diabetes and HTN. Her last HBA1c was 11.2 back in 02/14/18. She said that her BS usually runs in the 300's. Denies any chest pain , palpitation, dizziness, SOB, fever. Allergies Allergy/AdvReac Type Severity Reaction Status Date / Time amoxicillin Allergy Unknown childhood Verified 11/18/18 10:39 allergy Penicillins Allergy Unknown HAPPENED Verified 11/18/18 10:39 A CHILD Home Medications Home Medications Medication Instructions Recorded Confirmed Type clindamycin HCl 150 mg PO Q6H 7 Days #28 cap 11/16/18 11/18/18 Rx oxybutynin chloride 10 mg PO QDL 11/16/18 11/18/18 History methenamine hippurate 1 g PO HS 11/18/18 11/18/18 History oxycodone-acetaminophen 1 tab PO Q8H PRN 11/18/18 11/18/18 History Past Med/Surg History Medical History Hypertension (Chronic) Low back pain (Acute) Lymphadenopathy of right cervical region (Acute) Sialadenitis (Acute) Sialoadenitis (Acute) Diabetes (Chronic) Surgical History History of bilateral mastectomy (Resolved 04/03/13) Social History Current Living Situation: Alone Feels Safe at Home: Yes Smoking Status: Former smoker Review of Systems All systems reviewed & are unremarkable except as noted in HPI & below Physical Exam 2 Vital Signs (Past 24 Hours): Last Vital Signs Temp 36.9 C 11/18/18 10:18 Pulse 98 H 11/18/18 13:19 Resp 16 02/15/19 13:19 BP 188/115 H 11/18/18 13:19 Pulse Ox 92 11/18/18 10:18 Physical Exam: General- No acute distress Head- atraumatic Eyes- PERRL, EOMI, ENT- Left lump in the submandibular area, uvula midline, no tonsils exudate Neck- supple, no JVD Lungs- clear to auscultation Heart- regular rhythm; no murmur Abdomen- normal bowel sounds, soft, nontender Extremities- no calf tenderness Neuro- alert, oriented x 3; PERRL, EOMI; no facial palsy; no dysarthria Skin- warm & dry Results & Data Diagnostic Findings CT abd pelvis wo con CT DOSE: HISTORY: Pain. Nausea. poss divertic or colitis TECHNIQUE: Multiaxial CT images of the abdomen and pelvis were performed without contrast. A dose lowering technique was utilized adhering to the principles of ALARA. COMPARISON STUDY: 03/12/2015 FINDINGS: Minimal dependent basilar atelectasis. Mild fatty replacement of the liver. Stable lower pole left renal cyst. No evidence renal hydronephrosis. Mild perinephric infiltrative change of the kidneys bilaterally unaltered from the prior study. This is therefore considered a chronic finding. Pancreas is unremarkable. Bowel pattern is considered nonobstructive. Unchanging lipoma of the uterine fundus. Normal appendix. IMPRESSION: 1. No acute process of the abdomen or pelvis. 2. Mild fatty replacement of liver. 3. Stable lipoma of the uterine fundus. The above report was generated using voice recognition software. It may contain grammatical, syntax or spelling errors. Electronically signed by: Amado John M.D. 11/18/2018 11:39 AM Dictated: 11/18/18 1136 Transcribed: 11/18/18 1136 XR chest 1V portable CLINICAL HISTORY: weakness COMPARISON STUDY: 10/26/2017 FINDINGS: Interval development of a small right infrahilar infiltrate. Lungs otherwise appear clear. Diaphragms smooth. IMPRESSION: Small right infrahilar parenchymal infiltrate. The above report was generated using voice recognition software. It may contain grammatical, syntax or spelling errors. Electronically signed by: Amado John M.D. 11/18/2018 10:59 AM Dictated: 11/18/18 1057 Transcribed: 11/18/[address] OF THE HEAD WITHOUT CONTRAST CLINICAL HISTORY: Confusion. COMPARISON STUDY: Head CT November 05, 2016. CT DOSE: 1969.09 mGy.cm TECHNIQUE: Helical axial images of the head were obtained without IV contrast. Automated exposure control was utilized for the study. A dose lowering technique was utilized adhering to the principles of ALARA. FINDINGS: No acute intracranial hemorrhage, midline shift or mass effect is present. Ventricular system is stable. Basilar cisterns are patent. There are no extra-axial collections. Gomez-white differentiation is maintained. There are no findings to suggest acute dural sinus thrombosis or acute territorial infarct. There are no significant calvarial abnormalities. IMPRESSION: No acute intracranial findings. Electronically signed by: Jose Daniel Ennis M.D. 11/18/2018 11:43 AM Dictated: 11/18/18 1136 Transcribed: 11/18/[address] SCAN OF THE NECK WITH IV CONTRAST CLINICAL HISTORY: Right-sided swelling. COMPARISON STUDY: CT angiogram of the neck dated 03/18/2018. TECHNIQUE: Following the IV administration of 93 cc of Optiray 320, CT scan of the soft tissues of the neck was performed from the skull base to the upper chest. Images are reviewed in the axial, sagittal, and coronal planes. IV contrast was administered without complication. A dose lowering technique was utilized adhering to the principles of ALARA. CT DOSE: 408.43 mGy.cm FINDINGS: Pharynx: The nasopharynx, oropharynx, and laryngeal pharynx are normal in appearance. The pharyngeal airway is widely patent. There is no evidence of mass lesion. The vocal cords are symmetric. The parapharyngeal fat is well maintained. The prevertebral/retropharyngeal soft tissues are within normal limits. The epiglottis is normal. Lymphadenopathy: There are prominent right submandibular lymph nodes which measure up to 13 mm in length. Prominent right cervical lymph nodes measure up to 1.5 cm in length as seen on image #256. Thyroid: Normal in size and attenuation. Salivary glands: The right submandibular gland appears heterogeneous and hyperemic, with mild surrounding inflammatory change in the superficial and deep soft tissues. The left submandibular gland and the parotid glands are normal in appearance. No calcified sialoliths are clearly identified. Brain parenchyma: The visualized brain parenchyma at the skull base is normal in appearance. Vascular structures: The carotid arteries and jugular veins are patent bilaterally. Atherosclerotic calcification is noted in the carotid bulbs, and the carotid arteries take a medial course. There is less than 50% stenosis of the left subclavian artery below the thoracic inlet. Skeletal structures: The skeletal structures are osteopenic. Imaged portions of the calvarium at the skull base are within normal limits. The cervical spine appears intact noting moderate multilevel spondylosis. No lytic or blastic lesion is identified. Sinuses and mastoids: The paranasal sinuses are clear. The mastoid air cells are well pneumatized. Orbits: The bony orbits are intact. Orbital contents are normal in appearance noting bilateral ocular lens implants. Lung apices: Visualized apical lung parenchyma is clear. IMPRESSION: 1. Findings are consistent with a mild sialadenitis of the right submandibular gland with surrounding inflammatory change. 2. Mildly enlarged right submandibular and cervical chain lymph nodes are likely on a reactive basis. 3. The pharyngeal soft tissues are normal in appearance. Electronically signed by: Ponce Scott M.D. 11/16/2018 10:09 AM Dictated: 11/16/18 0957 Transcribed: 11/16/18 0957
[2018-11-18] MEDS ORDERED: cloNIDine HCl 0.1 MG TAB PO PRN (15:11)
[2018-11-18] MEDS ORDERED: PHARMACY GLYCEMIC MGMT CONSULT PRN (15:17)
[2018-11-18] MEDS ORDERED: GLUCOSE 40% GEL 15 GM TUBE PO PRN (15:31)
[2018-11-18] MEDS ORDERED: GLUCOSE 10 TABS/TUBE PO PRN (15:31)
[2018-11-18] MEDS ORDERED: DEXTROSE 50% 50 ML SYRINGE IV PRN (15:31)
[2018-11-18] MEDS ORDERED: CARBOHYDRATES FOR HYPOGLYCEMIA PO PRN (15:31)
[2018-11-18] MEDS ORDERED: TRAMADOL/ACETAMINOPHEN 37.5/325MG TAB PO PRN (15:31)
[2018-11-18] MEDS ORDERED: GLUCAGON FOR INJ 1 MG VIAL SQ PRN (15:31)
[2018-11-18 15:57] LABS: INR 1.1 (0.9-1.1); Prothrombin Time 10.7 Seconds (9.0-12.0)
--- NOTE | 2018-11-18 16:54 | Emergency Department Note ---
Entered by Dominic Abbott acting as a scribe for History of Present Illness General Chief complaint: Illness Time Seen by Provider: 11/18/18 10:22 Source: patient Limitations: no limitations History of Present Illness Provider complaint: Fatigue Onset (ago): day(s) Pain Consistency: + other (worsening) Maximum Pain Intensity: 0 Quality: + other (Fatigue) Associated symptoms: + denies other symptoms (No falls/no urinary/no trauma/no abd pain) and + other (Diarrhea, right neck soreness); no cough, no fever/ chills and no nausea/vomiting Treatments prior to arrival: other (Antibiotic) The patient is a 73 year old female who presents to the Emergency Room with complaints of worsening fatigue over the past 2 days. The patient was seen here in the department 2 days ago for neck soreness and fatigue. She had a CT of the neck which revealed a salivary gland infection, and was discharged home with antibiotics. Today the patient is complaining of continued fatigue and adds "my thinking process is screwed up." She explains that her friend of 40 years came to her house yesterday and she was unable to remember her name when she saw her. The patient also notes that the soreness to the right side of her neck is still present. She denies any fever, cough, urinary irregularities, recent falls , or abdominal pain. The patient does note some diarrhea over the past 4-5 days and adds that she is not eating as much as she normally does. She is not nauseous and has not vomited. The patient lives alone with her dog and expresses concern that her dog does not want to sit on her lap anymore. Home Medications Home Medications Medication Instructions Recorded Confirmed Type clindamycin HCl 150 mg PO Q6H 7 Days #28 cap 11/16/18 11/18/18 Rx oxybutynin chloride 10 mg PO QDL 11/16/18 11/18/18 History methenamine hippurate 1 g PO HS 11/18/18 11/18/18 History oxycodone-acetaminophen 1 tab PO Q8H PRN 11/18/18 11/18/18 History Allergies Allergy/AdvReac Type Severity Reaction Status Date / Time amoxicillin Allergy Unknown childhood Verified 11/18/18 10:39 allergy Penicillins Allergy Unknown HAPPENED Verified 11/18/18 10:39 A CHILD Past Med/Surg History Medical History Major depression (Chronic) Uncontrolled diabetes mellitus (Chronic) Sialadenitis (Acute) Hypertension (Chronic) Low back pain (Acute) Lymphadenopathy of right cervical region (Acute) Sialadenitis (Acute) Sialoadenitis (Acute) Diabetes (Chronic) Surgical History History of bilateral mastectomy (Resolved 04/03/13) Social History Current Living Situation: Alone Other Information That Helps Us Care for You: No Feels Safe at Home: Hesitant to Answer Safety Concerns: Afraid for Self Smoking Status: Former smoker Tobacco Type: cigarettes Hx Alcohol Use: No Hx Substance Use: No Beliefs That Will Affect Care: None and Spiritual Preferred Language: Icelandic Communication Ability: Effective Clinical Immunologist Required: No Review of Systems See HPI for pertinent positives & negatives. and A total of 10 systems reviewed and were otherwise negative Physical Exam Vital Signs Vital Signs - 24 hr 11/18/18 10:18 11/18/18 11:21 11/18/18 12:11 Temperature 36.9 C Temperature Source Oral Sepsis Recent Fever Within 48 Hours No Sepsis New/Unexplained Change in Mental Status No Sepsis Action Taken by Nursing No Action Required Pulse Rate - Lying 77 Pulse Rate - Sitting 79 Pulse Rate 81 78 Pulse Rate [Apical] Pulse Rate [Brachial] Respiratory Rate 16 21 Blood Pressure - Lying 180/112 H Blood Pressure - Sitting 169/123 H Blood Pressure 177/87 H 169/123 H Blood Pressure [Right Arm] Blood Pressure Mean 117 138 Blood Pressure Mean [Right Arm] Blood Pressure Position [Right Arm] Pulse Oximetry 92 Oxygen Delivery Method Room Air 11/18/18 12:23 11/18/18 12:25 11/18/18 13:19 Temperature Temperature Source Sepsis Recent Fever Within 48 Hours Sepsis New/Unexplained Change in Mental Status Sepsis Action Taken by Nursing Pulse Rate - Lying Pulse Rate - Sitting Pulse Rate 72 80 Pulse Rate [Apical] 98 H Pulse Rate [Brachial] Respiratory Rate 20 18 16 Blood Pressure - Lying Blood Pressure - Sitting Blood Pressure 198/102 H Blood Pressure [Right Arm] 188/115 H Blood Pressure Mean 134 Blood Pressure Mean [Right Arm] 139 Blood Pressure Position [Right Arm] Pulse Oximetry Oxygen Delivery Method 11/18/18 14:30 11/18/18 15:17 11/18/18 15:55 Temperature 36.6 C 36.8 C Temperature Source Oral Oral Sepsis Recent Fever Within 48 Hours Sepsis New/Unexplained Change in Mental Status Sepsis Action Taken by Nursing Pulse Rate - Lying Pulse Rate - Sitting Pulse Rate Pulse Rate [Apical] 85 Pulse Rate [Brachial] 89 Respiratory Rate 20 16 Blood Pressure - Lying Blood Pressure - Sitting Blood Pressure Blood Pressure [Right Arm] 170/96 H 177/95 H 161/80 H Blood Pressure Mean Blood Pressure Mean [Right Arm] 120 122 107 Blood Pressure Position [Right Arm] Sitting Lying Pulse Oximetry 95 94 Oxygen Delivery Method Room Air Room Air GENERAL: Patient is in no acute distress. HEENT: No acute trauma, normocephalic atraumatic, mucous membranes moist, no nasal congestion, no scleral icterus. There is no swelling to the floor of the mouth. NECK: No stridor, no meningismus, trachea is midline. There is right cervical adenopathy which is tender to touch. No erythema. LUNGS: There are crackles present in the left lung. No wheezing. Breath sounds equal. HEART: Without murmurs gallops or rubs, regular rate and rhythm. ABDOMEN: Soft, nontender, bowel sounds positive, no hernias, no peritonitis. EXTREMITIES: No cyanosis or edema, full range of motion of all the joints without pain or difficulty, no signs for acute trauma. NEUROLOGIC: Oriented x 3, no acute motor or sensory deficits, no focal weakness. SKIN: No rash, no jaundice, no diaphoresis. RECTAL: Anal erythema noted, no obvious rectal bleeding. Course 1025: Past medical records reviewed. The patient was evaluated in room B8, and a complete history and physical examination were performed. 1222: I updated the patient at this time. She is in agreement with hospital admission. 1226: I reviewed the patient's case with Dr. Krystina Pruitt. He will evaluate the patient for further management. Consultations Consultation #1: 1226: I reviewed the patient's case with Dr. Krystina Pruitt. He will evaluate the patient for further management. Administered Medications Lisinopril (Zestril) 10 mg PO QAM [facility] Stop: 12/18/18 15:30 Last Admin: 11/18/18 16:57 Dose: 10 mg Discontinued Medications Hydralazine HCl (Hydralazine Hcl) 10 mg IV NOW STA Stop: 11/18/18 12:23 Last Admin: 02/15/19 12:36 Dose: 10 mg Sodium Chloride (Nss) 500 mls @ 999 mls/hr IV .Q31M BALDO Stop: 11/18/18 11:15 Last Infusion: 11/18/18 11:26 Dose: 0 mls/hr Admin: 11/18/18 10:55 Dose: 999 mls/hr Sodium Chloride (Nss) 500 mls @ 999 mls/hr IV .Q31M STA Stop: 11/18/18 12:00 Last Infusion: 11/18/18 12:24 Dose: 0 mls/hr Admin: 11/18/18 11:52 Dose: 999 mls/hr Ceftriaxone Sodium (Rocephin) 1,000 mg in 50 mls @ 100 mls/hr IV NOW STA Stop: 11/18/18 12:51 Last Infusion: 11/18/18 13:06 Dose: 0 mls/hr Admin: 11/18/18 12:36 Dose: 100 mls/hr Insulin Human Regular (Novolin R U-100 Per Unit) 10 units IV NOW STA Stop: 11/18/18 11:31 Last Admin: 11/18/18 12:21 Dose: 10 units Magnesium Oxide (Mag-Ox) 400 mg PO NOW STA Stop: 11/18/18 11:31 Last Admin: 11/18/18 11:50 Dose: 400 mg Medical Decision Making Differential Diagnosis Differential Diagnosis includes: Dehydration, salivary gland infection, UTI, diverticulitis, electrolyte or metabolic abnormality, stroke, intracranial bleeding, and renal failure. Medical Records Attestation: I reviewed the patient's medical records. Home Medications Current Medication List: was personally reviewed by me Laboratory Data Attestation: I reviewed the patient's lab results. Result diagrams: 11/18/18 10:50 11/18/18 10:50 Lab Results 11/18/18 11/18/18 11/18/18 Range/Units 10:35 10:50 10:50 WBC 6.15 (4.8-10.8) K/uL RBC 5.06 (4.2-5.4) M/uL Hgb 15.2 (12.0-16.0) g/dL Hct 46.0 (37-47) % MCV 90.9 (80-100) fL MCH 30.0 (25-34) pg MCHC 33.0 (32-36) g/dL RDW Std Deviation 42.9 (36.4-46.3) fL RDW Coeff of Mariaelena 13.0 (11.5-14.5) % Plt Count 188 (130-400) K/uL MPV 11.6 H (7.4-10.4) fL Immature Gran % (Auto) 0.3 % Neut % (Auto) 50.8 % Lymph % (Auto) 36.4 % Charles % (Auto) 10.1 % Eos % (Auto) 2.1 % Baso % (Auto) 0.3 % Immature Gran # (Auto) 0.02 (0.00-0.02) K/uL Neut # (Auto) 3.12 (1.4-6.5) K/uL Lymph # (Auto) 2.24 (1.2-3.4) K/uL Charles # (Auto) 0.62 H (0.11-0.59) K/uL Eos # (Auto) 0.13 (0-0.5) K/uL Baso # (Auto) 0.02 (0-0.2) K/uL PT (9.0-12.0) Seconds INR (0.9-1.1) Sodium 135 L (136-145) mmol/L Potassium 4.0 (3.5-5.1) mmol/L Chloride 101 (98-107) mmol/L Carbon Dioxide 32 (21-32) mmol/L Anion Gap 2.0 L (3-11) BUN 9 (7-18) mg/dl Creatinine 0.92 (0.6-1.2) mg/dl Est Cr Clr Drug Dosing 48.9 ml/min Est GFR ( Amer) 70.6 Est GFR (Non-Af Amer) 60.9 BUN/Creatinine Ratio 10.0 (10-20) Glucose 467 H* (70-99) mg/dl POC Glucose (70-99) Calcium 8.6 (8.5-10.1) mg/dl Magnesium 1.7 L (1.8-2.4) mg/dl Total Bilirubin 0.5 (0.2-1) mg/dl AST 20 (15-37) U/L ALT 28 (12-78) U/L Alkaline Phosphatase 86 (45-117) U/L Troponin I < 0.015 (0-0.045) ng/ml Total Protein 7.3 (6.4-8.2) gm/dl Albumin 3.1 L (3.4-5.0) gm/dl Globulin 4.2 H (2.5-4.0) gm/dl Albumin/Globulin Ratio 0.7 L (0.9-2) Beta-Hydroxybutyric Acd 0.89 (0.2-2.81) mg/dl TSH 1.140 (0.300-4.500) uIu/ml Urine Color Yellow Urine Appearance Clear (Clear) Urine pH 5.0 (4.5-7.5) Ur Specific [place] 1.034 H (1.000-1.030) Urine Protein Negative (Negative) Urine Glucose (UA) 3+ H (Negative) Urine Ketones Negative (Negative) Urine Blood Negative (Negative) Urine Nitrite Negative (Negative) Urine Bilirubin Negative (Negative) Urine Urobilinogen Negative (Negative) Ur Leukocyte Esterase Negative (Negative) 11/18/18 11/18/18 Range/Units 10:50 13:15 WBC (4.8-10.8) K/uL RBC (4.2-5.4) M/uL Hgb (12.0-16.0) g/dL Hct (37-47) % MCV (80-100) fL MCH (25-34) pg MCHC (32-36) g/dL RDW Std Deviation (36.4-46.3) fL RDW Coeff of Mariaelena (11.5-14.5) % Plt Count (130-400) K/uL MPV (7.4-10.4) fL Immature Gran % (Auto) % Neut % (Auto) % Lymph % (Auto) % Charles % (Auto) % Eos % (Auto) % Baso % (Auto) % Immature Gran # (Auto) (0.00-0.02) K/uL Neut # (Auto) (1.4-6.5) K/uL Lymph # (Auto) (1.2-3.4) K/uL Charles # (Auto) (0.11-0.59) K/uL Eos # (Auto) (0-0.5) K/uL Baso # (Auto) (0-0.2) K/uL PT 10.7 (9.0-12.0) Seconds INR 1.1 (0.9-1.1) Sodium (136-145) mmol/L Potassium (3.5-5.1) mmol/L Chloride (98-107) mmol/L Carbon Dioxide (21-32) mmol/L Anion Gap (3-11) BUN (7-18) mg/dl Creatinine (0.6-1.2) mg/dl Est Cr Clr Drug Dosing ml/min Est GFR ( Amer) Est GFR (Non-Af Amer) BUN/Creatinine Ratio (10-20) Glucose (70-99) mg/dl POC Glucose 211 H (70-99) Calcium (8.5-10.1) mg/dl Magnesium (1.8-2.4) mg/dl Total Bilirubin (0.2-1) mg/dl AST (15-37) U/L ALT (12-78) U/L Alkaline Phosphatase (45-117) U/L Troponin I (0-0.045) ng/ml Total Protein (6.4-8.2) gm/dl Albumin (3.4-5.0) gm/dl Globulin (2.5-4.0) gm/dl Albumin/Globulin Ratio (0.9-2) Beta-Hydroxybutyric Acd (0.2-2.81) mg/dl TSH (0.300-4.500) uIu/ml Urine Color Urine Appearance (Clear) Urine pH (4.5-7.5) Ur Specific [place] (1.000-1.030) Urine Protein (Negative) Urine Glucose (UA) (Negative) Urine Ketones (Negative) Urine Blood (Negative) Urine Nitrite (Negative) Urine Bilirubin (Negative) Urine Urobilinogen (Negative) Ur Leukocyte Esterase (Negative) Imaging Data Attestation: I personally reviewed and interpreted this imaging study as follows : Radiologist's Impression: CT abd pelvis wo con CT DOSE: HISTORY: Pain. Nausea. poss divertic or colitis TECHNIQUE: Multiaxial CT images of the abdomen and pelvis were performed without contrast. A dose lowering technique was utilized adhering to the principles of ALARA. COMPARISON STUDY: 03/12/2015 FINDINGS: Minimal dependent basilar atelectasis. Mild fatty replacement of the liver. Stable lower pole left renal cyst. No evidence renal hydronephrosis. Mild perinephric infiltrative change of the kidneys bilaterally unaltered from the prior study. This is therefore considered a chronic finding. Pancreas is unremarkable. Bowel pattern is considered nonobstructive. Unchanging lipoma of the uterine fundus. Normal appendix. IMPRESSION: 1. No acute process of the abdomen or pelvis. 2. Mild fatty replacement of liver. 3. Stable lipoma of the uterine fundus. The above report was generated using voice recognition software. It may contain grammatical, syntax or spelling errors. Electronically signed by: Amado John M.D. 11/18/2018 11:39 AM XR chest 1V portable CLINICAL HISTORY: weakness COMPARISON STUDY: 10/26/2017 FINDINGS: Interval development of a small right infrahilar infiltrate. Lungs otherwise appear clear. Diaphragms smooth. IMPRESSION: Small right infrahilar parenchymal infiltrate. The above report was generated using voice recognition software. It may contain grammatical, syntax or spelling errors. Electronically signed by: Amado John M.D. 11/18/2018 10:[address] OF THE HEAD WITHOUT CONTRAST CLINICAL HISTORY: Confusion. COMPARISON STUDY: Head CT November 05, 2016. CT DOSE: 1969.09 mGy.cm TECHNIQUE: Helical axial images of the head were obtained without IV contrast. Automated exposure control was utilized for the study. A dose lowering technique was utilized adhering to the principles of ALARA. FINDINGS: No acute intracranial hemorrhage, midline shift or mass effect is present. Ventricular system is stable. Basilar cisterns are patent. There are no extra-axial collections. Gomez-white differentiation is maintained. There are no findings to suggest acute dural sinus thrombosis or acute territorial infarct. There are no significant calvarial abnormalities. IMPRESSION: No acute intracranial findings. Electronically signed by: Jose Daniel Ennis M.D. 11/18/2018 11:43 AM ECG Data Attestation: I personally reviewed and interpreted this ECG as follows: Indication: weakness Rate (beats per minute): 79 Rhythm: normal sinus Findings: + nonspecific-ST abn; no PVC and no ST elevation Blood Pressure Blood Pressure Findings: Elevated blood pressure Blood Pressure Disposition: further management by hospitalist IONA Macias There is no leukocytosis or worrisome anemia. Renal panel testing shows a sugar at over 400. No kidney failure. No hepatitis. Magnesium was low at 1.7. EKG shows a sinus rhythm, no acute ischemia. Cardiac enzyme testing x1 is not consistent with acute cardiac injury. The patient appeared to be in a euthyroid state. Urinalysis shows glucose, no infection. Chest film does showed possible atelectasis versus a small pneumonia-I presume this is atelectasis as the patient has not been coughing, she has not had respiratory symptoms. Brain CT shows no acute bleed or mass-effect. Abdominal and pelvis CT does not show any acute surgical process. There was no bowel obstruction. No diverticulitis or colitis. The patient presents with weakness and fatigue. She has a sialadenitis on the right. She is on clindamycin but this has not made her feel any better. She does seem dehydrated, she is hyperglycemic. She is quite hypertensive as well. The patient was given IV saline, IV insulin. She received IV ceftriaxone as antibiotic coverage. She was given oral magnesium and received IV hydralazine. Patient requires a hospital stay. She has failed outpatient treatment. I did speak to the patient and case management. The on-call hospitalist was consulted. Impression & Plan Hyperglycemia, Sialadenitis, Dehydration, Hypertensive urgency, Failure of outpatient treatment Discharge Plan Visit Data *Final* Discharge Date/Time: 11/18/18 14:24 Chief Complaint: Illness ED Provider: Ponce Verdin Discharge Problem: Hyperglycemia, Sialadenitis, Dehydration, Hypertensive urgency, Failure of outpatient treatment Patient Disposition: Admitted As Inpatient Discharge Instructions Interventions: ED Discharge Assessment Last Done: 11/18/18 14:24 The scribe's documentation has been prepared under my direction and personally reviewed by me in its entirety. I confirm that the note above accurately reflects all work, treatment, procedures, and medical decision making performed by me.
[2018-11-18] MEDS: LISINOPRIL 10 MG TAB PO SCH (16:57)
[2018-11-18] MEDS ORDERED: INSULIN GLARGINE SOLOSTAR 100 UNITS/ML 3 ML PEN SC ONE (17:00)
--- NOTE | 2018-11-18 17:08 | Ultrasound Report ---
US soft tissue head and neck CLINICAL HISTORY: left submandibular lump COMPARISON STUDY: CT scan dated 11/16/2018 FINDINGS: The patient states that the left mandibular lump is no longer present, and there is now evidence for a right submandibular lump. Bilateral cervical lymph nodes are visualized. The largest is located on the right measuring 16 x 15 x 9 mm. This node demonstrates a thickened cortex, and likely corresponds to the enlarged lymph node s described on the prior CT scan. Given the suspected prior sialadenitis, the nodes are likely reacti ve. Clinical follow-up will be necessary. IMPRESSION: 1. Mildly prominent cervical lymph nodes. The patient reports a new palpable abnormality within the r ight neck. This corresponds to a 16 x 15 x 9 mm lymph node demonstrating a thickened cortex. This sarahi ears to correlate with the mildly enlarged lymph nodes described on the recent CT scan. Electronically signed by: Deandre Phillip M.D. 11/18/2018 5:06 PM
[2018-11-18] MEDS: INSULIN ASPART 100 UNITS/ML 3 ML PEN SC SCH ×3 (18:29→23:20)
[2018-11-18] MEDS ORDERED: LIDOCAINE HCL 2% JELLY 30ML TUBE EXT PRN (19:06)
[2018-11-18] MEDS: HEPARIN SOD 5,000 UNIT/0.5 ML VIAL SQ SCH (23:03)
[2018-11-19] MEDS: INSULIN ASPART 100 UNITS/ML 3 ML PEN SC SCH ×3 (03:38→11:52)
[2018-11-19] MEDS: HEPARIN SOD 5,000 UNIT/0.5 ML VIAL SQ SCH (04:20)
[2018-11-19 06:47] LABS: Estimated Average Glucose 341 mg/dl
[2018-11-19] MEDS: LISINOPRIL 10 MG TAB PO SCH (07:43)
[2018-11-19] MEDS ORDERED: INSULIN GLARGINE SOLOSTAR 100 UNITS/ML 3 ML PEN SC SCH ×2 (09:30→21:00)
--- NOTE | 2018-11-19 09:37 | Pharmacy Report ---
Glycemic Control Consultation - Date of Service November 19, 2018 - Scope Scope: Glycemic Pharmacist consulted by Dr Purvis on 11/18 for glycemic control and to write orders per [facility] inpatient glycemic control protocol - Objective Weight: 82.3 kg Accuchecks BSG (last 24hrs): 11/18/18 11/18/18 11/18/18 10:50 13:15 18:25 Glucose 467 H* POC Glucose 211 H 277 H Laboratory Data (last 24hrs): 11/18/18 10:50 Potassium 4.0 Carbon Dioxide 32 Anion Gap 2.0 L Creatinine 0.92 Est Cr Clr Drug Dosing 48.9 Beta-Hydroxybutyric Acd 0.89 HbA1c: Hemoglobin A1c 13.5 % (4.5-5.6) H 11/18/18 10:50 - Assessment & Plan Assessment & Plan: ASSESSMENT: * Patient not currently on outpatient diabetes medications, A1c 13.5% indicates patient with very poor control * 467 on admission received 10 units regular IV in ED and a 15 unit lantus dose yesterday, since these doses patient has been refusing insulin * Spoke with nurse, patient refusing some oral medications as well * Will continue current orders with addition of conservative weight based scheduled lantus * Will continue to follow for now but may need to sign off if patient continues to refuse care PLAN FOR INPATIENT GLYCEMIC CONTROL: * Basal insulin * Lantus 10/15 units SQ BID on scale * Bolus insulin * NovoLog per scale ACHS or Q6hrs while NPO * Goal Range: Low 120 mg/dL - High 160 mg/dL * Correction Factor: 25 mg/dL/unit * Nutritional / Prandial insulin per carb ratio of 1 unit per 9 grams CHO consumed * Please note that the plan above was derived based on current level of insulin resistance and hospital stress. These recommendations are appropriate for inpatient admission only. Plan of care upon discharge will need to be reassessed to avoid potential outpatient hypo/hyperglycemia. Thank you.
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
[2018-11-19] MEDS ORDERED: SERTRALINE HCL 50 MG TABLET PO ONE (10:55)
[2018-11-19] MEDS ORDERED: OXYBUTYNIN CHLORIDE XL 5 MG TABCR PO SCH (11:30)
[2018-11-19] MEDS ORDERED: cefTRIAXone SODIUM 1,000 MG in SODIUM CHLOR 0.9% AD-VAN 50 ML IV SCH (12:00)
--- NOTE | 2018-11-19 12:26 | Discharge Summary ---
Date of Service November 19, 2018 Admission HPI Per Admitting Provider Per admission H&P: 72 year old female with PMH of DM type 2, depression, HTN, OA , hx breast ca present to the ER with difficulty to swallow due to lump feels in Left side of throat. She said that she noticed the lump on Wednesday night. She was in the ER on Wednesday and had a CT soft tissue neck done that showed findings are consistent with a mild sialadenitis of the right submandibular gland with surrounding inflammatory change. Mildly enlarged right submandibular and cervical chain lymph nodes are likely on a reactive basis. She was discharged on clindamycin. Pt is back today because the lump still there. She denies any pain with swallowing or SOB. She said that food takes longer for her to swallow. She also feels depressed. She said that she does not have any reason to live because she lost 2 husbands and 2 sons. She said that only family member she has is her sister that just moved away from this town. She said that she knows how to end her life by using her percocet that she has to overdose; but she said that she does not have the courage to commit suicide. Pt refused to take any medication for her depression. She said that she was in drug rehab back in the 80's. She also refused to take any medication for diabetes and HTN. Her last HBA1c was 11.2 back in 02/14/18. She said that her BS usually runs in the 300's. Denies any chest pain , palpitation, dizziness, SOB, fever. On psychiatric interview, patient acknowledges onset of depression in her early 30s following the of her first and bankruptcy soon after. She attempted to drive her car off of [facility] in a suicide attempt and was hospitalized for 2 years in the [facility] ultimately improving with 5 treatments of ECT. She believes she may have been on Prozac and 3 other psychotropic medications following discharge which she overused. She describes essentially taking which she felt like she needed on any given day and was somehow able to obtain early refills easily to the point that she became dependent and required rehab at [facility]. She does report that, while being treated with the medications, she was able to work for 10 years and seemingly did glean some mood benefit. She denies that her depression has been persistent over the years and indicates that she does have times when she feels quite good, typically this is when she is busy. 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 She recently got a new dog who she feels responsible for and actually brings as a therapy dog during her volunteer work. She does acknowledge chronic wish and admits that her reluctance to accept medical treatment for her diabetes and hypertension may well be a means to shorten the duration of her life however she does not describe active suicidal intent and indicates that she is simply too busy with her activities to do that. She denies a specific plan for self-harm and denies taking steps towards an act of self-harm. She is able to look forward to visits from her sister and continuing in her activities and denies feeling hopeless as long as she stays busy. Additionally her fear of accidentally injuring herself in a suicide attempt is voiced as a barrier to attempting self- harm. Secondary to her history of feeling overmedicated during her psychiatric stay in the past she has been very reluctant to consider return to any kind of mental health treatment. Notably her mood baseline has declined following the of her eldest son in July who due to brain cancer which was rapidly progressive. 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 She describes him as a constant support in her life and would call her every morning between 730 and 8 AM in the absence of his calls contributes to her loneliness and sadness. She describes recently diminished appetite and weight loss but denies sleep disturbance, difficulty with concentration, hallucinations, paranoia, delusions. Admission Exam Per Admitting Provider General- No acute distress Head- atraumatic Eyes- PERRL, EOMI, ENT- Left lump in the submandibular area, uvula midline, no tonsils exudate Neck- supple, no JVD Lungs- clear to auscultation Heart- regular rhythm; no murmur Abdomen- normal bowel sounds, soft, nontender Extremities- no calf tenderness Neuro- alert, oriented x 3; PERRL, EOMI; no facial palsy; no dysarthria Skin- warm & dry Principal Diagnosis Sialoadenitis Obesity with a BMI of 38 Accelerated hypertension Diabetes Hyperglycemia Dysphagia Discharge Data Allergies Allergy/AdvReac Type Severity Reaction Status Date / Time amoxicillin Allergy Unknown childhood Verified 11/18/18 10:39 allergy Penicillins Allergy Unknown HAPPENED Verified 11/18/18 10:39 A CHILD Consultations 11/18/18 12:27 ED Decision to Admit Stat 11/18/18 16:46 Consult Psychiatry Routine Ordered Studies 11/18/18 10:34 CT head/brain wo con Stat 11/18/18 10:37 CT abd pelvis wo con Stat 11/18/18 15:12 US soft tissue head and neck Routine Hospital Course (1) Swallowing difficulty: Present with Lump in the left submandibular area Denies any SOB CT soft neck done on 11/16 showed findings consistent with a mild sialadenitis of the right submandibular gland with surrounding inflammatory change Was discharge on clindamycin on 11/16 from the ER Received Rocephin IV in the ER Will continue rocephin for now Will get an u/s of the neck (2) Uncontrolled diabetes mellitus: (3) Hyperglycemia: Last Hba1c 11.2 on 02/18 BS on admission above 400's Received IV regular insulin 10 units in the ER Refused DM meds Pt understood the risk for refusing med such as organs failure such as kidney, heart. That can lead to ESRD and HD, Heart attack, blindness and stoke Will start on novololog slidding scale Check HBa1c Diabetic education Continue monitor BS (4) Low back pain: Stable On percocet at home prn (5) Major depression: Feeling depressed with suicidal ideation Pt has a plan (overdose with her percocet) but does not have the courage to do it Refused psych med Will consult psych will monitor her closely (6) Hypertensive urgency: BP on admission 199/116 on admission Not on any BP meds because pt has been refused antihypertensive med from her PCP Received hydralazine 10mg IV in the ER Will start on Lisinopril 10mg Will add clinidine prn Monitor BP closely Check BMP in am DVT px on heparin subq CODE Status FUll code Disposition Follow up appointment with PCP Dr. Fregoso on 11/21 @ 1PM Total Time Total Time Spent Total Time Spent (In Minutes): 50 mins Discharge Plan Discharge Items Patient Disposition: Home - Self-Care Reason For Visit: DIFFICULTY TO SWALLOW DUE TO LUMP IN LEFT SIDE OF Discharge Diagnosis: Sialoadenitis Obesity with a BMI of 38 Accelerated hypertension Diabetes Hyperglycemia Dysphagia Discharge Goals: Improve function Activity: Resume your previous activity Lifting: Gradually increase as tolerated Bathing: No limitations Sexual Activity: When tolerated Exercise/Sports: Gradually increase as tolerated Driving/Machine Use: No limitations Weightbearing: Left weightbearing and Right weightbearing Non-emergency contact: Primary Care Provider Call non-emergency contact if: you have any medication questions Follow-up/Referrals: Yuri Fregoso MD [Primary Care Provider] - (Caqll Dr Fregoso's Office Wednesday and ask for first opening, I was unable to reach the appt line, No Answer) Diet: Carb Consistent or DM2 and Heart Healthy Addtl Provider Instructions: f/u on resolution of Sialoadenitis Prescriptions: New insulin glargine [Lantus Solostar U-100 Insulin] 100 unit/mL (3 mL) Insulin Pen 15 unit SC BID Qty: 15 RF: 0 cefuroxime axetil 500 mg tablet 500 mg PO BID 7 Days Qty: 14 RF: 0 Continue methenamine hippurate 1 gram tablet 1 g PO HS RF: 0 oxycodone-acetaminophen 5-325 mg Tablet 1 tab PO Q8H PRN (Reason: Pain) RF: 0 oxybutynin chloride 10 mg tablet extended release 24hr 10 mg PO QDL RF: 0 Discontinued clindamycin HCl 150 mg capsule 150 mg PO Q6H 7 Days Qty: 28 RF: 0 Stand-Alone Forms: [facility] Discharge Orders: Discharge Order (Routine); Ordered 11/19/18 Ordered By: Bruce Caraballo Admission Data Admit Date/Time: 11/18/18 13:43 Attending Provider: Bruce Caraballo Admit Provider: Erik Purvis Primary Care Provider: Yuri Fregoso Other Providers: Erik Purvis ; Carleen Cannon Service: Medical
[2018-11-20] MEDS ORDERED: SERTRALINE HCL 50 MG TABLET PO SCH (09:00)
== END 2018-11-19 12:59 | disposition home or self-care (01) | DRG 155 ==
LOC: ED 10:10 → 4E 13:43 → SUATTDRO 13:43 → 4E 14:24

== ENCOUNTER 2019-06-04 13:13 | Inpatient (IN) ==
[2019-06-04] MEDS ORDERED: SODIUM CHLORIDE 0.9% 500 ML IV ONE (14:14)
--- NOTE | 2019-06-04 14:43 | XRay Report ---
XR chest 1V portable HISTORY: Atypical Chest Pain COMPARISON: Chest 11/18/2018. FINDINGS: Mild perihilar interstitial thickening. This is likely chronic. No evidence for pulmonary e elham. No pleural effusions. No pneumothorax. No new focal lung consolidations to suggest pneumonia. T he heart is normal in size. IMPRESSION: No acute process. Electronically signed by: Shailesh Leblanc M.D. 06/04/2019 2:42 PM
[2019-06-04 14:48] LABS: Basophils # (auto) 0.01 K/uL (0-0.2); Basophils % (auto) 0.1 %; Eosinophils # (auto) 0.07 K/uL (0-0.5); Eosinophils % (auto) 0.6 %; Hemoglobin 14.9 g/dL (12.0-16.0); Immature Granulocytes # (auto) 0.03 K/uL (0.00-0.02); Immature Granulocytes % (auto) 0.2 %; Lymphocytes % (auto) 22.8 %; Mean Corpuscular Hemoglobin 30.5 pg (25-34); Mean Corpuscular Hgb Conc 33.9 g/dL (32-36); Mean Corpuscular Volume 90.2 fL (80-100); Mean Platelet Volume 11.1 fL (7.4-10.4); Monocytes # (auto) 1.07 K/uL (0.11-0.59); Monocytes % (auto) 8.7 %; Neutrophils # (auto) 8.28 K/uL (1.4-6.5); Neutrophils % (auto) 67.6 %; Platelet Count 213 K/uL (130-400); RDW Coefficient of Variation 12.9 % (11.5-14.5); RDW Standard Deviation 42.5 fL (36.4-46.3); Red Blood Count 4.88 M/uL (4.2-5.4); White Blood Count 12.26 K/uL (4.8-10.8)
[2019-06-04 15:09] LABS: Alanine Aminotransferase 25 U/L (12-78); Albumin Level 3.1 gm/dl (3.4-5.0); Aspartate Aminotransferase 20 U/L (15-37); Blood Urea Nitrogen 11 mg/dl (7-18); Calcium 9.2 mg/dl (8.5-10.1); Carbon Dioxide 33 mmol/L (21-32); Chloride 99 mmol/L (98-107); Creatinine Clr Calc Pharmacy 54.5 ml/min; Est GFR (African American) 84.9; Est GFR (Non-African American) 73.2; Glucose 136 mg/dl (70-99); Lipase 43 U/L (73-393); Potassium 4.3 mmol/L (3.5-5.1); Sodium 137 mmol/L (136-145)
[2019-06-04 15:14] LABS: Albumin Globulin Ratio 0.7 (0.9-2); Alkaline Phosphatase 111 U/L (45-117); Bilirubin,Total 0.9 mg/dl (0.2-1); Globulin 4.6 gm/dl (2.5-4.0); Phosphorus 2.9 mg/dl (2.5-4.9); Total Protein 7.7 gm/dl (6.4-8.2); Troponin I < 0.015 ng/ml (0-0.045)
[2019-06-04] MEDS ORDERED: ALBUT/IPRATROP 3MG/0.5MG NEB 3 ML VIAL NEB STA (16:29)
[2019-06-04] MEDS ORDERED: DEXAMETHASONE SOD PHOSPHATE 10 MG in SYRINGE 0 ML IV STA (16:29)
[2019-06-04 17:37] LABS: Appearance Urine Clear (Clear); Bacteria Urine Automated Negative (Negative); Bilirubin Urine Negative (Negative); Blood Urine Negative (Negative); Cast Urine Automated 0 /lpf (0-5); Color Urine Yellow; Epithelial Cell Urine Auto >30 /lpf (0-5); Glucose Urine UA Negative (Negative); Ketones Urine Trace (Negative); Leukocyte Esterase Urine Trace (Negative); Nitrite Urine Negative (Negative); Protein Urine Negative (Negative); RBC Urine Automated 0-4 /hpf (0-4); Specific Gravity Urine 1.008 (1.000-1.030); Urobilinogen Urine Negative (Negative); pH Urine 6.5 (4.5-7.5)
[2019-06-04] MEDS ORDERED: DOXYCYCLINE HYCLATE 100 MG CAP PO STA (18:16)
[2019-06-04] MEDS ORDERED: ONDANSETRON INJ 2 MG/ML 2 ML VIAL IV PRN (20:23)
[2019-06-04] MEDS ORDERED: NITROGLYCERIN SL 0.4 MG/TAB TAB SL PRN (20:23)
[2019-06-04] MEDS ORDERED: cloNIDine HCl 0.1 MG TAB PO PRN (20:23)
[2019-06-04] MEDS ORDERED: ALBUT/IPRATROP 3MG/0.5MG NEB 3 ML VIAL NEB PRN (20:23)
[2019-06-04] MEDS ORDERED: ACETAMINOPHEN 325 MG TAB PO PRN (20:23)
[2019-06-04] MEDS ORDERED: CARBOHYDRATES FOR HYPOGLYCEMIA PO PRN (20:30)
[2019-06-04] MEDS ORDERED: DEXTROSE 50% 50 ML SYRINGE IV PRN (20:30)
[2019-06-04] MEDS ORDERED: GLUCOSE 10 TABS/TUBE PO PRN (20:30)
[2019-06-04] MEDS ORDERED: GLUCOSE 40% GEL 15 GM TUBE PO PRN (20:30)
[2019-06-04] MEDS ORDERED: GLUCAGON FOR INJ 1 MG VIAL IM PRN (20:30)
--- NOTE | 2019-06-04 20:47 | History and Physical Report ---
DATE OF ADMISSION: 06/04/2019 CHIEF COMPLAINT: Cough and dysphagia. HISTORY OF PRESENT ILLNESS: This is a 73-year-old female with past medical history significant for type 2 diabetes, hypertension, hyperlipidemia, COPD, history of osteoarthritis, history of manic depression, suicidal ideation, history of kidney stones, history of opioid abuse, history of tobacco abuse, history of breast cancer, presents with ongoing cough and dysphagia. The patient lives alone. She says has aid who helps with cleaning up the house. She ambulates with a walker. She was here in the hospital in November with feeling of lump in her throat and discharged on antibiotics, at that time CAT scan of soft tissue of neck showed some mild sialadenitis of the right mandibular lymph nodes. During that admission, she had suicidal ideation, seen by psychiatry and she was refusing psych medications and she has history of diabetes and hypertension, but refusing taking medication, but she says now she is taking a pill for diabetes, but she does not want to take any blood pressure medication, even though explained risk of stroke or heart attack. The patient says since last 2 days, she is having dry cough and she is also having dysphagia for solids, so she came to the ER. In the ER, she was treated with dexamethasone ,nebs but her oxygen saturation was 88% on room air, so we called for admission. She was given a dose of doxycycline p.o. for bronchitis. Has some dizziness, but denies any headache, no blurred vision, no runny nose, no sore throat, no chest pain. She does not feel any short of breath, no nausea, no vomiting, no abdominal pain. Normal bowel and bladder movements. No blood in the stool or black stools, no hematuria, no burning micturition, no swelling in the legs, no rash. Currently resting comfortably and hemodynamically stable. No thoughts of hurting herself. ALLERGIES: PENICILLINS. PAST MEDICAL HISTORY: As mentioned above. PAST SURGICAL HISTORY: History of bilateral mastectomy. MEDICATIONS: As per the patient, she is on glimepiride 2 mg daily, Januvia 100 mg daily, oxybutynin XL 50 mg p.o. daily, Percocet 5/325 mg 1 tablet p.o. 8 hours p.r.n., methenamine hippurate one tablet at bedtime. FAMILY HISTORY: Noncontributory. SOCIAL HISTORY: Lives alone. Former smoker. REVIEW OF SYMPTOMS: As per HPI. Rest of the review of systems negative. PHYSICAL EXAMINATION: GENERAL: The patient is of moderate build, not in acute distress. VITAL SIGNS: Temperature 36.9, pulse 86, respiratory rate 20, blood pressure 117/70, oxygen 96% room air. HEENT: No pallor, no icterus. Pupils equal, round, and reactive to light. NECK: No JVD, no neck masses, no carotid bruits. CARDIOVASCULAR: S1, S2 heard, regular rate and rhythm, no murmur, no gallop. RESPIRATORY SYSTEM: Normal AP diameter. No accessory muscle use. No wheezing, no crackles. ABDOMEN: Soft, bowel sounds present. Nontender. No distention. CENTRAL NERVOUS SYSTEM: Cranial nerves II-XII grossly intact. Nonfocal. EXTREMITIES: No edema. LABORATORY DATA: WBC 12.3, hemoglobin 14.9, hematocrit 44, platelets 213. Sodium 137, potassium 4.3, chloride 99, bicarbonate 33, BUN 11, creatinine 0.7, serum glucose 136, calcium 9.2, phosphorus 2.9, magnesium 2, total bilirubin 0.9, AST 20, ALT 25, alkaline phosphatase 111. Troponin I less than 0.015, lipase 43. Urinalysis, trace leukocyte esterase. Chest x-ray, no acute process seen. EKG: Normal sinus rhythm, rate of 77, no significant change from previous EKG. ASSESSMENT AND PLAN: This is a 73-year-old female who presents with cough and dysphagia. 1. Cough and hypoxia. Saturating 88% on room air in the ER. Saturating ok with 2 liters oxygen. Chest x-ray unremarkable,. No sputum. History of smoking in the past. On exam, no wheezing or crackles, .Bronchitis? Given a dose of doxycycline in ER. We will place on Levaquin and DuoNeb p.r.n. and monitor. 2. Dysphagia to solids. Recently admitted in November of this year and underwent soft tissue scan showing sialadenitis of right mandibular gland. Antibiotics, placed on Levaquin. We will follow the soft tissue CT scan of the neck and also will consult GI for any oesophageal stenosis. Monitor on the medical floor. We will keep her on clear liquid diet for now and n.p.o. after midnight. 3. Diabetes, poorly controlled, noncompliant. Last admission, she refused any medication, but she says now she takes a pill. As per EPIC, she is on glimepiride and Januvia. As per the last PCP notes, they are going to start metformin. We will place her on insulin sliding scale. Follow HbA1c. Will follow the blood sugars in the hospital. 4. History of hypertension, refused taking any medications, placed on clonidine p.r.n. for now. 5. Urinary incontinence, on Ditropan XL. 6. Hyperlipidemia, not on medication. We will follow her fasting lipid profile. 7. History of manic depression, history of suicidal ideation in the past, seen by psych at last admission. Currently, she does not have any thoughts to hurt herself. Denies taking any medications. 8. History of breast cancer, bilateral mastectomy, follows with Hematology/Oncology. 9. History of chronic obstructive pulmonary disease, currently not on any inhalers, currently stable. 10. Deep venous thrombosis prophylaxis, sequential compression devices for now. 11. Disposition: Monitor in the Med/Surg tele. Code status DNR as per my discussion with the patient . Lives alone. PT and OT prior to discharge. Social Service to help with discharge planning. SHENG
[2019-06-04] MEDS ORDERED: INSULIN ASPART 100 UNITS/ML 3 ML PEN SC SCH (21:00)
[2019-06-04] MEDS: SODIUM CHLORIDE 0.9% 1000ML 1,000 ML IV SCH (21:34)
[2019-06-04] MEDS ORDERED: IOVERSOL 100ml IV PRN (21:55)
--- NOTE | 2019-06-04 22:11 | CT Scan Report ---
CT soft tissue neck w con HISTORY: dysphagia TECHNIQUE: Multiaxial CT images of the neck were performed following the use of intravenous contrast. COMPARISON STUDY: Neck CT 01/16/2019. FINDINGS: The visualized lung apices are clear. No suspicious lytic are blastic osseous lesions. The nasal sinuses and mastoid air cells are clear. The visualized brain parenchyma and orbits are unremar kable. The major mucosal airways services are intact. Prevertebral soft tissues and the epiglottis ar e normal in thickness. The thyroid gland enhances normally. The salivary glands are symmetric. Decrea se in size in a prominent left jugulodigastric lymph nodes. No cervical lymphadenopathy. The submandi bular lymph nodes are normal in size. The pterygopalatine fossa and parapharyngeal fat spaces are thierno ntained. No abscess or mass identified within the neck. Mild to moderate degenerative changes within the temporomandibular joints. The major cervical vessels appear patent. Medial deviation of the commo n carotid and right internal carotid arteries again noted. IMPRESSION: 1. Decrease in size in the prominent left jugulodigastric lymph node seen on the prior study. No cerv ical lymphadenopathy. 2. The airway remains patent. No soft tissue swelling, abscess, or mass identified within the neck. Electronically signed by: Shailesh Leblanc M.D. 06/04/2019 10:10 PM
[2019-06-04] MEDS: levoFLOXacin 500 MG TAB PO SCH (23:52)
[2019-06-05] MEDS ORDERED: Nursing to Pharmacy Communication ONE ×2 (01:16→13:59)
--- NOTE | 2019-06-05 03:12 | Emergency Department Note ---
Entered by Esther Cuevas acting as a scribe for Kush Jolly MD History of Present Illness General Chief complaint: Illness Stated complaint: DIZZINESS, SORE THROAY, COUGH Time Seen by Provider: 06/04/19 14:00 Source: patient History of Present Illness Provider complaint: cough Onset (ago): day(s) (several ) Location: chest Pain Consistency: + other (worsening) Relieved By: + none Associated symptoms: + other (-burning during urination, +lightheaded); no chest pain, no fever/chills and no nausea/vomiting The patient is a 73 year old female who presents to the Emergency Room with complaints of a worsening cough. The patient reports that she has had a cough for the past several days. She notes that she is lightheaded. She state that her throat feels tight. She denies bringing anything up during her cough. She denies any chest pain, nausea, vomiting, diarrhea, fever, chills, or burning during urination. The patient states that she has a history of difficulty swallowing, but notes that this is not related. Home Medications Home Medications Medication Instructions Recorded Confirmed Type methenamine hippurate 1 g PO HS 11/18/18 06/04/19 History oxycodone-acetaminophen 1 tab PO Q8H PRN 11/18/18 06/04/19 History oxybutynin chloride 15 mg PO DAILY 04/05/19 06/04/19 History Januvia 100 mg PO DAILY 06/04/19 06/04/19 History glimepiride 2 mg PO DAILY 06/04/19 06/04/19 History Allergies Allergy/AdvReac Type Severity Reaction Status Date / Time amoxicillin Allergy Unknown childhood Verified 06/04/19 14:37 allergy Penicillins Allergy Unknown HAPPENED Verified 06/04/19 14:37 A CHILD Past Med/Surg History Medical History Major depression (Chronic) Uncontrolled diabetes mellitus (Chronic) Hypertension (Chronic) Low back pain (Acute) Lymphadenopathy of right cervical region (Acute) Sialadenitis (Acute) Sialoadenitis (Acute) Diabetes (Chronic) Sialadenitis (Inactive) No pertinent family history Surgical History History of bilateral mastectomy (Resolved 04/03/13) Family History Other No pertinent family history Social History Preferred Language: Guyanese Communication Ability: Effective Early Intervention Specialist Required: No Beliefs That Will Affect Care: None Current Living Situation: Alone Other Information That Helps Us Care for You: No Feels Safe at Home: Yes Safety Concerns: Feels Safe At This Time Smoking Status: Former smoker Tobacco Type: cigarettes ; Do You Dip or Chew Tobacco: No ; Second Hand Exposure: No ; Tobacco Cessation Education Requested by Patient: No Hx Alcohol Use: No Hx Substance Use: No Review of Systems See HPI for pertinent positives & negatives. and A total of 10 systems reviewed and were otherwise negative Physical Exam Vital Signs Vital Signs - 24 hr 06/04/19 13:33 06/04/19 16:03 06/04/19 16:09 Temperature 36.9 C Temperature Source Oral Sepsis Recent Fever Within 48 Hours No Sepsis New/Unexplained Change in Mental Status No Sepsis Action Taken by Nursing No Action Required Oxygen Flow Rate - Titration 2 Pulse Oximetry Post Tiitration 94 Pulse Rate 80 Pulse Rate [Apical] 76 Pulse Rhythm [Apical] Regular Pulse Strength Normal Pulse Strength [Apical] Normal Respiratory Rate 20 20 Respiratory Effort / Characteristics Non-Labored Spontaneous Non-Labored Spontaneous Respiratory Depth Normal Normal Respiratory Pattern Regular Blood Pressure 110/70 Blood Pressure [Left Arm] 157/92 H Blood Pressure Mean 83 Blood Pressure Mean [Left Arm] 113 Blood Pressure Position Sitting Pulse Oximetry 93 87 L 86 L Oxygen Delivery Method Room Air Room Air Room Air Oxygen Flow Rate 06/04/19 16:44 06/04/19 17:08 06/04/19 17:09 Temperature Temperature Source Sepsis Recent Fever Within 48 Hours Sepsis New/Unexplained Change in Mental Status Sepsis Action Taken by Nursing Oxygen Flow Rate - Titration Pulse Oximetry Post Tiitration Pulse Rate Pulse Rate [Apical] 77 77 Pulse Rhythm [Apical] Pulse Strength Pulse Strength [Apical] Respiratory Rate 14 18 Respiratory Effort / Characteristics Non-Labored Spontaneous Non-Labored Respiratory Depth Normal Respiratory Pattern Regular Blood Pressure Blood Pressure [Left Arm] 172/85 H Blood Pressure Mean Blood Pressure Mean [Left Arm] 114 Blood Pressure Position Pulse Oximetry 95 95 93 Oxygen Delivery Method Nasal Cannula Nasal Cannula Nasal Cannula Oxygen Flow Rate 2 2 2 06/04/19 17:15 06/04/19 17:20 06/04/19 18:46 Temperature Temperature Source Sepsis Recent Fever Within 48 Hours Sepsis New/Unexplained Change in Mental Status Sepsis Action Taken by Nursing Oxygen Flow Rate - Titration Pulse Oximetry Post Tiitration Pulse Rate Pulse Rate [Apical] 86 Pulse Rhythm [Apical] Pulse Strength Pulse Strength [Apical] Respiratory Rate 20 Respiratory Effort / Characteristics Non-Labored Respiratory Depth Normal Respiratory Pattern Regular Blood Pressure Blood Pressure [Left Arm] 170/79 H Blood Pressure Mean Blood Pressure Mean [Left Arm] 109 Blood Pressure Position Pulse Oximetry 85 L 94 96 Oxygen Delivery Method Room Air Nasal Cannula Room Air Oxygen Flow Rate 2 GENERAL: Awake, alert, fatigued-appearing, in no distress HENT: Normocephalic, atraumatic. Oropharynx with dry mucous membranes and otherwise unremarkable. EYES: Normal conjunctiva. Sclera non-icteric. NECK: Supple. No nuchal rigidity. FROM. No JVD. RESPIRATORY: Scant intermittent wheeze, otherwise clear. CARDIAC: Regular rate, normal rhythm. Extremities warm and well perfused. Pulses equal. ABDOMEN: Soft, non-distended. No tenderness to palpation. No rebound or guarding. No masses. RECTAL: Deferred. MUSCULOSKELETAL: Chest examination reveals no tenderness. The back is symmetr ical on inspection without obvious abnormality. There is no CVA tenderness to palpation. No joint edema. LOWER EXTREMITIES: Calves are equal size bilaterally and non-tender. No edema. No discoloration. NEURO: Normal sensorium. No sensory or motor deficits noted. Cerebellar function intact, including finger to nose, alternating palms, heel to barr. 5/5 strength and SILT x4 extremities. SKIN: No rash or jaundice noted. Course 1413:The patient was evaluated in room C8, and a complete history and physical examination were performed. 1640: I reevaluated the patient and updated her on her results. 182: I discussed the patient's case with Dr. Abad [facility] Hospitalist, he will accept the patient for further evaluation. Administered Medications Sodium Chloride (Nss 1000ml) 1,000 mls @ 80 mls/hr IV .[id number] BALDO Stop: 07/04/19 20:22 Last Admin: 06/04/19 21:34 Dose: Not Given Documented by: [id number] Ioversol (Optiray 320 100ml) 94 ml IV ONCE PRN PRN Reason: Interaction Checking Stop: 06/08/19 21:54 Last Admin: 06/04/19 21:56 Dose: 94 ml Documented by: [id number] Levofloxacin (Levaquin) 500 mg PO DAILY@1100 [facility] Stop: 06/11/19 22:59 Last Admin: 06/04/19 23:52 Dose: 500 mg Documented by: [id number] Discontinued Medications Albuterol (Duoneb) 3 ml NEB NOW STA Stop: 06/04/19 16:30 Last Admin: 06/04/19 16:44 Dose: 3 ml Documented by: [id number] Doxycycline Hyclate (Vibramycin) 100 mg PO NOW STA Stop: 06/04/19 18:17 Last Admin: 06/04/19 18:45 Dose: 100 mg Documented by: [id number] Sodium Chloride (Nss) 500 mls @ 999 mls/hr IV .Q31M ONE Stop: 06/04/19 14:44 Last Infusion: 06/04/19 16:45 Dose: 0 mls/hr Documented by: [id number] Admin: 06/04/19 16:00 Dose: 999 mls/hr Documented by: [id number] Dexamethasone Sodium Phosphate (10 mg/ Syringe) 2.5 mls @ 1 mls/min IV NOW STA Stop: 06/04/19 16:31 Last Admin: 06/04/19 17:03 Dose: 1 mls/min Documented by: [id number] Insulin Aspart (Novolog Flexpen) 0 units SC ACHS [facility] Stop: 07/04/19 20:59 Last Admin: 06/04/19 21:34 Dose: Not Given Documented by: [id number] Medical Decision Making Differential Diagnosis Differential diagnosis: Etiologies such as infections, reactive airway disease, pneumonia, pneumothorax, COPD, CHF, cardiac ischemia, pulmonary embolism, musculoskeletal, gastrointestinal, as well as others were entertained. Medical Records Attestation: I reviewed the patient's medical records. Home Medications Current Medication List: was personally reviewed by me Laboratory Data Attestation: I reviewed the patient's lab results. Result diagrams: 06/04/19 14:32 06/04/19 14:32 Lab Results 06/04/19 06/04/19 06/04/19 Range/Units 14:32 14:32 17:19 WBC 12.26 H (4.8-10.8) K/uL RBC 4.88 (4.2-5.4) M/uL Hgb 14.9 (12.0-16.0) g/dL Hct 44.0 (37-47) % MCV 90.2 (80-100) fL MCH 30.5 (25-34) pg MCHC 33.9 (32-36) g/dL RDW Std Deviation 42.5 (36.4-46.3) fL RDW Coeff of Mariaelena 12.9 (11.5-14.5) % Plt Count 213 (130-400) K/uL MPV 11.1 H (7.4-10.4) fL Immature Gran % (Auto) 0.2 % Neut % (Auto) 67.6 % Lymph % (Auto) 22.8 % Prentiss % (Auto) 8.7 % Eos % (Auto) 0.6 % Baso % (Auto) 0.1 % Immature Gran # (Auto) 0.03 H (0.00-0.02) K/uL Neut # (Auto) 8.28 H (1.4-6.5) K/uL Lymph # (Auto) 2.80 (1.2-3.4) K/uL Prentiss # (Auto) 1.07 H (0.11-0.59) K/uL Eos # (Auto) 0.07 (0-0.5) K/uL Baso # (Auto) 0.01 (0-0.2) K/uL Sodium 137 (136-145) mmol/L Potassium 4.3 (3.5-5.1) mmol/L Chloride 99 (98-107) mmol/L Carbon Dioxide 33 H (21-32) mmol/L Anion Gap 6.0 (3-11) BUN 11 (7-18) mg/dl Creatinine 0.79 (0.6-1.2) mg/dl Est Cr Clr Drug Dosing 54.5 ml/min Est GFR ( Amer) 84.9 Est GFR (Non-Af Amer) 73.2 BUN/Creatinine Ratio 14.0 (10-20) Glucose 136 H (70-99) mg/dl Calcium 9.2 (8.5-10.1) mg/dl Phosphorus 2.9 (2.5-4.9) mg/dl Magnesium 2.0 (1.8-2.4) mg/dl Total Bilirubin 0.9 (0.2-1) mg/dl AST 20 (15-37) U/L ALT 25 (12-78) U/L Alkaline Phosphatase 111 (45-117) U/L Troponin I < 0.015 (0-0.045) ng/ml Total Protein 7.7 (6.4-8.2) gm/dl Albumin 3.1 L (3.4-5.0) gm/dl Globulin 4.6 H (2.5-4.0) gm/dl Albumin/Globulin Ratio 0.7 L (0.9-2) Lipase 43 L (73-393) U/L Urine Color Yellow Urine Appearance Clear (Clear) Urine pH 6.5 (4.5-7.5) Ur Specific [place] 1.008 (1.000-1.030) Urine Protein Negative (Negative) Urine Glucose (UA) Negative (Negative) Urine Ketones Trace H (Negative) Urine Blood Negative (Negative) Urine Nitrite Negative (Negative) Urine Bilirubin Negative (Negative) Urine Urobilinogen Negative (Negative) Ur Leukocyte Esterase Trace H (Negative) Urine WBC (Auto) 1-5 (0-5) /hpf Urine RBC (Auto) 0-4 (0-4) /hpf U Hyaline Cast (Auto) 0 (0-5) /lpf U Epithel Cells (Auto) >30 H (0-5) /lpf Urine Bacteria (Auto) Negative (Negative) Imaging Data Radiologist's Impression: Radiology results as stated below per my review and the radiologist's interpretation: XR chest 1V portable HISTORY: Atypical Chest Pain COMPARISON: Chest 11/18/2018. FINDINGS: Mild perihilar interstitial thickening. This is likely chronic. No evidence for pulmonary edema. No pleural effusions. No pneumothorax. No new focal lung consolidations to suggest pneumonia. The heart is normal in size. IMPRESSION: No acute process. Electronically signed by: Shailesh Leblanc M.D. 06/04/2019 2:42 PM ECG Data Attestation: I personally reviewed and interpreted this ECG as follows: Indication: SOB/dyspnea Rate (beats per minute): 77 Rhythm: normal sinus Findings: + other (QRS 120, no specific interventricular conductor delay) and + left axis deviation; no acute ischemic change Comparison ECG Date: from (11/18/18) Change: no significant change (QRA of 120) Blood Pressure Blood Pressure Findings: Elevated blood pressure Blood Pressure Disposition: further management by hospitalist IONA Narrative The patient is a pleasant 73 y/o woman with a pmhx of NIDDM2 who presents to the emergency department with cough and SOB over the past several days per HPI. On arrival the patient is in NAD, AFVSS. Patient appears clinically dry. Scant intermittent wheeze, otherwise clear. Initially O2 sat low 90s on RA but then developing hypoxia to 88%. EKG without overt acute ischemia. CXR without focal infiltrates but with likely chronic perihilar interstitial thickening. WBC 12.2, nonspecific. H/H and platelets wnl. Chemistry without acidosis. Electrolytes and LFTs unremarkable. Troponin negative. UA negative for infection. Patient treated with duoneb and dexamethasone however upon ambulatory trial again became dsypneic with O2 sat 88% on RA. Thus given patient's hypoxia reasonable to admit for further management. Patient agreeable with this. Will treat with Doxycycline for bronchitis. Case was discussed with Dr. Fair, [facility] hospitalist, who will evaluate the patient for admission. Impression & Plan Bronchitis, Hypoxia Discharge Plan Visit Data *Final* Discharge Date/Time: 06/04/19 20:13 Chief Complaint: Illness Stated Complaint: DIZZINESS, SORE THROAY, COUGH ED Provider: Kush Jolly Discharge Problem: Bronchitis, Hypoxia Patient Disposition: Admitted As Inpatient Discharge Instructions Interventions: ED Discharge Assessment Last Done: 06/04/19 20:13 The scribe's documentation has been prepared under my direction and personally reviewed by me in its entirety. I confirm that the note above accurately reflects all work, treatment, procedures, and medical decision making performed by me.
[2019-06-05 05:23] LABS: Hematocrit (blood only) 42.8 % (37-47); Hemoglobin 14.8 g/dL (12.0-16.0); Immature Granulocytes # (auto) 0.04 K/uL (0.00-0.02); Immature Granulocytes % (auto) 0.4 %; Lymphocytes # (auto) 1.13 K/uL (1.2-3.4); Lymphocytes % (auto) 10.2 %; Mean Corpuscular Hemoglobin 31.2 pg (25-34); Mean Corpuscular Hgb Conc 34.6 g/dL (32-36); Mean Corpuscular Volume 90.3 fL (80-100); Mean Platelet Volume 10.6 fL (7.4-10.4); Monocytes % (auto) 0.9 %; Neutrophils # (auto) 9.83 K/uL (1.4-6.5); Neutrophils % (auto) 88.5 %; Platelet Count 214 K/uL (130-400); RDW Standard Deviation 42.8 fL (36.4-46.3); Red Blood Count 4.74 M/uL (4.2-5.4)
[2019-06-05 05:39] LABS: BUN Creatinine Ratio 20.1 (10-20); Calcium 8.9 mg/dl (8.5-10.1); Creatinine Clr Calc Pharmacy 56.6 ml/min; Est GFR (African American) 88.9; Est GFR (Non-African American) 76.7; Magnesium 2.1 mg/dl (1.8-2.4); Potassium 4.7 mmol/L (3.5-5.1)
[2019-06-05] MEDS: INSULIN ASPART 100 UNITS/ML 3 ML PEN SC SCH ×4 (06:21→22:08)
[2019-06-05 07:17] LABS: Estimated Average Glucose 312 mg/dl; Hemoglobin A1C 12.5 % (4.5-5.6)
[2019-06-05] MEDS: SODIUM CHLORIDE 0.9% 1000ML 1,000 ML IV SCH ×2 (07:48→22:08)
--- NOTE | 2019-06-05 09:14 | History & Physical Report ---
Date of Service June 05, 2019 History of Present Illness Chief Complaint: Dysphagia 73 yo fm with a history of psychiatric issues as noted in H and P, diabetes, prior sialadentis, breast cancer, admitted overnite through the ER for cough and hypoxia. GI consulted for reports of dysphagia. Primarily reports of dysphagia to solids, tolerating liquids and likes ice cream. Dysphagia is described as intermittent primarily to solids sometimes to pills. Not associated with weight loss (though she wishes that were the case), no alarm symptoms like associated odynophagia or new anemia), no prior radiation. No weight loss. No vomiting, no episodes of hematemesis. Recent mandibular infections treated. Primary Care Provider: Yuri Fregoso MD Allergies Allergy/AdvReac Type Severity Reaction Status Date / Time amoxicillin Allergy Unknown childhood Verified 06/04/19 14:37 allergy Penicillins Allergy Unknown HAPPENED Verified 06/04/19 14:37 A CHILD Home Medications Home Medications Medication Instructions Recorded Confirmed Type methenamine hippurate 1 g PO HS 11/18/18 06/04/19 History oxycodone-acetaminophen 1 tab PO Q8H PRN 11/18/18 06/04/19 History oxybutynin chloride 15 mg PO DAILY 04/05/19 06/04/19 History Januvia 100 mg PO DAILY 06/04/19 06/04/19 History glimepiride 2 mg PO DAILY 06/04/19 06/04/19 History Past Med/Surg History Medical History Major depression (Chronic) Uncontrolled diabetes mellitus (Chronic) Hypertension (Chronic) Low back pain (Acute) Lymphadenopathy of right cervical region (Acute) Sialadenitis (Acute) Sialoadenitis (Acute) Diabetes (Chronic) Sialadenitis (Inactive) No pertinent family history Surgical History History of bilateral mastectomy (Resolved 04/03/13) Family History Other No pertinent family history Social History Preferred Language: Libyan Communication Ability: Effective Director Of Database Marketing Required: No Beliefs That Will Affect Care: None Current Living Situation: Alone Other Information That Helps Us Care for You: No Feels Safe at Home: Yes Safety Concerns: Feels Safe At This Time Smoking Status: Former smoker Tobacco Type: cigarettes ; Do You Dip or Chew Tobacco: No ; Second Hand Exposure: No ; Tobacco Cessation Education Requested by Patient: No Hx Alcohol Use: No Hx Substance Use: No Review of Systems All systems reviewed & are unremarkable except as noted in HPI & below Physical Exam Physical Exam: Well nourished female in nad Eyes: PERRL, conjunctivae normal, anicteric sclerae Respiratory: normal respiratory effort, lungs clear to auscultation Gastrointestinal (Abdomen): normal bowel sounds, soft, nontender, no hepatosplenomegaly Skin: no rashes, warm and dry Neurologic: PERRL, EOMI, accommodation nl, no face palsy, no dysarthria Results & Data Vital Signs (Past 12 Hours) Vital Signs Temp Pulse Resp BP Pulse Ox 06/05/19 07:15 36.6 C 84 18 145/76 H 91 06/05/19 04:00 36.7 C 83 19 121/66 91 06/04/19 23:55 36.5 C 90 16 134/89 93 Labs reviewed: Wbc 11.10 Hgb 14.8 Hct 42 Plt 214 Na 137 K 4.7 Cl 100 Co2 30 Bun 15 Cr 0.[address] performed Blood cultures pending Code Status & VTE Plan VTE Prophylaxis Plan VTE Prophylaxis will be ordered: Yes Supervising Physician Co-Signing Physician Notes 73 yo fm admitted through the ER overnite with cough and also reports of intermittent dysphgia for the past 6 months. She has had prior sialadenitis treated with abx, allergies to amoxicillin and pcn. Admitted with cough and mild hypoxia. Also reporting dysphagia for which GI is consulted by Dr. Napoleon Fair. Given intermittent solid dysphagia without alarm symptoms, she can have liquid today. IV PPI once today (40 mg). Npo after midnite for egd tomorrow. Hold blood thinners.
[2019-06-05] MEDS: levoFLOXacin 500 MG TAB PO SCH (11:39)
--- NOTE | 2019-06-05 17:35 | Hospitalist Progress Note ---
Date of Service June 05, 2019 Assessment & Plan (1) Bronchitis: Patient is a 73 yr female who presents with cough and dysphagia. Acute bronchitis Hypoxia CXR:No acute process. Continue levofloxacin day #2 Blood Cx:pending Continue supplemental oxygen, Nebs as needed Dysphagia Neck CT: Decrease in size in the prominent left jugulodigastric lymph node seen on the prior study. No cervical lymphadenopathy. The airway remains patent. No soft tissue swelling, abscess, or mass identified within the neck. H/O Sialadenitis of right mandibular gland. IV PPI today NPO after midnight Planned for EGD in AM Appreciate GI Input Clear liquid diet for now DM II: Poorly Controlled Hb A1C: 12.5 Hold PO meds--Januvia, glipizide Plan to be started on metformin by PCP Continue ISS, basal Insulin Monitor BGs Hypertension Currently not on any meds Clonidine as needed Monitor Urinary incontinence Continue Ditropan Hyperlipidemia Not on meds H/O manic depression H/O suicidal ideation in the past Not on meds Denies acute issues H/O Breast cancer S/P B/L mastectomy Follows with Hematology/Oncology H/O COPD Not on any inhalers No signs of acute exacerbation DVT Px: SCDs Re: Planned for EGD Code Status DNI/DNR Disposition: Expect to discharge home when stable Subjective Patient is seen and examined at bedside Reports dysphagia to solids Also reports cough with yellowish expectoration States having dizziness since beginning of URI symptoms Denies any chest pain, shortness of breath, nausea, abdominal pain No other complaints Review of Systems Review of Systems: All systems reviewed & are unremarkable except as noted in HPI & below Physical Exam Physical Exam: Physical Exam: Vitals signs as noted above General Appearance:Obese, no apparent distress Head: normocephalic, Atraumatic Eyes: normal inspection, EOMI Neck: supple, Trachea midline Respiratory/Chest: Normal breath sounds, CTA Cardiovascular: S1, S2, +systolic murmur Abdomen/GI:Soft, Non tender, Bowel sounds present Extremities/Musculoskelatal:normal inspection, no edema Neurologic/Psych:AAOX3, grossly no focal neurological deficits Skin: normal color, warm Results & Data Vital Signs (Past 12 Hours) Vital Signs Temp Pulse Resp BP Pulse Ox 06/05/19 15:09 36.9 C 88 18 143/79 H 94 06/05/19 11:34 36.7 C 75 18 158/79 H 90 06/05/19 07:15 36.6 C 84 18 145/76 H 91 Laboratory Results Short CBC 06/05/19 Range/Units 05:10 WBC 11.10 H (4.8-10.8) K/uL Hgb 14.8 (12.0-16.0) g/dL Hct 42.8 (37-47) % Plt Count 214 (130-400) K/uL BMP 06/05/19 05:10 Sodium 137 Potassium 4.7 Chloride 100 Carbon Dioxide 30 BUN 15 Creatinine 0.76 Glucose 297 H Calcium 8.9 Urine 06/04/19 Range/Units 17:19 Urine Color Yellow Urine Appearance Clear (Clear) Urine pH 6.5 (4.5-7.5) Ur Specific [place] 1.008 (1.000-1.030) Urine Protein Negative (Negative) Urine Glucose (UA) Negative (Negative)
[2019-06-05] MEDS ORDERED: PANTOprazole 40 MG in SYRINGE 0 ML IV ONE (17:45)
[2019-06-05] MEDS ORDERED: INSULIN GLARGINE SOLOSTAR 100 UNITS/ML 3 ML PEN SC SCH (21:00)
[2019-06-06] MEDS ORDERED: Nursing to Pharmacy Communication ONE ×2 (05:39→15:30)
[2019-06-06 06:00] LABS: Hematocrit (blood only) 40.7 % (37-47); Hemoglobin 13.8 g/dL (12.0-16.0); Mean Corpuscular Hemoglobin 30.4 pg (25-34); Mean Corpuscular Hgb Conc 33.9 g/dL (32-36); Mean Corpuscular Volume 89.6 fL (80-100); Mean Platelet Volume 10.8 fL (7.4-10.4); Platelet Count 243 K/uL (130-400); RDW Standard Deviation 41.8 fL (36.4-46.3); Red Blood Count 4.54 M/uL (4.2-5.4)
[2019-06-06 06:29] LABS: BUN Creatinine Ratio 26.1 (10-20); Creatinine Clr Calc Pharmacy 64.6 ml/min; Est GFR (African American) 100.2; Est GFR (Non-African American) 86.4; Potassium 4.2 mmol/L (3.5-5.1)
[2019-06-06] MEDS: INSULIN ASPART 100 UNITS/ML 3 ML PEN SC SCH ×2 (06:34→13:24)
[2019-06-06] MEDS: SODIUM CHLORIDE 0.9% 1000ML 1,000 ML IV SCH (08:27)
--- NOTE | 2019-06-06 09:02 | Gastroenterology Progress Note ---
Date of Service June 06, 2019 Assessment & Plan (1) Swallowing difficulty: 73 year old female with solids dysphagia and painful swallowing since November, NPO for EGD - NPO for EGD - Consider videos wallow pending results of EGD Thank you for allowing us to participate in the care of this patient. Please call with any acute changes, questions or concerns. Please see addendum below with additional recommendation from my supervising physician. Present on Admission?: Yes Supervising Physician Co-Signing Physician Notes Attending attestation I have seen, examined this patient, and agree with the findings and above by our mid-level provider JOANA Canas, with the following additions -Patient with odynophagia, will pursue EGD today to help in aiding the etiology of complaints. Subjective Pt was seen and evaluated, chart reviewed NPO for EGD Notes painful and difficulty swallowing since November Tolerating, soft foods prior to admission. No nausea, vomiting, GERD, weight loss No NSAIDs, ETOH, new meds Denies black/bloody stools Review of Systems Constitutional: no fever, no chills and no fatigue Respiratory: + cough; no wheezing Cardiovascular: no chest pain and no claudication Gastrointestinal: + dysphagia Physical Exam Constitutional: well developed and well nourished Respiratory: normal respiratory effort, lungs clear to auscultation Cardiovascular: RRR, no murmur, no edema Gastrointestinal (Abdomen): normal bowel sounds, soft, nontender, no hepatosplenomegaly Results & Data Vital Signs (Past 12 Hours) Vital Signs Temp Pulse Pulse Resp BP Pulse Ox 06/06/19 07:03 36.8 C 56 L 19 146/80 H 92 06/06/19 03:40 36.7 C 64 16 168/79 H 94 06/06/19 01:48 67 06/05/19 23:19 36.7 C 74 17 168/97 H 91
--- NOTE | 2019-06-06 10:36 | Anesthesiology Consultation ---
Date of Service June 06, 2019 Assessment & Plan (1) Encounter for pre-operative examination: Chart Review Chart Review: Acceptable Risk for Surgery and Patient NOT seen in Pre Admission Testing Consults Requested none History Surgery Operation Date: 06/06/19 09:00 Proposed Procedures p Esophagogastroduodenoscopy Dr Taty Posey Height/Weight Height: 4 ft 10 in Weight: 77.6 kg Allergies Allergy/AdvReac Type Severity Reaction Status Date / Time amoxicillin Allergy Unknown childhood Verified 06/06/19 10:25 allergy Penicillins Allergy Unknown HAPPENED Verified 06/06/19 10:25 A CHILD Medications Home Medications Medication Instructions Recorded Confirmed Last Taken methenamine hippurate 1 g PO HS 11/18/18 06/04/19 04/04/19 oxycodone-acetaminophen 1 tab PO Q8H PRN 11/18/18 06/04/19 02/17/19 04:30 oxybutynin chloride 15 mg PO DAILY 04/05/19 06/04/19 04/04/19 Januvia 100 mg PO DAILY 06/04/19 06/04/19 Unknown glimepiride 2 mg PO DAILY 06/04/19 06/04/19 Unknown Active Medications Generic Name Dose Route Start Last Admin Trade Name Freq PRN Reason Stop Dose Admin Sodium Chloride 1,000 mls @ 80 mls/hr 06/04/19 20:23 06/06/19 08:27 Nss 1000ml IV 07/04/19 20:22 Not Given .[id number] BALDO Insulin Aspart 0 units 06/06/19 06:00 06/06/19 06:34 Novolog Flexpen SC 07/06/19 05:59 3 units Q6 BALDO Administration Insulin Glargine 7 units 06/05/19 21:00 06/05/19 22:07 Lantus Solostar Pen SC 07/05/19 20:59 Not Given HS BALDO Ioversol 94 ml 06/04/19 21:55 06/04/19 21:56 Optiray 320 100ml IV 06/08/19 21:54 94 ml ONCE PRN Administration Interaction Checking Levofloxacin 500 mg 06/04/19 23:00 06/05/19 11:39 Levaquin PO 06/11/19 22:59 500 mg DAILY@1100 BALDO Administration NPO Date Last Intake of Fluids: 06/05/19 Time Last Intake of Fluids: 23:55 Date Last Intake of Solids: 06/04/19 Time Last Intake of Solids: 12:00 Past Medical History Medical History Major depression (Chronic) Uncontrolled diabetes mellitus (Chronic) Hypertension (Chronic) Low back pain (Acute) Lymphadenopathy of right cervical region (Acute) Sialadenitis (Acute) Sialoadenitis (Acute) Diabetes (Chronic) Sialadenitis (Inactive) No pertinent family history Past Family History Family History Other No pertinent family history Past Surgical History Surgical History History of bilateral mastectomy (Resolved 04/03/13) Social History Smoking Status: Former smoker tobacco type: cigarettes Do You Dip or Chew Tobacco: No Hx Alcohol Use: No Hx Substance Use: No Physical Exam Vital Signs Last Vital Signs Temp 36.4 C L 06/06/19 10:19 Pulse 60 06/06/19 10:19 Resp 18 06/06/19 10:19 BP 155/78 H 06/06/19 10:19 Pulse Ox 96 06/06/19 10:19 Testing Laboratory Results 06/06/19 05:23 06/06/19 05:23 Hemoglobin A1c 12.5 % (4.5-5.6) H 06/05/19 05:10 Urine Color Yellow 06/04/19 17:19 Urine Appearance Clear (Clear) 06/04/19 17:19 Urine pH 6.5 (4.5-7.5) 06/04/19 17:19 Ur Specific [place] 1.008 (1.000-1.030) 06/04/19 17:19 Urine Protein Negative (Negative) 06/04/19 17:19 Urine Glucose (UA) Negative (Negative) 06/04/19 17:19 Urine Ketones Trace (Negative) H 06/04/19 17:19 Urine Nitrite Negative (Negative) 06/04/19 17:19 Ur Leukocyte Esterase Trace (Negative) H 06/04/19 17:19 Urine WBC (Auto) 1-5 /hpf (0-5) 06/04/19 17:19 Urine RBC (Auto) 0-4 /hpf (0-4) 06/04/19 17:19 U Hyaline Cast (Auto) 0 /lpf (0-5) 06/04/19 17:19 U Epithel Cells (Auto) >30 /lpf (0-5) H 06/04/19 17:19 Urine Bacteria (Auto) Negative (Negative) 06/04/19 17:19 06/04/19 21:06 Aerobic Blood Culture - Preliminary Blood No growth in Aerobic bottle after 24 hours. Anaerobic Blood Culture - Preliminary No growth in Anaerobic bottle after 24 hours. 06/04/19 20:56 Aerobic Blood Culture - Preliminary Blood No growth in Aerobic bottle after 24 hours. Anaerobic Blood Culture - Preliminary No growth in Anaerobic bottle after 24 hours. 06/06/19 07:16 POC Glucose 167 H
[2019-06-06] MEDS ORDERED: ePHEDrine sulfate 50 MG/ML AMP IV PRN (10:40)
[2019-06-06] MEDS ORDERED: ATROPINE SULFATE 0.1 MG/ML 10ML SYR IV PRN (10:40)
--- NOTE | 2019-06-06 11:04 | GI REPORT ---
Patient Name: Walter High Procedure Date: 06/06/2019 10:44 AM Date of : 1945 Admit Type: Inpatient Age: 73 Gender: Female Attending MD: Ang Posey MD Procedure: Upper GI endoscopy Providers: Ang Posey MD Referring MD: Yevgeniy Celis Md Indications: Odynophagia Medicines: Monitored Anesthesia Care Complications: No immediate complications. Estimated blood loss: None. Estimated Blood Loss: Estimated blood loss: none. Procedure: Pre-Anesthesia Assessment: - Pre-Anesthesia Assessment: - Prior to the procedure, a History and Physical was performed, and patient medications, allergies and sensitivities were reviewed. The patient's tolerance of previous anesthesia was reviewed. Please see [employer] for complete details. - The risks and benefits of the procedure and the sedation options and risks were discussed with the patient. All questions were answered and informed consent was obtained. - Patient identification and proposed procedure were verified prior to the procedure by the physician and the nurse. The procedure was verified in the pre-procedure area in the procedure room. After obtaining informed consent, the endoscope was passed carefully and meticuously under direct vision and only advanced when the lumen was clearly identified, C02 insuflation was utilized throughout the entirity of the procedure. Throughout the procedure, the patient's blood pressure, pulse, and oxygen saturations were monitored continuously. After obtaining informed consent, the endoscope was passed under direct vision. Throughout the procedure, the patient's blood pressure, pulse, and oxygen saturations were monitored continuously. The Endoscope was introduced through the mouth, and advanced to the third part of duodenum. The upper GI endoscopy was accomplished without difficulty. The patient tolerated the procedure well. Findings: The Z-line was irregular. Biopsies were taken with a cold forceps for histology. No other significant abnormalities were identified in a careful examination of the esophagus. Diffuse moderate inflammation characterized by congestion (edema) and erythema was found in the gastric antrum. Biopsies were taken with a cold forceps for histology. The examined duodenum was normal. Impression: - Z-line irregular. Biopsied. - Gastritis. Biopsied. - Normal examined duodenum. Recommendation: - Await pathology results. - Return patient to [facility] for ongoing care. - Use Prilosec (omeprazole) 40 mg PO daily daily. - Given presence of cough and hypoxia, would work up pulmonary complaints as well as consider video swallow if swallowing difficulties persist after PPI. Ang Posey MD 06/06/2019 11:03:33 AM This report has been signed electronically. Note Initiated On: 06/06/2019 10:44 AM Number of Addenda: 0 I attest to the content of the Intraoperative Record and orders documented therein, exceptions below {[id number]}
[2019-06-06] MEDS ORDERED: PROPOFOL IV EMULSION 10 MG/ML 20 ML VIAL IV ONE (11:06)
[2019-06-06] MEDS ORDERED: LIDOCAINE HCL 2% 2 ML VIAL/AMP(20MG/ML) INFIL ONE (11:06)
--- NOTE | 2019-06-06 12:07 | Anesthesiology Progress Note ---
Date of Service June 06, 2019 Anesthesia Post Procedure Vital Signs Vital Signs: Temp Pulse Pulse Resp BP Pulse Ox 06/06/19 11:48 36.6 C 64 18 127/80 96 06/06/19 11:35 76 18 148/90 H 95 06/06/19 11:20 68 18 131/93 93 06/06/19 11:04 65 18 137/82 91 06/06/19 10:19 36.4 C L 60 18 155/78 H 96 06/06/19 07:03 36.8 C 56 L 19 146/80 H 92 06/06/19 03:40 36.7 C 64 16 168/79 H 94 06/06/19 01:48 67 06/05/19 23:19 36.7 C 74 17 168/97 H 91 06/05/19 19:39 36.8 C 78 19 145/84 H 93 06/05/19 15:09 36.9 C 88 18 143/79 H 94 Transfer of Care Handoff Completed per policy Notes Mental Status: alert / awake / arousable Patient Amnestic to Procedure: Yes Nausea / Vomiting: adequately controlled Pain: adequately controlled Airway Patency, RR, SpO2: stable & adequate BP & HR: stable & adequate Hydration State: stable & adequate Anesthetic Complications: no major complications apparent and Pt Satisfied with anesthetic care
[2019-06-06] MEDS: levoFLOXacin 500 MG TAB PO SCH (13:18)
--- NOTE | 2019-06-06 14:04 | Hospitalist Progress Note ---
Date of Service June 06, 2019 Assessment & Plan (1) Bronchitis: Patient is a 73 yr female who presents with cough and dysphagia. Acute bronchitis Hypoxia CXR:No acute process. Continue levofloxacin day #3 Blood Cx:No growth to date Continue supplemental oxygen, Nebs as needed Dysphagia Neck CT: Decrease in size in the prominent left jugulodigastric lymph node seen on the prior study. No cervical lymphadenopathy. The airway remains patent. No soft tissue swelling, abscess, or mass identified within the neck. H/O Sialadenitis of right mandibular gland. S/P EGD:Z-line irregular. Biopsied. Gastritis. Biopsied. Normal examined duodenum. Started on PPI Appreciate GI Input Advance diet as tolerated Consider video swallow if dysphagia persists DM II: Poorly Controlled Hb A1C: 12.5 Hold PO meds--Januvia, glimepiride Plan to be started on metformin by PCP Continue ISS, basal Insulin Monitor BGs Patient currently not interested in insulin therapy, metformin Agrees to be increased on dose of glimepiride upon discharge Hypertension Currently not on any meds Clonidine as needed Monitor Urinary incontinence Continue Ditropan Hyperlipidemia Not on meds H/O manic depression H/O suicidal ideation in the past Not on meds Denies acute issues H/O Breast cancer S/P B/L mastectomy Follows with Hematology/Oncology H/O COPD Not on any inhalers No signs of acute exacerbation DVT Px: Lovenox SQ Code Status DNI/DNR Disposition: Expect to discharge home when stable Subjective Patient is seen and examined at bedside Had EGD today Cough, dizziness unchanged per patient Denies any chest pain, SOB, nausea, abdominal pain No other complaints Review of Systems Review of Systems: All systems reviewed & are unremarkable except as noted in HPI & below Physical Exam Physical Exam: Physical Exam: Vitals signs as noted above General Appearance:Obese, no apparent distress Head: normocephalic, Atraumatic Eyes: normal inspection, EOMI Neck: supple, Trachea midline Respiratory/Chest: Normal breath sounds, CTA Cardiovascular: S1, S2, +systolic murmur Abdomen/GI:Soft, Non tender, Bowel sounds present Extremities/Musculoskelatal:normal inspection, no edema Neurologic/Psych:AAOX3, grossly no focal neurological deficits Skin: normal color, warm Results & Data Vital Signs (Past 12 Hours) Vital Signs Temp Pulse Resp BP Pulse Ox 06/06/19 11:48 36.6 C 64 18 127/80 96 06/06/19 11:35 76 18 148/90 H 95 06/06/19 11:20 68 18 131/93 93 06/06/19 11:04 65 18 137/82 91 06/06/19 10:19 36.4 C L 60 18 155/78 H 96 06/06/19 07:03 36.8 C 56 L 19 146/80 H 92 06/06/19 03:40 36.7 C 64 16 168/79 H 94 Laboratory Results Short CBC 06/06/19 Range/Units 05:23 WBC 12.60 H (4.8-10.8) K/uL Hgb 13.8 (12.0-16.0) g/dL Hct 40.7 (37-47) % Plt Count 243 (130-400) K/uL BMP 06/06/19 05:23 Sodium 139 Potassium 4.2 Chloride 101 Carbon Dioxide 31 BUN 17 Creatinine 0.66 Glucose 210 H Calcium 9.0
[2019-06-06] MEDS ORDERED: PANTOprazole 40 MG TAB PO SCH (14:15)
--- NOTE | 2019-06-06 15:49 | Discharge Summary ---
Date of Service June 06, 2019 Admission HPI Per Admitting Provider CHIEF COMPLAINT: Cough and dysphagia. HISTORY OF PRESENT ILLNESS: This is a 73-year-old female with past medical history significant for type 2 diabetes, hypertension, hyperlipidemia, COPD, history of osteoarthritis, history of manic depression, suicidal ideation, history of kidney stones, history of ____ abuse, history of tobacco abuse, history of breast cancer, presents with ongoing cough and dysphagia. The patient lives alone. She says ____ who helps with cleaning up the house. She ambulates with a walker. She was here in the hospital in November with feeling of lump in her throat and discharged on antibiotics, at that time CAT scan of soft tissue of neck showed some mild sialadenitis of the right mandibular lymph nodes. The patient says at the time during the admission, she had suicidal ideation, seen by psychiatry and she was refusing psych medications and she has history of diabetes and hypertension, but refusing taking medication, but she says now she is taking a pill for diabetes, but she does not want to take any blood pressure medication, even though they explained risk of stroke or heart attack. The patient says since last 2 days, she is having dry cough and she is also having dysphagia for solids, so she came to the ER. In the ER, she was treated with dexamethasone nebs but her oxygen saturation ____ 88% on room air, so we called for admission, and she was given a dose of doxycycline p.o. for bronchitis. Has some dizziness, but denies any headache, no blurred vision, no runny nose, no sore throat, no chest pain. She does not feel any short of breath, no nausea, no vomiting, no abdominal pain. Normal bowel and bladder movements. No blood in the stool or black stools, no hematuria, no burning micturition, no swelling in the legs, no rash. Currently resting comfortably and hemodynamically stable. Admission Exam Per Admitting Provider PHYSICAL EXAMINATION: GENERAL: The patient is of moderate build, not in acute distress. VITAL SIGNS: Temperature 36.9, pulse 86, respiratory rate 20, blood pressure 117/70, oxygen 96% room air. HEENT: No pallor, no icterus. Pupils equal, round, and reactive to light. NECK: No JVD, no neck masses, no carotid bruits. CARDIOVASCULAR: S1, S2 heard, regular rate and rhythm, no murmur, no gallop. RESPIRATORY SYSTEM: Normal AP diameter. No accessory muscle use. No wheezing, no crackles. ABDOMEN: Soft, bowel sounds present. Nontender. No distention. CENTRAL NERVOUS SYSTEM: Cranial nerves II-XII grossly intact. Nonfocal. EXTREMITIES: No edema. Principal Diagnosis Discharge Information Discharge Diagnosis Acute bronchitis Dysphagia Gastritis Discharge Goals Decrease discomfort,Improve function,Improve disease control Discharge Activity Limitations Resume your previous activity Discharge Data Allergies Allergy/AdvReac Type Severity Reaction Status Date / Time amoxicillin Allergy Unknown childhood Verified 06/06/19 10:25 allergy Penicillins Allergy Unknown HAPPENED Verified 06/06/19 10:25 A CHILD Consultations 06/04/19 18:15 ED Decision to Admit Stat 06/04/19 20:23 Consult Case Management - Discharge Planning Routine 06/05/19 08:00 Consult Gastroenterology Routine Procedures Performed Operation Date: 06/06/19 09:00 Actual Procedures p EGD Biopsy Cytology(Left) - Ang Posey Neck CT: Decrease in size in the prominent left jugulodigastric lymph node seen on the prior study. No cervical lymphadenopathy. The airway remains patent. No soft tissue swelling, abscess, or mass identified within the neck. CXR: No acute process. EGD: Impression: - Z-line irregular. Biopsied. - Gastritis. Biopsied. - Normal examined duodenum. Recommendation: - Await pathology results. - Return patient to [facility] for ongoing care. - Use Prilosec (omeprazole) 40 mg PO daily daily. - Given presence of cough and hypoxia, would work up pulmonary complaints as well as consider video swallow if swallowing difficulties persist after PPI. Ordered Studies 06/04/19 20:37 CT soft tissue neck w con Urgent Hospital Course (1) Bronchitis: Patient is a 73 yr female who presents with cough and dysphagia. Acute bronchitis Hypoxia CXR:No acute process. Continue levofloxacin day #3 Blood Cx:No growth to date Continue supplemental oxygen, Nebs as needed Dysphagia Neck CT: Decrease in size in the prominent left jugulodigastric lymph node seen on the prior study. No cervical lymphadenopathy. The airway remains patent. No soft tissue swelling, abscess, or mass identified within the neck. H/O Sialadenitis of right mandibular gland. S/P EGD:Z-line irregular. Biopsied. Gastritis. Biopsied. Normal examined duodenum. Started on PPI Appreciate GI Input Advance diet as tolerated Consider video swallow if dysphagia persists DM II: Poorly Controlled Hb A1C: 12.5 Hold PO meds--Januvia, glimepiride Plan to be started on metformin by PCP Continue ISS, basal Insulin Monitor BGs Patient currently not interested in insulin therapy, metformin Agrees to be increased on dose of glimepiride upon discharge Hypertension Currently not on any meds Clonidine as needed Monitor Urinary incontinence Continue Ditropan Hyperlipidemia Not on meds H/O manic depression H/O suicidal ideation in the past Not on meds Denies acute issues H/O Breast cancer S/P B/L mastectomy Follows with Hematology/Oncology H/O COPD Not on any inhalers No signs of acute exacerbation DVT Px: Lovenox SQ Code Status DNI/DNR Disposition: Expect to discharge home when stable Total Time Total Time Spent Total Time Spent (In Minutes): 41 minutes Total Time Includes: Examination of the Patient, Discharge Planning, Medication Reconciliation, Communication With Other Providers and Other Discharge Plan Discharge Items Patient Disposition: Home - Self-Care Reason For Visit: COUGH,DYSPHAGIA Discharge Diagnosis: Acute bronchitis Dysphagia Gastritis Discharge Goals: Decrease discomfort, Improve disease control and Improve function Activity: Resume your previous activity Exercise/Sports: Gradually increase as tolerated Non-emergency contact: Primary Care Provider and Charging Plug Placer Call non-emergency contact if: you have any medication questions, your symptoms worsen, your pain is not controlled, your pain is worsening, your pain is unusual for you, your pain is concerning for you and you have a fever Follow-up/Referrals: Yuri Fregoso MD [Primary Care Provider] - Diet: Carb Consistent or DM2 and Heart Healthy Addtl Provider Instructions: Follow-up with your primary care physician Dr. Fregoso on June 13, 2019 at 10:45 AM Follow-up with your logistics loss prevention manager Dr.Brandon Posey in 4 to 6 weeks as advised Complete antibiotic course as prescribed Start taking Protonix 40 mg daily for gastritis as advised by your logistics loss prevention manager Your glimepiride is increased to 4 mg daily Consider being started on Insulin therapy for better control of your diabetes Discuss with your primary care physician for further management of your diabetes Seek immediate medical attention if your symptoms reoccur or worsen Prescriptions: New pantoprazole 40 mg Tablet,Delayed Release (Dr/Ec) 40 mg PO QAM 30 Days Qty: 30 RF: 1 levofloxacin 500 mg Tablet 500 mg PO DAILY@1100 4 Days Qty: 4 RF: 0 Continued methenamine hippurate 1 gram tablet 1 g PO HS RF: 0 oxycodone-acetaminophen 5-325 mg Tablet 1 tab PO Q8H PRN (Reason: Pain) RF: 0 Januvia 100 mg 100 mg PO DAILY RF: 0 oxybutynin chloride 15 mg tablet extended release 24hr 15 mg PO DAILY RF: 0 Changed glimepiride 2 mg 4 mg PO DAILY Qty: 0 RF: 0 Stand-Alone Forms: [facility] Discharge Orders: Discharge Order (Routine); Ordered 06/06/19 Ordered By: Yevgeniy Celis Admission Data Admit Date/Time: 06/04/19 19:08 Attending Provider: Yevgeniy Celis Admit Provider: Napoleon Fair Primary Care Provider: Yuri Fregoso Other Providers: Napoleon Fair ; Sheldon Bowie ; Queta Ellison ; Francesca Burt ; Ang Posey ; Cipriano Orantes ; Sebastián Cosme ; Jessica Jacob ; Jose Kaufman ; Akil Dunne ; Jazmin Vega ; Debra Pierre ; Shawanda Langford ; Isidra Sanchez ; Kwan Beltran Service: Telemetry Other Interventions: Discharge Summary Assessment (RN) Last Done: 06/06/19 16:03 DC Date/Time DO NOT enter until pt leaves facility: 06/06/19 17:20
[2019-06-06] MEDS ORDERED: INSULIN ASPART 100 UNITS/ML 3 ML PEN SC SCH (16:30)
[2019-06-07] MEDS ORDERED: ENOXAPARIN INJ 40 MG/0.4 ML SYR SQ SCH (09:00)
== END 2019-06-06 17:20 | disposition home or self-care (01) | DRG 192 ==
LOC: ED 13:13 → 2S 19:08

== ENCOUNTER 2019-11-17 12:49 | Inpatient (IN) ==
[2019-11-17] MEDS ORDERED: SODIUM CHLORIDE 0.9% 1000ML 1,000 ML IV SCH (13:15)
[2019-11-17 13:21] LABS: Appearance Urine Clear (Clear); Bilirubin Urine Negative (Negative); Blood Urine Negative (Negative); Color Urine Yellow; Glucose Urine UA 1+ (Negative); Ketones Urine Negative (Negative); Leukocyte Esterase Urine Negative (Negative); Nitrite Urine Negative (Negative); Protein Urine Negative (Negative); Specific Gravity Urine 1.015 (1.000-1.030); Urobilinogen Urine Negative (Negative)
--- NOTE | 2019-11-17 13:30 | XRay Report ---
XR chest 1V portable CLINICAL HISTORY: weakness COMPARISON STUDY: Chest CT January 16, 2019. Chest radiograph June 04, 2019. FINDINGS: Lung volumes are normal. There is no pneumothorax or pleural effusion. There is no consolid ation. Cardiomediastinal silhouette is stable. There is no evidence for pulmonary edema. IMPRESSION: No acute cardiopulmonary findings. ACT 112: Negative or not required by law. Electronically signed by: Jose Daniel Ennis M.D. 11/17/2019 1:29 PM
--- NOTE | 2019-11-17 13:38 | CT Scan Report ---
CT head/brain wo con CLINICAL HISTORY: 74 years-old Female with AMS. Acutely altered mental status TECHNIQUE: Multiple axial CT images of the head were obtained without contrast. A dose lowering tech nique was utilized adhering to the principles of ALARA. CT DOSE: 537.48 mGy.cm COMPARISON: Head CT 04/05/2019, brain MRI 04/21/2019 FINDINGS: No acute intracranial hemorrhage, midline shift, intracranial mass, hydrocephalus, territorial ischem ia or abnormal extra-axial collection. Remote left cerebellar infarct. Cerebral vascular calcificatio ns are noted. The calvarium is intact. Moderate left mastoid effusion. The right mastoid air cells are clear. Para nasal sinuses are also generally clear. Soft tissues are unremarkable. Prior bilateral lens replaceme nt. IMPRESSION: No acute intracranial abnormality. ACT 112: Negative or not required by law. The above report was generated using voice recognition software. It may contain grammatical, syntax o r spelling errors. Electronically signed by: Anthony Redmond M.D. 11/17/2019 1:37 PM
[2019-11-17 14:07] LABS: iSTAT Arterial Blood Gas HCO3 30 meg/L (19-24); iSTAT Arterial Blood Gas pCO2 76 mmHg (35-46); iSTAT Arterial Blood Gas pH 7.21 (7.35-7.45); iSTAT Arterial Blood Gas pO2 168 mmHg (80-95); iSTAT Carbon Dioxide 32 mmol/L (24-31); iSTAT Hematocrit 45 % (37-47); iSTAT Hemoglobin 15.3 g/dl (12.0-16.0); iSTAT Potassium 5.1 mmol/L (3.3-5.0); iSTAT Sodium 138 mmol/L (135-144)
--- NOTE | 2019-11-17 14:49 | History & Physical Report ---
Date of Service November 17, 2019 Assessment & Plan (1) Unresponsive: (2) Respiratory failure with hypercapnia: (3) Chronic low back pain: (4) Spinal stenosis of lumbar region: (5) Incontinence: (6) Major depression: (7) Uncontrolled diabetes mellitus: Patient is a DNR, Supportive care for now, BIPAP, treat symptoms, No Abx at this time. Sister on her way, likely to w/d care. 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 Police did a well check and she was unresponsive. She has 2 kids that of drug ODs and today is the anniversary of one of those deaths. Sister is not sure if this was intentional or not. She has not responded to Narcan. She was in the ER this week c pain and was DCd with no pain meds. She is a DNR. Primary Care Provider: NO PCP Allergies Allergy/AdvReac Type Severity Reaction Status Date / Time amoxicillin Allergy Unknown childhood Verified 11/17/19 13:58 allergy Penicillins Allergy Unknown HAPPENED Verified 11/17/19 13:58 A CHILD Home Medications Home Medications Medication Instructions Recorded Confirmed Type methenamine hippurate 1 gram tablet 1 g PO HS #90 tab 09/25/19 11/17/19 Rx glimepiride 2 mg PO QAM 10/02/19 11/17/19 History oxybutynin chloride 15 mg PO QDL 10/02/19 11/17/19 History gabapentin 300 mg capsule 300 mg PO TID cap 11/01/19 11/17/19 History baclofen 10 mg PO BID PRN 11/16/19 11/17/19 History Past Med/Surg History Medical History Cataract Diabetes (Chronic) History of electroconvulsive therapy Hypertension (Chronic) Incontinence Low back pain (Acute) Lymphadenopathy of right cervical region (Acute) Major depression (Chronic) No pertinent family history Sialadenitis (Acute) Sialadenitis (Inactive) Sialoadenitis (Acute) Spinal stenosis of lumbar region (Chronic) Uncontrolled diabetes mellitus (Chronic) Surgical History History of bilateral mastectomy (Resolved 04/03/13) Hx of cholecystectomy Hx of tonsillectomy Previous section Status post right knee replacement Family History Daughter No problems noted. Son No problems noted. 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 Feels Safe at Home: Yes Smoking Status: Unknown if ever smoked Hx Alcohol Use: No Hx Substance Use: No Physical Exam Physical Exam: ROS-Offers no history Physical Exam Gen-NAD, Unresponsive, on BIPAP Head-NCAT, Anicteric Sclera, No Posterior Pharyngeal Erythema Neck-Supple, No JVD, No Thyromegaly, No Masses, No LAD, No Bruits Lungs-Clear to Auscultation Bilaterally, No Rales, No Rhonchi, No Wheezing, No Crepitus Chest- Pulse 41, No S4, +S1, +S2, No S3, No Murmurs, No Rubs, No Gallops, No Ectopy Abdomen-Soft, Bowel Sounds Present, obese Non Tender, Non Distended, No Hepatomegaly, No Splenomegaly, No Palpable Masses, No Rebound, No Rigidity, No Guarding Musculoskeletal-Full Range of Motion Bilaterally, No CVAT Extremities-No Cyanosis, No Clubbing, No Edema Nuero-Unresponsivel Psych-Coma Results & Data Vital Signs (Past 12 Hours) Vital Signs Pulse Resp BP Pulse Ox 11/17/19 14:31 46 L 11 L 86/62 L 98 11/17/19 14:30 45 L 6 L 99 11/17/19 14:20 46 L 17 99 11/17/19 13:46 47 L 15 128/65 80 L 11/17/19 13:45 46 L 13 97 11/17/19 13:37 53 L 19 159/74 H 100 11/17/19 13:36 67 25 H 11/17/19 13:17 46 L 17 100 11/17/19 13:16 43 L 8 L 91/53 L 100 11/17/19 13:15 45 L 10 L 100 11/17/19 13:08 44 L 13 113/57 L 100 11/17/19 13:01 100 11/17/19 13:00 44 L 16 100 11/17/19 12:56 44 L 15 106/54 L 11/17/19 12:55 42 L 11 L 100 11/17/19 12:51 42 L 5 L 106/54 L 99
[2019-11-17 14:51] LABS: Basophils # (auto) 0.01 K/uL (0-0.2); Basophils % (auto) 0.1 %; Hematocrit (blood only) 44.9 % (37-47); Hemoglobin 14.4 g/dL (12.0-16.0); Immature Granulocytes # (auto) 0.03 K/uL (0.00-0.02); Immature Granulocytes % (auto) 0.3 %; Lymphocytes % (auto) 11.1 %; Mean Corpuscular Hemoglobin 29.8 pg (25-34); Mean Corpuscular Hgb Conc 32.1 g/dL (32-36); Mean Platelet Volume 11.6 fL (7.4-10.4); Monocytes % (auto) 2.8 %; Neutrophils # (auto) 9.25 K/uL (1.4-6.5); Neutrophils % (auto) 85.7 %; Platelet Count 190 K/uL (130-400); RDW Coefficient of Variation 13.7 % (11.5-14.5); RDW Standard Deviation 46.6 fL (36.4-46.3); Red Blood Count 4.83 M/uL (4.2-5.4); White Blood Count 10.79 K/uL (4.8-10.8)
[2019-11-17 15:21] LABS: Alanine Aminotransferase 17 U/L (12-78); Aspartate Aminotransferase 13 U/L (15-37); BUN Creatinine Ratio 17.2 (10-20); Blood Urea Nitrogen 25 mg/dl (7-18); Carbon Dioxide 30 mmol/L (21-32); Chloride 101 mmol/L (98-107); Creatinine Clr Calc Pharmacy 37.9 ml/min; Est GFR (African American) 40.8; Est GFR (Non-African American) 35.2; Glucose 327 mg/dl (70-99); Potassium 5.7 mmol/L (3.5-5.1); Sodium 137 mmol/L (136-145)
[2019-11-17 15:22] LABS: Albumin Globulin Ratio 0.7 (0.9-2); Alkaline Phosphatase 81 U/L (45-117); Bilirubin,Total 0.4 mg/dl (0.2-1); Globulin 4.1 gm/dl (2.5-4.0); Thyroid Stimulating Hormone 0.544 uIu/ml (0.300-4.500); Total Protein 7.1 gm/dl (6.4-8.2); Troponin I < 0.015 ng/ml (0-0.045)
[2019-11-17] MEDS ORDERED: SODIUM CHLORIDE 0.9% 500 ML IV ONE (15:30)
--- NOTE | 2019-11-17 15:34 | Emergency Department Note ---
Entered by Joe Tomas acting as a scribe for History of Present Illness General Chief complaint: Unresponsive Time Seen by Provider: 11/17/19 13:11 Source: EMS Mode of arrival: EMS Limitations: altered mental status History of Present Illness Onset (ago): hour(s) ([employer]) Location: head Pain Consistency: + constant Quality: + constant Treatments prior to arrival: other (narcan) The patient is a 74 year old female who presents to the Emergency Room with complaints of a constant altered mental status starting [employer]. EMS states the patient came in to the ED last night with low back pain. 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 EMS notes there was a wellness visit when they found the patient unresponsive. EMS states the patient was sitting in her chair when she had a wellness check. EMS states the patient had a pulse ox of 38% and pulse of 56 when they saw the patient. EMS notes the patient received 4.0 narcan [employer]. HPI is limited secondary to altered mental status. Home Medications Home Medications Medication Instructions Recorded Confirmed Type methenamine hippurate 1 gram tablet 1 g PO HS #90 tab 09/25/19 11/17/19 Rx glimepiride 2 mg PO QAM 10/02/19 11/17/19 History oxybutynin chloride 15 mg PO QDL 10/02/19 11/17/19 History gabapentin 300 mg capsule 300 mg PO TID cap 11/01/19 11/17/19 History baclofen 10 mg PO BID PRN 11/16/19 11/17/19 History Allergies Allergy/AdvReac Type Severity Reaction Status Date / Time amoxicillin Allergy Unknown childhood Verified 11/17/19 13:58 allergy Penicillins Allergy Unknown HAPPENED Verified 11/17/19 13:58 A CHILD Past Med/Surg History Medical History Cataract Diabetes (Chronic) History of electroconvulsive therapy Hypertension (Chronic) Incontinence Low back pain (Acute) Lymphadenopathy of right cervical region (Acute) Major depression (Chronic) No pertinent family history Sialadenitis (Acute) Sialadenitis (Inactive) Sialoadenitis (Acute) Spinal stenosis of lumbar region (Chronic) Uncontrolled diabetes mellitus (Chronic) Surgical History History of bilateral mastectomy (Resolved 04/03/13) Hx of cholecystectomy Hx of tonsillectomy Previous section Status post right knee replacement Family History Daughter No problems noted. Son No problems noted. 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[facility], [facility] and [employer] [facility] with [facility] Feels Safe at Home: Yes Smoking Status: Unknown if ever smoked Hx Alcohol Use: No Review of Systems Unobtainable due to cognitive status Physical Exam Vital Signs Vital Signs - 24 hr 11/17/19 12:51 11/17/19 12:55 11/17/19 12:56 Pulse Rate 42 L 42 L 44 L Pulse Rate from SpO2 Sensor 43 L 45 L Respiratory Rate 5 L 11 L 15 Respiratory Effort / Characteristics Respiratory Depth Shallow Blood Pressure 106/54 L 106/54 L Blood Pressure Mean 71 69 Pulse Oximetry 99 100 Oxygen Delivery Method BiPAP Fraction of Inspired Oxygen Sepsis Recent Fever Within 48 Hours No Sepsis Action Taken by Nursing No Action Required 11/17/19 13:00 11/17/19 13:01 11/17/19 13:08 Pulse Rate 44 L 44 L Pulse Rate from SpO2 Sensor 43 L 44 L Respiratory Rate 16 13 Respiratory Effort / Characteristics Spontaneous Respiratory Depth Shallow Blood Pressure 113/57 L Blood Pressure Mean 73 Pulse Oximetry 100 100 100 Oxygen Delivery Method BiPAP Fraction of Inspired Oxygen 80 Sepsis Recent Fever Within 48 Hours Sepsis Action Taken by Nursing 11/17/19 13:15 11/17/19 13:16 11/17/19 13:17 Pulse Rate 45 L 43 L 46 L Pulse Rate from SpO2 Sensor 46 L 44 L 46 L Respiratory Rate 10 L 8 L 17 Respiratory Effort / Characteristics Respiratory Depth Blood Pressure 91/53 L Blood Pressure Mean 63 Pulse Oximetry 100 100 100 Oxygen Delivery Method Fraction of Inspired Oxygen Sepsis Recent Fever Within 48 Hours Sepsis Action Taken by Nursing 11/17/19 13:36 11/17/19 13:37 11/17/19 13:45 Pulse Rate 67 53 L 46 L Pulse Rate from SpO2 Sensor 51 L 47 L Respiratory Rate 25 H 19 13 Respiratory Effort / Characteristics Respiratory Depth Blood Pressure 159/74 H Blood Pressure Mean 96 Pulse Oximetry 100 97 Oxygen Delivery Method Fraction of Inspired Oxygen Sepsis Recent Fever Within 48 Hours Sepsis Action Taken by Nursing 11/17/19 13:46 11/17/19 14:20 11/17/19 14:30 Pulse Rate 47 L 46 L 45 L Pulse Rate from SpO2 Sensor 47 L 47 L 46 L Respiratory Rate 15 17 6 L Respiratory Effort / Characteristics Spontaneous Respiratory Depth Shallow Blood Pressure 128/65 Blood Pressure Mean 78 Pulse Oximetry 80 L 99 99 Oxygen Delivery Method Fraction of Inspired Oxygen 30 Sepsis Recent Fever Within 48 Hours Sepsis Action Taken by Nursing 11/17/19 14:31 Pulse Rate 46 L Pulse Rate from SpO2 Sensor 46 L Respiratory Rate 11 L Respiratory Effort / Characteristics Respiratory Depth Blood Pressure 86/62 L Blood Pressure Mean 80 Pulse Oximetry 98 Oxygen Delivery Method Fraction of Inspired Oxygen Sepsis Recent Fever Within 48 Hours Sepsis Action Taken by Nursing Vital signs reviewed. General: Unresponsive elderly and obese female. BVM. HEENT: No scleral icterus, PERRLA, neck supple. Atraumatic. Cardiovascular: Regular rate and rhythm, no extra sounds. Pulmonary: Clear to auscultation bilaterally, normal work of breathing. Shallow respirations. Abdomen: Soft, nontender, nondistended, positive bowel sounds. Musculoskeletal: Atraumatic, no peripheral edema. Post-surgical change to bilateral anterior chest. I/O in the left tibia Neurologic: Unresponsive to verbal and painful stimuli. Skin: Warm, dry, no rash Course Course 1251: The patient was evaluated in room B1, and a complete history and physical examination were performed. 1402: I spoke to the patient's sister, Romero Sharma. She states the patient had two sons that have . She states one of the patient's son on this date. The sister was crying and would not comment on whether the patient overdosed or not. I asked the sister about the patient's DNR status and the sister states the patient was adamant she is DNR. 1435: I discussed the patient's case with Dr. Ilya Caraballo [facility]. She will evaluate the patient for further management. 1528: I spoke with the patient's sister and updated her regarding the patient's status. Administered Medications Albuterol (Duoneb) 3 ml NEB Q4R BALDO Stop: 12/17/19 17:59 Last Admin: 11/18/19 18:56 Dose: 3 ml Documented by: [id number] Admin: 11/18/19 15:08 Dose: 3 ml Documented by: [id number] Admin: 11/18/19 11:01 Dose: 3 ml Documented by: [id number] Admin: 11/18/19 07:07 Dose: 3 ml Documented by: [id number] Admin: 11/18/19 03:11 Dose: 3 ml Documented by: [id number] Admin: 11/17/19 23:10 Dose: 3 ml Documented by: [id number] Admin: 11/17/19 18:38 Dose: Not Given Documented by: [id number] Admin: 11/17/19 18:30 Dose: 3 ml Documented by: [id number] Heparin Sodium (Porcine) (Heparin Sodium (Porcine)) 5,000 units SQ Q8 BALDO Stop: 12/17/19 21:59 Last Admin: 11/18/19 20:47 Dose: 5,000 units Documented by: [id number] Cosigned by: [id number] Admin: 11/18/19 15:37 Dose: 5,000 units Documented by: [id number] Cosigned by: [id number] Admin: 11/18/19 05:45 Dose: 5,000 units Documented by: [id number] Cosigned by: [id number] Admin: 11/17/19 21:25 Dose: 5,000 units Documented by: [id number] Cosigned by: [id number] Potassium Chloride/Sodium Chloride (Normal Saline W/20 Meq Kcl) 20 meq in 1,000 mls @ 100 mls/hr IV .Q10H BALDO Stop: 12/17/19 17:29 Last Admin: 11/18/19 22:24 Dose: 100 mls/hr Documented by: [id number] Infusion: 11/18/19 22:24 Dose: 100 mls/hr Documented by: [id number] Admin: 11/18/19 12:53 Dose: 100 mls/hr Documented by: [id number] Infusion: 11/18/19 12:53 Dose: 100 mls/hr Documented by: [id number] Admin: 11/18/19 04:20 Dose: 100 mls/hr Documented by: [id number] Infusion: 11/18/19 04:20 Dose: 100 mls/hr Documented by: [id number] Admin: 11/17/19 18:27 Dose: 100 mls/hr Documented by: [id number] Famotidine 20 mg/ Syringe 5 mls @ 2.5 mls/min IV BID BALDO Stop: 12/18/19 21:14 Last Admin: 11/18/19 21:56 Dose: 2.5 mls/min Documented by: [id number] Insulin Aspart (Novolog Flexpen) 0 units SC Q6 BALDO Stop: 12/17/19 18:09 Last Admin: 11/18/19 17:06 Dose: 1 units Documented by: [id number] Cosigned by: [id number] Admin: 11/18/19 11:42 Dose: Not Given Documented by: [id number] Cosigned by: [id number] Admin: 11/18/19 05:45 Dose: 2 units Documented by: [id number] Cosigned by: [id number] Admin: 11/18/19 00:12 Dose: 5 units Documented by: [id number] Cosigned by: [id number] Admin: 11/17/19 18:50 Dose: 6 units Documented by: [id number] Cosigned by: [id number] Insulin Glargine (Lantus Solostar Pen) 0 units SC BID BALDO; Protocol Stop: 12/18/19 08:59 Last Admin: 11/18/19 20:46 Dose: 12 units Documented by: [id number] Cosigned by: [id number] Admin: 11/18/19 08:09 Dose: 16 units Documented by: [id number] Cosigned by: [id number] Discontinued Medications Sodium Chloride (Nss 1000ml) 1,000 mls @ 999 mls/hr IV .Q1H1M BALDO Stop: 11/17/19 14:15 Last Infusion: 11/17/19 15:09 Dose: 0 mls/hr Documented by: [id number] Admin: 11/17/19 13:55 Dose: 999 mls/hr Documented by: [id number] Sodium Chloride (Nss) 500 mls @ 999 mls/hr IV .Q31M ONE Stop: 11/17/19 16:00 Last Infusion: 11/17/19 18:38 Dose: 0 mls/hr Documented by: [id number] Admin: 11/17/19 17:00 Dose: 999 mls/hr Documented by: [id number] Insulin Glargine (Lantus Solostar Pen) 16 units SC NOW STA Stop: 11/17/19 21:10 Last Admin: 11/17/19 21:26 Dose: 16 units Documented by: [id number] Cosigned by: [id number] Critical Care Time Critical Care Time: Yes Total Critical Care Time: 32 I have personally spent 32 minutes of critical care time in the direct management of this patient. This includes bedside care, interpretation of diagnostic studies, and testing, discussion with consultants, patient, and family members, and other required patient management activities. This 32 minutes is in excess of all separately billable procedures. Medical Decision Making Differential Diagnosis Differential diagnoses includes but is not limited to toxic, metabolic, infectious, traumatic, cardiac, neurologic, hematologic, psychiatric and inflammatory etiologies. Medical Records Attestation: I reviewed the patient's medical records. Home Medications Current Medication List: was personally reviewed by me Laboratory Data Attestation: I reviewed the patient's lab results. Result diagrams: 11/18/19 06:24 11/18/19 06:24 Lab Results 11/17/19 11/17/19 11/17/19 Range/Units 13:06 13:15 13:15 WBC (4.8-10.8) K/uL RBC (4.2-5.4) M/uL Hgb (12.0-16.0) g/dL POC Hgb (12.0-16.0) g/dl Hct (37-47) % POC Hct (37-47) % MCV (80-100) fL MCH (25-34) pg MCHC (32-36) g/dL RDW Std Deviation (36.4-46.3) fL RDW Coeff of Mariaelena (11.5-14.5) % Plt Count (130-400) K/uL MPV (7.4-10.4) fL Immature Gran % (Auto) % Neut % (Auto) % Lymph % (Auto) % [place] % (Auto) % Eos % (Auto) % Baso % (Auto) % Immature Gran # (Auto) (0.00-0.02) K/uL Neut # (Auto) (1.4-6.5) K/uL Lymph # (Auto) (1.2-3.4) K/uL [place] # (Auto) (0.11-0.59) K/uL Eos # (Auto) (0-0.5) K/uL Baso # (Auto) (0-0.2) K/uL POC pH (7.35-7.45) POC pCO2 (35-46) mmHg POC pO2 (80-95) mmHg POC HCO3 (19-24) esme/L POC Total CO2 (24-31) mmol/L POC Base Excess (-9-1.8) esme/L POC Sodium (135-144) mmol/L Sodium (136-145) mmol/L POC Potassium (3.3-5.0) mmol/L Potassium (3.5-5.1) mmol/L Chloride (98-107) mmol/L Carbon Dioxide (21-32) mmol/L Anion Gap (3-11) BUN (7-18) mg/dl Creatinine (0.6-1.2) mg/dl Est Cr Clr Drug Dosing ml/min Est GFR ( Amer) Est GFR (Non-Af Amer) BUN/Creatinine Ratio (10-20) Glucose (70-99) mg/dl POC Glucose 348 H* (70-99) mg/dl Calcium (8.5-10.1) mg/dl Magnesium (1.8-2.4) mg/dl Total Bilirubin (0.2-1) mg/dl AST (15-37) U/L ALT (12-78) U/L Alkaline Phosphatase (45-117) U/L Troponin I (0-0.045) ng/ml Total Protein (6.4-8.2) gm/dl Albumin (3.4-5.0) gm/dl Globulin (2.5-4.0) gm/dl Albumin/Globulin Ratio (0.9-2) Beta-Hydroxybutyric Acd (0.2-2.81) mg/dl TSH (0.300-4.500) uIu/ml Urine Color Yellow Urine Appearance Clear (Clear) Urine pH 5.0 (4.5-7.5) Ur Specific [place] 1.015 (1.000-1.030) Urine Protein Negative (Negative) Urine Glucose (UA) 1+ H (Negative) Urine Ketones Negative (Negative) Urine Blood Negative (Negative) Urine Nitrite Negative (Negative) Urine Bilirubin Negative (Negative) Urine Urobilinogen Negative (Negative) Ur Leukocyte Esterase Negative (Negative) Urine Opiates Screen Neg (Neg) Ur Methadone, Qual Neg (Neg) Urine Barbiturates Neg (Neg) Ur Phencyclidine (PCP) Neg (Neg) U Amphetamin/Meth Scrn Neg (Neg) MDMA (Ecstasy) Screen Neg (Neg) U Benzodiazepines Scrn Neg (Neg) Ur Cocaine Metabolite Neg (Neg) U Marijuana (THC) Screen Neg (Neg) 11/17/19 11/17/19 11/17/19 Range/Units 13:49 13:57 13:57 WBC 10.79 (4.8-10.8) K/uL RBC 4.83 (4.2-5.4) M/uL Hgb 14.4 (12.0-16.0) g/dL POC Hgb 15.3 (12.0-16.0) g/dl Hct 44.9 (37-47) % POC Hct 45 (37-47) % MCV 93.0 (80-100) fL MCH 29.8 (25-34) pg MCHC 32.1 (32-36) g/dL RDW Std Deviation 46.6 H (36.4-46.3) fL RDW Coeff of Mariaelena 13.7 (11.5-14.5) % Plt Count 190 (130-400) K/uL MPV 11.6 H (7.4-10.4) fL Immature Gran % (Auto) 0.3 % Neut % (Auto) 85.7 % Lymph % (Auto) 11.1 % [place] % (Auto) 2.8 % Eos % (Auto) 0.0 % Baso % (Auto) 0.1 % Immature Gran # (Auto) 0.03 H (0.00-0.02) K/uL Neut # (Auto) 9.25 H (1.4-6.5) K/uL Lymph # (Auto) 1.20 (1.2-3.4) K/uL [place] # (Auto) 0.30 (0.11-0.59) K/uL Eos # (Auto) 0.00 (0-0.5) K/uL Baso # (Auto) 0.01 (0-0.2) K/uL POC pH 7.21 L (7.35-7.45) POC pCO2 76 H (35-46) mmHg POC pO2 168 H (80-95) mmHg POC HCO3 30 H (19-24) esme/L POC Total CO2 32 H (24-31) mmol/L POC Base Excess 2.0 H (-9-1.8) esme/L POC Sodium 138 (135-144) mmol/L Sodium 137 (136-145) mmol/L POC Potassium 5.1 H (3.3-5.0) mmol/L Potassium 5.7 H (3.5-5.1) mmol/L Chloride 101 (98-107) mmol/L Carbon Dioxide 30 (21-32) mmol/L Anion Gap 6.0 (3-11) BUN 25 H (7-18) mg/dl Creatinine 1.44 H (0.6-1.2) mg/dl Est Cr Clr Drug Dosing 37.9 ml/min Est GFR ( Amer) 40.8 Est GFR (Non-Af Amer) 35.2 BUN/Creatinine Ratio 17.2 (10-20) Glucose 327 H* (70-99) mg/dl POC Glucose (70-99) mg/dl Calcium 9.0 (8.5-10.1) mg/dl Magnesium 2.0 (1.8-2.4) mg/dl Total Bilirubin 0.4 (0.2-1) mg/dl AST 13 L (15-37) U/L ALT 17 (12-78) U/L Alkaline Phosphatase 81 (45-117) U/L Troponin I < 0.015 (0-0.045) ng/ml Total Protein 7.1 (6.4-8.2) gm/dl Albumin 3.0 L (3.4-5.0) gm/dl Globulin 4.1 H (2.5-4.0) gm/dl Albumin/Globulin Ratio 0.7 L (0.9-2) Beta-Hydroxybutyric Acd 2.63 (0.2-2.81) mg/dl TSH 0.544 (0.300-4.500) uIu/ml Urine Color Urine Appearance (Clear) Urine pH (4.5-7.5) Ur Specific [place] (1.000-1.030) Urine Protein (Negative) Urine Glucose (UA) (Negative) Urine Ketones (Negative) Urine Blood (Negative) Urine Nitrite (Negative) Urine Bilirubin (Negative) Urine Urobilinogen (Negative) Ur Leukocyte Esterase (Negative) Urine Opiates Screen (Neg) Ur Methadone, Qual (Neg) Urine Barbiturates (Neg) Ur Phencyclidine (PCP) (Neg) U Amphetamin/Meth Scrn (Neg) MDMA (Ecstasy) Screen (Neg) U Benzodiazepines Scrn (Neg) Ur Cocaine Metabolite (Neg) U Marijuana (THC) Screen (Neg) Imaging Data Radiologist's Impression: Radiology results as stated below per my review and the radiologist's interpretation: CT head/brain wo con CLINICAL HISTORY: 74 years-old Female with AMS. Acutely altered mental status TECHNIQUE: Multiple axial CT images of the head were obtained without contrast. A dose lowering technique was utilized adhering to the principles of ALARA. CT DOSE: 537.48 mGy.cm COMPARISON: Head CT 04/05/2019, brain MRI 04/21/2019 FINDINGS: No acute intracranial hemorrhage, midline shift, intracranial mass, hydrocephalus, territorial ischemia or abnormal extra-axial collection. Remote left cerebellar infarct. Cerebral vascular calcifications are noted. The calvarium is intact. Moderate left mastoid effusion. The right mastoid air cells are clear. Paranasal sinuses are also generally clear. Soft tissues are unremarkable. Prior bilateral lens replacement. IMPRESSION: No acute intracranial abnormality. ACT 112: Negative or not required by law. The above report was generated using voice recognition software. It may contain grammatical, syntax or spelling errors. Electronically signed by: Anthony Redmond M.D. 11/17/2019 1:37 PM XR chest 1V portable CLINICAL HISTORY: weakness COMPARISON STUDY: Chest CT January 16, 2019. Chest radiograph June 04, 2019. FINDINGS: Lung volumes are normal. There is no pneumothorax or pleural effusion. There is no consolidation. Cardiomediastinal silhouette is stable. There is no evidence for pulmonary edema. IMPRESSION: No acute cardiopulmonary findings. ACT 112: Negative or not required by law. Electronically signed by: Jose Daniel Ennis M.D. 11/17/2019 1:29 PM ECG Data Attestation: I personally reviewed and interpreted this ECG as follows: Indication: + altered mental status Rate (beats per minute): 47 Rhythm: + sinus bradycardia ECG Intervals/blocks: + Prolonged QT (at 497) ECG ST segments: + T-wave inversions (inferior and anterior) ECG Findings: no PACs and no PVCs Additional Comments: An order for cardiac monitoring was placed and the patient is found to be in a sinus bradycardia 42 bpm. Blood Pressure Blood Pressure Findings: Low blood pressure Blood Pressure Disposition: further management by hospitalist MDM Narrative This patient was evaluated and appeared to be in no significant distress. Patient is essentially unresponsive. She does have a DNR order from home, it is unclear to me how EMS found it. Intraosseous access was obtained and the patient was hydrated with normal saline solution. She did receive multiple rounds of Narcan with minimal to no effect. Given the patient's DNR, and Ambu bag was used during EMS transport. She was placed on BiPAP and her oxygen saturations were maintained however she was not pulling significant enough tidal volumes or respiratory rate. Head CT was performed and reveals no evidence of acute intracranial abnormality. Laboratory work reveals significant CO2 r etention. ABG is as above. I did contact the patient's sister and power of immigration attorney. She feels strongly that the patient does not want to be resuscitated. She adds that the patient had 2 sons, 1 of which on this date several years ago. She would not comment on whether or not the patient had suicidal ideations. Patient was reevaluated on multiple occasions and has remained fairly stable but continues to be unresponsive. She will be evaluated by the hospitalist service for admission and further management. Impression & Plan Acute drug overdose, AMS (altered mental status), DNR (do not resuscitate) Discharge Plan Visit Data *Final* Discharge Date/Time: 11/17/19 16:22 Chief Complaint: Unresponsive ED Provider: Blessing Alvarado Discharge Problem: Acute drug overdose, AMS (altered mental status), DNR (do not resuscitate) Patient Disposition: Admitted As Inpatient Discharge Instructions Interventions: ED Discharge Assessment Last Done: 11/17/19 16:22 Discharge Problem: Acute drug overdose Qualifiers: Encounter type: initial encounter Injury intent: accidental or unintentional Qualified Code(s): T50.901A - Poisoning by unspecified drugs, medicaments and biological substances, accidental (unintentional), initial encounter AMS (altered mental status) Qualifiers: Altered mental status type: coma Coma depth: [place] coma 3-8 Coma timing: in the field (EMT or ambulance) Qualified Code(s): R40.2431 - [place] coma scale score 3-8, in the field [EMT or ambulance] The scribe's documentation has been prepared under my direction and personally reviewed by me in its entirety. I confirm that the note above accurately reflects all work, treatment, procedures, and medical decision making performed by me.
[2019-11-17 15:36] LABS: Beta-Hydroxybutyrate 2.63 mg/dl (0.2-2.81)
[2019-11-17] MEDS ORDERED: GLUCAGON FOR INJ 1 MG VIAL SQ PRN (17:08)
[2019-11-17] MEDS ORDERED: GLUCOSE 10 TABS/TUBE PO PRN (17:08)
[2019-11-17] MEDS ORDERED: GLUCOSE 40% GEL 15 GM TUBE PO PRN (17:08)
[2019-11-17] MEDS ORDERED: MoRPHine SULFATE 4 MG/ML 1 ML CARP\\VIAL IV PRN (17:08)
[2019-11-17] MEDS ORDERED: DEXTROSE 50% 50 ML SYRINGE IV PRN (17:08)
[2019-11-17] MEDS ORDERED: ONDANSETRON INJ 2 MG/ML 2 ML VIAL IV PRN (17:08)
[2019-11-17] MEDS ORDERED: CARBOHYDRATES FOR HYPOGLYCEMIA PO PRN (17:08)
[2019-11-17] MEDS ORDERED: PHARMACY GLYCEMIC MGMT CONSULT PRN (17:33)
[2019-11-17] MEDS: NSS + 20MEQ KCL 20 MEQ/1,000 ML BAG IV SCH (18:27)
[2019-11-17] MEDS: ALBUT/IPRATROP 3MG/0.5MG NEB 3 ML VIAL NEB SCH ×3 (18:30→23:10)
[2019-11-17] MEDS: INSULIN ASPART 100 UNITS/ML 3 ML PEN SC SCH (18:50)
[2019-11-17 19:51] LABS: Amphetamines+Metham, Urine Neg (Neg); Barbiturates, Urine Neg (Neg); Benzodiazepine, Urine Neg (Neg); Cocaine, Urine Neg (Neg); MDMA (Ecstacy), Urine Neg (Neg); Methadone, Urine Neg (Neg); Opiate, Urine Neg (Neg); Phencyclidine, Urine Neg (Neg)
[2019-11-17] MEDS ORDERED: INSULIN GLARGINE SOLOSTAR 100 UNITS/ML 3 ML PEN SC STA (21:09)
[2019-11-17] MEDS: HEPARIN SOD 5,000 UNIT/0.5 ML VIAL SQ SCH (21:25)
[2019-11-17 21:46] LABS: Base Excess ABG -1.2 mEq/L (-9-1.8); HCO3 ABG 28 mmol/L (19-24); Oxygen Saturation ABG 95.3 % (90-95); PCO2 ABG 68 mmHg (35-46); PO2 ABG 87 mmHg (80-95); pH ABG 7.23 (7.35-7.45)
[2019-11-17 21:47] LABS: Allen Test Pos (Pos)
[2019-11-18] MEDS: INSULIN ASPART 100 UNITS/ML 3 ML PEN SC SCH ×4 (00:12→17:06)
[2019-11-18] MEDS: ALBUT/IPRATROP 3MG/0.5MG NEB 3 ML VIAL NEB SCH ×6 (03:11→23:43)
[2019-11-18] MEDS: NSS + 20MEQ KCL 20 MEQ/1,000 ML BAG IV SCH ×3 (04:20→22:24)
[2019-11-18] MEDS: HEPARIN SOD 5,000 UNIT/0.5 ML VIAL SQ SCH ×3 (05:45→20:47)
[2019-11-18 06:42] LABS: Hematocrit (blood only) 41.5 % (37-47); Hemoglobin 13.1 g/dL (12.0-16.0); Immature Granulocytes # (auto) 0.03 K/uL (0.00-0.02); Immature Granulocytes % (auto) 0.2 %; Lymphocytes # (auto) 1.86 K/uL (1.2-3.4); Lymphocytes % (auto) 14.8 %; Mean Corpuscular Hemoglobin 29.6 pg (25-34); Mean Corpuscular Hgb Conc 31.6 g/dL (32-36); Mean Corpuscular Volume 93.9 fL (80-100); Mean Platelet Volume 11.7 fL (7.4-10.4); Monocytes # (auto) 1.36 K/uL (0.11-0.59); Monocytes % (auto) 10.8 %; Neutrophils # (auto) 9.35 K/uL (1.4-6.5); Neutrophils % (auto) 74.2 %; Platelet Count 187 K/uL (130-400); RDW Standard Deviation 47.6 fL (36.4-46.3); Red Blood Count 4.42 M/uL (4.2-5.4)
[2019-11-18 07:23] LABS: Albumin Globulin Ratio 0.8 (0.9-2); Albumin Level 2.7 gm/dl (3.4-5.0); BUN Creatinine Ratio 27.9 (10-20); Bilirubin,Total 0.2 mg/dl (0.2-1); Calcium 8.5 mg/dl (8.5-10.1); Creatinine Clr Calc Pharmacy 55.6 ml/min; Est GFR (African American) 61.2; Est GFR (Non-African American) 52.8; Globulin 3.4 gm/dl (2.5-4.0); Total Protein 6.1 gm/dl (6.4-8.2)
[2019-11-18] MEDS: INSULIN GLARGINE SOLOSTAR 100 UNITS/ML 3 ML PEN SC SCH ×2 (08:09→20:46)
--- NOTE | 2019-11-18 09:53 | CT Scan Report ---
CT head/brain wo con CLINICAL HISTORY: unresponsive, suspect anoxic brain injury COMPARISON STUDY: 11/17/2019 TECHNIQUE: Axial CT of the brain is performed from the vertex to the skull base. IV contrast was not administered for this examination. A dose lowering technique was utilized adhering to the principles of ALARA. CT DOSE: 1359.50 mGycm FINDINGS: No intra or extra-axial mass lesions are visualized. There is no CT evidence of acute cortical infarc tion. There is no evidence of midline shift. There is no acute hemorrhage. No calvarial fractures ar e visualized. 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 There is no evidence of pathologic ventricular dilatation. There is no evidence of acute sinusitis IMPRESSION: No acute intracranial findings ACT 112: Negative or not required by law. Electronically signed by: Deandre Phillip M.D. 11/18/2019 9:52 AM
--- NOTE | 2019-11-18 10:24 | Pharmacy Report ---
Glycemic Control Consultation - Date of Service November 18, 2019 - Scope Scope: Glycemic Pharmacist consulted by Dr Caraballo on 11/17/19 for glycemic control and to write orders per [facility] inpatient glycemic control protocol - Objective Weight: 90.1 kg Accuchecks BSG (last 24hrs): 11/17/19 11/17/19 11/17/19 13:06 13:57 16:46 Glucose 327 H* POC Glucose 348 H* 275 H 11/17/19 11/18/19 11/18/19 21:01 00:10 05:42 Glucose POC Glucose 238 H 259 H 178 H 11/18/19 11/18/19 06:24 07:28 Glucose 139 H POC Glucose 115 H Laboratory Data (last 24hrs): 11/17/19 11/18/19 13:57 06:24 Potassium 5.7 H 5.0 Carbon Dioxide 30 30 Anion Gap 6.0 3.0 Creatinine 1.44 H 1.03 Est Cr Clr Drug Dosing 37.9 55.6 Beta-Hydroxybutyric Acd 2.63 - Recent Pertinent Medications Outpatient Anti-diabetic Regimen: * Glimepiride 2mg SQ QAM * A1c = 12.5 % 06/05/19, ordered updated A1c Risk Factors for Insulin Resistance: * Diet: NPO - Assessment & Plan Assessment & Plan: ASSESSMENT: * 74 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 Police did a well check and she was unresponsive. She has 2 kids that of drug ODs and today is the anniversary of one of those deaths. Sister is not sure if this was intentional or not. She has not responded to Narcan. She was in the ER this week c/o pain and was DCd with no pain meds. She is a DNR. * Type 2 diabetic managed on glimepiride at home, latest A1c 12.5%, new one ordered. * Will begin with weight based basal bolus insulin therapy and titrate to goal. PLAN FOR INPATIENT GLYCEMIC CONTROL: * Holding outpatient oral diabetes medications * Basal insulin * Lantus 16 units SQ BID * Bolus insulin * NovoLog per scale ACHS or Q6hrs while NPO * Goal Range: Low 110 mg/dL - High 140 mg/dL * Correction Factor: 30 mg/dL/unit * Nutritional / Prandial insulin per carb ratio of 1 unit per 10 grams CHO consumed * Please note that the plan above was derived based on current level of insulin resistance and hospital stress. These recommendations are appropriate for inpatient admission only. Plan of care upon discharge will need to be reassessed to avoid potential outpatient hypo/hyperglycemia. Thank you.
--- NOTE | 2019-11-18 11:57 | Neurology Consultation ---
Date of Consultation November 18, 2019 Assessment & Plan (1) Encephalopathy: A 74-year-old woman admitted to the hospital comatose and acute respiratory failure on BiPAP ventilation. Per report she has a history of drug- seeking behavior and history of low back pain. Urine drug screen was negative. Hypertensive this afternoon. Unclear etiology etiology of the patient's coma. Anoxic brain injury is certainly on the differential diagnosis and may be supported by the intermittent myoclonic jerks. Patient currently DNR. I did review her CT noncontrast. My impression is there is no evidence of an acute ischemic stroke or evidence of anoxic injury although there is some mild motion artifact. I would recommend MRI brain without contrast for further evaluation as well as a an EEG. I will message the science technician unit control clerk and see if he is able to perform the studies today or tomorrow. If patient is unable to get MRI brain without contrast would recommend repeat CT head noncontrast. (2) Coma: (3) Respiratory failure with hypercapnia: History of Present Illness Reason for Consultation: Encephalopathy Attending Physician: Aryan Dunbar MD History of Present Illness A 74 year old woman admitted with encephalopathy. Patient presented to the ED for low back pain then the following day she did not show for work. A well check was performed and patient found my EMS in an altered mental state. She did not respond to narcan. UDS was Negative. CT head showed no acute hemorrhage or large territory ischemic stroke. Neurology consulted for encephalopathy. This afternoon patient was seen and examined. No family or collateral at bedside. Patient hypothermic and wearing a bear hugger. Has been hypertensive which is new. She has been on BiPAP since admission. He was made DNR Allergies Allergy/AdvReac Type Severity Reaction Status Date / Time amoxicillin Allergy Unknown childhood Verified 11/17/19 13:58 allergy Penicillins Allergy Unknown HAPPENED Verified 11/17/19 13:58 A CHILD Home Medications Home Medications Medication Instructions Recorded Confirmed Type methenamine hippurate 1 gram tablet 1 g PO HS #90 tab 09/25/19 11/17/19 Rx glimepiride 2 mg PO QAM 10/02/19 11/17/19 History oxybutynin chloride 15 mg PO QDL 10/02/19 11/17/19 History gabapentin 300 mg capsule 300 mg PO TID cap 11/01/19 11/17/19 History baclofen 10 mg PO BID PRN 11/16/19 11/17/19 History Patient History Medical History Cataract Diabetes (Chronic) History of electroconvulsive therapy Hypertension (Chronic) Incontinence Low back pain (Acute) Lymphadenopathy of right cervical region (Acute) Major depression (Chronic) No pertinent family history Sialadenitis (Acute) Sialadenitis (Inactive) Sialoadenitis (Acute) Spinal stenosis of lumbar region (Chronic) Uncontrolled diabetes mellitus (Chronic) Surgical History History of bilateral mastectomy (Resolved 04/03/13) Hx of cholecystectomy Hx of tonsillectomy Previous section Status post right knee replacement Family History Daughter No problems noted. Son No problems noted. 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 Patient nonresponsive to sternal rub. Has a oral pharyngeal airway and BiPAP mask on. Has mild forced eye closure. Nonverbal. Tongue is midline. No gaze deviation. Pupils are equal and reactive. no hippus noted. Tone appears decreased in the right upper and right lower extremity compared to the left. Has some movement of the left foot with noxious stimuli. Toes are equivocal. Julieta sign is negative bilateral. No response to noxious stimuli in the right upper extremity right lower extremity. Patient is mute. Not following commands. Does not open eyes to voice. Appears acutely ill. She is obese. Durations appear regular. Remittent myoclonic jerks noted. Pulses regular. No bruises or rashes noted. No lower extremity edema. Results & Data Vital Signs (Past 12 Hours) Vital Signs Temp Pulse Pulse Pulse Resp BP Pulse Ox 11/18/19 11:03 64 18 100 11/18/19 11:02 64 18 100 11/18/19 10:00 54 L 20 93 11/18/19 09:59 35.2 C L 11/18/19 09:58 34.8 C L 11/18/19 08:17 50 L 128/84 100 11/18/19 08:00 36.0 C L 42 L 43 L 43 L 16 114/63 99 11/18/19 07:12 42 L 16 100 11/18/19 07:10 42 L 17 100 11/18/19 03:50 36.5 C 44 L 16 131/70 99 11/18/19 03:12 42 L 42 L 16 89 L 11/18/19 02:43 36.5 C 11/18/19 00:[address] head non conrast: No acute intracranial findings
--- NOTE | 2019-11-18 13:48 | Hospitalist Progress Note ---
Date of Service November 18, 2019 Assessment & Plan (1) Altered mental status: Head CT x 2 - no evidence of acute ischemic stroke, hemorrhage, edema. Suspect drug overdose - accidental vs intentional. Tox screen negative. No response to naloxone. Prescribed meds with potential overdose potential that would not be detected by tox screen. O2 sats reportedly 38% when EMS arrived. May have hypoxic encephalopathy. (2) Acute respiratory failure with hypoxia and hypercarbia: O2 sats reportedly 38% when EMS arrived. ABG showed hypercapnia. BiPAP utilized for ventilatory support. Will transition to O2 via nasal cannula. (3) Diabetes mellitus type 2, controlled: Blood sugars > 300 in ED. Pharmacy consulted for glycemic management. (4) Major depression: History of severe depression with suicide attempts in the past. Consult Psychiatry if condition improves. (5) Palliative care encounter: Met with 2 sisters and son-in-law. Sister Georgia is durable power of patent prosecution attorney. Family given update on patient's condition and studies performed thus far. Suspect hypoxic encephalopathy, most likely secondary to medication overdose. 2 CT scans of head have been performed and demonstrated only chronic changes. It was explained to the family that patient may or may not have hypoxic encephalopathy and that early CT scans may not show any findings such as cerebral edema. It was also explained that routine urine tox screen detects some common medications like narcotics and benzodiazepines, but would not detect medications like gabapentin or baclofen. At this point in time, it is impossible to determine prognosis with certainty. It was explained that usually in circumstances like this, supportive care is offered for a period of time to see if there is any improvement of neurologic status. Family indicated that patient's CODE STATUS is DO NOT RESUSCITATE; they feel strongly that she should not be intubated if her condition worsens. Copies of patient's advanced directives and POLST were obtained from clinic EMR, reviewed, and placed on chart. Advanced directives from 10/30/2010 indicate that sister Georgia is designated as DURABLE POWER OF DATA EXAMINATION CLERK. The directives instruct that no extraordinary measures including cardiopulmonary resuscitation, mechanical ventilation, or tube feedings be undertaken in the se tting of severe brain damage or an end-stage medical condition. POLST dated 02/08/2015 states that cardiopulmonary resuscitation not be attempted, comfort measures only, no antibiotics, no artificial nutrition. Advanced directives discussed at length in the context of the current situation where (1) it appears that the patient's condition may be secondary to medication overdose (accidental or intentional) and (2) it is too early to determine neurologic prognosis. Family feels that is likely that the patient was suicidal and that the overdose was intentional. She has a history of serious depression, previous suicide attempts, , chronic pain, loss of 2 sons, birthday of 1 son yesterday and birthday of the other next week. Question was raised by the undersigned whether or not we should honor the patient's advanced directives in the setting of a possible suicide attempt. Case was discussed with Hospital Safety Sealer production quality manager who in turn consulted with Hospital Quality Assurance Lab Technician. The consensus was that the patient's advanced directives should be honored. Therefore, resuscitation status remains DO NOT RESUSCITATE and patient is not to be intubated/mechanically ventilated if her respiratory status worsens. Current plan is conservative supportive measures over the next 24 to 48 hours to see if there is any improvement in her neurologic status. Will continue oxygen for comfort. BiPAP probably carries more risk than benefits and may be uncomfortable; it was discontinued. Consider repeat neuroimaging and / or EEG in about 48 hour if those studies would be helpful with prognostication and decision making at that time. (6) DVT prophylaxis: SQ heparin. (7) Discharge planning issues: Critically ill with concerning prognosis. Admission and Anticipated Discharge Date Admission Date: November 17, 2019 Subjective Recheck for multiple problems. Patient seen in their room around 1000. Family (2 sisters and [id number]) visiting. Admitted yesterday after being found unresponsive at home. Remains unresponsive. Hemodynamically stable. On BiPAP for ventilatory support. Review of Systems: Unable to obtain due to pt's condition. Physical Exam Constitutional: + lethargic Eyes: PERRL, conjunctivae normal, anicteric sclerae ENMT: BiPAP Neck: trachea midline, no thyromegaly Respiratory: normal respiratory effort, lungs clear to auscultation Auscultation: + rhonchi Cardiovascular: Rate/Rhythm: regular rate Heart Sounds: + murmur (I/ systolic murmur LSB and apex); no gallop and no cardiac rub Vessels: no JVD Extremities: normal capillary refill; no calf tenderness and no edema Gastrointestinal (Abdomen): Inspection/Auscultation: abdomen not distended and + abnormal bowel sounds (quiet) Percussion/Palpation: abdomen soft; abdomen nontender Musculoskeletal: Head/Neck/Chest: neck supple Extremities: no cyanosis and no clubbing Skin: no rashes, warm and dry Neurologic: pupils 3 mm, reactive to light opens eyes to noxious stimuli does not follow commands moves upper and lower extremities with noxious stimuli - ? posturing plantar reflexes neutral Genitourinary: Garcia cath Lymphatic: no cervical lymphadenopathy Results & Data ([facility]) Vital Signs (Past 12 Hours) Vital Signs Temp Pulse Pulse Pulse Resp BP Pulse Ox 11/18/19 13:27 36.6 C 110 H 16 152/78 H 95 11/18/19 12:00 36.6 C 64 82 18 142/80 H 99 11/18/19 11:03 64 18 100 11/18/19 11:02 64 18 100 11/18/19 10:00 54 L 20 93 11/18/19 09:59 35.2 C L 11/18/19 09:58 34.8 C L 11/18/19 08:17 50 L 128/84 100 11/18/19 08:00 36.0 C L 42 L 43 L 43 L 16 114/63 99 11/18/19 07:12 42 L 16 100 11/18/19 07:10 42 L 17 100 11/18/19 03:50 36.5 C 44 L 16 131/70 99 11/18/19 03:12 42 L 42 L 16 89 L 11/18/19 02:43 36.5 C Laboratory Results Laboratory Results - last 24 hr 11/17/19 11/17/19 11/17/19 13:15 13:49 13:57 WBC RBC Hgb POC Hgb 15.3 Hct POC Hct 45 MCV MCH MCHC RDW Std Deviation RDW Coeff of Mariaelena Plt Count MPV Immature Gran % (Auto) Neut % (Auto) Lymph % (Auto) Canyon % (Auto) Eos % (Auto) Baso % (Auto) Immature Gran # (Auto) Neut # (Auto) Lymph # (Auto) Canyon # (Auto) Eos # (Auto) Baso # (Auto) POC pH 7.21 L POC pCO2 76 H POC pO2 168 H POC HCO3 30 H POC Total CO2 32 H POC Base Excess 2.0 H ABG pH ABG pCO2 ABG pO2 ABG HCO3 ABG O2 Saturation ABG Base Excess Thony Test Barometric Pressure Oxygen Given POC Sodium 138 Sodium 137 POC Potassium 5.1 H Potassium 5.7 H Chloride 101 Carbon Dioxide 30 Anion Gap 6.0 BUN 25 H Creatinine 1.44 H Est Cr Clr Drug Dosing 37.9 Est GFR ( Amer) 40.8 Est GFR (Non-Af Amer) 35.2 BUN/Creatinine Ratio 17.2 Glucose 327 H* POC Glucose Calcium 9.0 Magnesium 2.0 Total Bilirubin 0.4 AST 13 L ALT 17 Alkaline Phosphatase 81 Troponin I < 0.015 Total Protein 7.1 Albumin 3.0 L Globulin 4.1 H Albumin/Globulin Ratio 0.7 L Beta-Hydroxybutyric Acd 2.63 TSH 0.544 Specimen Hemolysis Urine Opiates Screen Neg Ur Methadone, Qual Neg Urine Barbiturates Neg Ur Phencyclidine (PCP) Neg U Amphetamin/Meth Scrn Neg MDMA (Ecstasy) Screen Neg U Benzodiazepines Scrn Neg Ur Cocaine Metabolite Neg U Marijuana (THC) Screen Neg 11/17/19 11/17/19 11/17/19 13:57 16:46 21:01 WBC 10.79 RBC 4.83 Hgb 14.4 POC Hgb Hct 44.9 POC Hct MCV 93.0 MCH 29.8 MCHC 32.1 RDW Std Deviation 46.6 H RDW Coeff of Mariaelena 13.7 Plt Count 190 MPV 11.6 H Immature Gran % (Auto) 0.3 Neut % (Auto) 85.7 Lymph % (Auto) 11.1 Canyon % (Auto) 2.8 Eos % (Auto) 0.0 Baso % (Auto) 0.1 Immature Gran # (Auto) 0.03 H Neut # (Auto) 9.25 H Lymph # (Auto) 1.20 Canyon # (Auto) 0.30 Eos # (Auto) 0.00 Baso # (Auto) 0.01 POC pH POC pCO2 POC pO2 POC HCO3 POC Total CO2 POC Base Excess ABG pH ABG pCO2 ABG pO2 ABG HCO3 ABG O2 Saturation ABG Base Excess Thony Test Barometric Pressure Oxygen Given POC Sodium Sodium POC Potassium Potassium Chloride Carbon Dioxide Anion Gap BUN Creatinine Est Cr Clr Drug Dosing Est GFR ( Amer) Est GFR (Non-Af Amer) BUN/Creatinine Ratio Glucose POC Glucose 275 H 238 H Calcium Magnesium Total Bilirubin AST ALT Alkaline Phosphatase Troponin I Total Protein Albumin Globulin Albumin/Globulin Ratio Beta-Hydroxybutyric Acd TSH Specimen Hemolysis Urine Opiates Screen Ur Methadone, Qual Urine Barbiturates Ur Phencyclidine (PCP) U Amphetamin/Meth Scrn MDMA (Ecstasy) Screen U Benzodiazepines Scrn Ur Cocaine Metabolite U Marijuana (THC) Screen 11/17/19 11/18/19 11/18/19 21:29 00:10 05:42 WBC RBC Hgb POC Hgb Hct POC Hct MCV MCH MCHC RDW Std Deviation RDW Coeff of Mariaelena Plt Count MPV Immature Gran % (Auto) Neut % (Auto) Lymph % (Auto) Canyon % (Auto) Eos % (Auto) Baso % (Auto) Immature Gran # (Auto) Neut # (Auto) Lymph # (Auto) Canyon # (Auto) Eos # (Auto) Baso # (Auto) POC pH POC pCO2 POC pO2 POC HCO3 POC Total CO2 POC Base Excess ABG pH 7.23 L ABG pCO2 68 H ABG pO2 87 ABG HCO3 28 H ABG O2 Saturation 95.3 H ABG Base Excess -1.2 Thony Test Pos Barometric Pressure 744.7 Oxygen Given 30% POC Sodium Sodium POC Potassium Potassium Chloride Carbon Dioxide Anion Gap BUN Creatinine Est Cr Clr Drug Dosing Est GFR ( Amer) Est GFR (Non-Af Amer) BUN/Creatinine Ratio Glucose POC Glucose 259 H 178 H Calcium Magnesium Total Bilirubin AST ALT Alkaline Phosphatase Troponin I Total Protein Albumin Globulin Albumin/Globulin Ratio Beta-Hydroxybutyric Acd TSH Specimen Hemolysis Urine Opiates Screen Ur Methadone, Qual Urine Barbiturates Ur Phencyclidine (PCP) U Amphetamin/Meth Scrn MDMA (Ecstasy) Screen U Benzodiazepines Scrn Ur Cocaine Metabolite U Marijuana (THC) Screen 11/18/19 11/18/19 11/18/19 06:24 06:24 07:28 WBC 12.60 H RBC 4.42 Hgb 13.1 POC Hgb Hct 41.5 POC Hct MCV 93.9 MCH 29.6 MCHC 31.6 L RDW Std Deviation 47.6 H RDW Coeff of Mariaelena 14.0 Plt Count 187 MPV 11.7 H Immature Gran % (Auto) 0.2 Neut % (Auto) 74.2 Lymph % (Auto) 14.8 Canyon % (Auto) 10.8 Eos % (Auto) 0.0 Baso % (Auto) 0.0 Immature Gran # (Auto) 0.03 H Neut # (Auto) 9.35 H Lymph # (Auto) 1.86 Canyon # (Auto) 1.36 H Eos # (Auto) 0.00 Baso # (Auto) 0.00 POC pH POC pCO2 POC pO2 POC HCO3 POC Total CO2 POC Base Excess ABG pH ABG pCO2 ABG pO2 ABG HCO3 ABG O2 Saturation ABG Base Excess Thony Test Barometric Pressure Oxygen Given POC Sodium Sodium 143 POC Potassium Potassium 5.0 Chloride 110 H Carbon Dioxide 30 Anion Gap 3.0 BUN 29 H Creatinine 1.03 Est Cr Clr Drug Dosing 55.6 Est GFR ( Amer) 61.2 Est GFR (Non-Af Amer) 52.8 BUN/Creatinine Ratio 27.9 H Glucose 139 H POC Glucose 115 H Calcium 8.5 Magnesium Total Bilirubin 0.2 AST 24 ALT 20 Alkaline Phosphatase 65 Troponin I Total Protein 6.1 L Albumin 2.7 L Globulin 3.4 Albumin/Globulin Ratio 0.8 L Beta-Hydroxybutyric Acd TSH Specimen Hemolysis Urine Opiates Screen Ur Methadone, Qual Urine Barbiturates Ur Phencyclidine (PCP) U Amphetamin/Meth Scrn MDMA (Ecstasy) Screen U Benzodiazepines Scrn Ur Cocaine Metabolite U Marijuana (THC) Screen 11/18/19 11:31 WBC RBC Hgb POC Hgb Hct POC Hct MCV MCH MCHC RDW Std Deviation RDW Coeff of Mariaelena Plt Count MPV Immature Gran % (Auto) Neut % (Auto) Lymph % (Auto) Canyon % (Auto) Eos % (Auto) Baso % (Auto) Immature Gran # (Auto) Neut # (Auto) Lymph # (Auto) Canyon # (Auto) Eos # (Auto) Baso # (Auto) POC pH POC pCO2 POC pO2 POC HCO3 POC Total CO2 POC Base Excess ABG pH ABG pCO2 ABG pO2 ABG HCO3 ABG O2 Saturation ABG Base Excess Thony Test Barometric Pressure Oxygen Given POC Sodium Sodium POC Potassium Potassium Chloride Carbon Dioxide Anion Gap BUN Creatinine Est Cr Clr Drug Dosing Est GFR ( Amer) Est GFR (Non-Af Amer) BUN/Creatinine Ratio Glucose POC Glucose 116 H Calcium Magnesium Total Bilirubin AST ALT Alkaline Phosphatase Troponin I Total Protein Albumin Globulin Albumin/Globulin Ratio Beta-Hydroxybutyric Acd TSH Specimen Hemolysis Urine Opiates Screen Ur Methadone, Qual Urine Barbiturates Ur Phencyclidine (PCP) U Amphetamin/Meth Scrn MDMA (Ecstasy) Screen U Benzodiazepines Scrn Ur Cocaine Metabolite U Marijuana (THC) Screen Diagnostic Findings CT HEAD 11/17/19 FINDINGS: No acute intracranial hemorrhage, midline shift, intracranial mass, hydrocephalus, territorial ischemia or abnormal extra-axial collection. Remote left cerebellar infarct. Cerebral vascular calcifications are noted. The calvarium is intact. Moderate left mastoid effusion. The right mastoid air cells are clear. Paranasal sinuses are also generally clear. Soft tissues are unremarkable. Prior bilateral lens replacement. IMPRESSION: No acute intracranial abnormality. ACT 112: Negative or not required by law. The above report was generated using voice recognition software. It may contain grammatical, syntax or spelling errors. Electronically signed by: Anthony Redmond M.D. 11/17/2019 1:[address] HEAD 11/18/19 FINDINGS: No intra or extra-axial mass lesions are visualized. There is no CT evidence of acute cortical infarction. There is no evidence of midline shift. There is no acute hemorrhage. No calvarial fractures are visualized. 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 There is no evidence of pathologic ventricular dilatation. There is no evidence of acute sinusitis IMPRESSION: No acute intracranial findings ACT 112: Negative or not required by law. Electronically signed by: Deandre Phillip M.D. 11/18/2019 9:52 AM ECG Additional Comments: EKG performed at 1048 reviewed and demonstrated NSR at 80 / min, int raventricular conduction delay, QRS 122 msec.
--- NOTE | 2019-11-18 18:07 | Electrocardiogram Report ---
Test Reason : Blood Pressure : / mmHG Vent. Rate : 047 BPM Atrial Rate : 047 BPM P-R Int : 204 ms QRS Dur : 114 ms QT Int : 562 ms P-R-T Axes : 058 003 -22 degrees QTc Int : 497 ms Sinus bradycardia with first degree AV block Non-specific intra-ventricular conduction delay Prolonged QT Cannot rule out Inferior infarct (cited on or before 04-JUN-2019) Anterior infarct (cited on or before 04-JUN-2019) Abnormal ECG When compared with ECG of 04-JUN-2019 15:42, Vent. rate has decreased BY 30 BPM Non-specific change in ST segment in Anterior leads Inverted T waves have replaced nonspecific T wave abnormality in Inferior leads T wave inversion now evident in Anterior leads Confirmed by Fady Harris ([id number]) on 11/18/2019 6:07:01 PM Referred By: REFERRED SELF Confirmed By:Fady Harris
[2019-11-18] MEDS: FAMOTIDINE 20 MG in SYRINGE 3 ML IV SCH (21:56)
[2019-11-19] MEDS: INSULIN ASPART 100 UNITS/ML 3 ML PEN SC SCH ×4 (00:16→16:53)
[2019-11-19] MEDS ORDERED: ACETAMINOPHEN 650 MG SUPP PR PRN (01:26)
[2019-11-19] MEDS: ALBUT/IPRATROP 3MG/0.5MG NEB 3 ML VIAL NEB SCH ×5 (03:04→19:32)
[2019-11-19 06:34] LABS: Calcium 8.5 mg/dl (8.5-10.1); Creatinine Clr Calc Pharmacy 66.1 ml/min; Est GFR (African American) 77.1; Est GFR (Non-African American) 66.6; Potassium 4.6 mmol/L (3.5-5.1)
[2019-11-19] MEDS: HEPARIN SOD 5,000 UNIT/0.5 ML VIAL SQ SCH ×3 (06:35→21:58)
[2019-11-19] MEDS: INSULIN GLARGINE SOLOSTAR 100 UNITS/ML 3 ML PEN SC SCH (08:01)
--- NOTE | 2019-11-19 08:11 | Hospitalist Progress Note ---
Date of Service November 19, 2019 Assessment & Plan (1) Altered mental status: Found unresponsive at home. Head CT x 2 - no evidence of acute ischemic stroke, hemorrhage, edema. Suspect drug overdose - accidental vs intentional. Tox screen negative. No response to naloxone. Prescribed meds with potential overdose potential that would not be detected by tox screen. O2 sats reportedly 38% when EMS arrived. 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 (2) Acute respiratory failure with hypoxia and hypercarbia: O2 sats reportedly 38% when EMS arrived. ABG showed hypercapnia. BiPAP utilized initially for ventilatory support. Continued BiPAP may be uncomfortable and is relatively contraindicated due to neuro status. Transitioned to O2 via nasal cannula. (3) Diabetes mellitus type 2, controlled: Blood sugars > 300 in ED. Pharmacy consulted for glycemic management. (4) Major depression: History of severe depression with suicide attempts in the past. Consult Psychiatry if condition improves. (5) Palliative care encounter: Met with 2 sisters and son-in-law 11/18. Please refer to previous documentation from 11/18. Patient has Living Will, Durable POA, POLST. Code status is DNR. Family does not want extraordinary measures, consistent with patient's advanced directives. Neuro status has changed over past 24 hours- now with more spontaneous movements, but does not follow commands. Low grade fever last night. At risk for aspiration pneumonia from suspected overdose. Did not pursue diagnostic testing or start antibiotics per POLST instructions. Current plan is conservative supportive measures over the next 24 to 48 hours to see if there is any improvement in her neurologic status. Will continue oxygen for comfort. Consider repeat neuroimaging and / or EEG if those studies would be helpful with prognostication and decision making at that time. Will discuss current status and plans with family when they visit later today. (6) DVT prophylaxis: SQ heparin. (7) Discharge planning issues: Critically ill with concerning prognosis. Admission and Anticipated Discharge Date Admission Date: November 17, 2019 Subjective Recheck for multiple problems. Patient seen in their room around 0720. Febrile last night. More movement, apparently spontaneous, but does not follow commands. Review of Systems: Unable to obtain due to pt's condition. Physical Exam Constitutional: + lethargic; no acute distress Eyes: PERRL, conjunctivae normal, anicteric sclerae Neck: trachea midline, no thyromegaly Respiratory: normal respiratory effort, lungs clear to auscultation Auscultation: + rhonchi Cardiovascular: Rate/Rhythm: regular rate and + tachycardic Heart Sounds: + murmur (I/ systolic murmur LSB and apex); no gallop and no cardiac rub Vessels: no JVD Extremities: normal capillary refill; no calf tenderness and no edema Gastrointestinal (Abdomen): Inspection/Auscultation: abdomen not distended and + abnormal bowel sounds (quiet) Percussion/Palpation: abdomen soft; abdomen nontender Musculoskeletal: Head/Neck/Chest: neck supple Extremities: no cyanosis and no clubbing Skin: no rashes, warm and dry Neurologic: pupils 2-3 mm, reactive to light opens eyes to noxious stimuli spontaneous movements of head and extremities does not follow commands plantar reflexes equivocal Genitourinary: Garcia cath Lymphatic: no cervical lymphadenopathy Results & Data ([facility]) Vital Signs (Past 12 Hours) Vital Signs Temp Pulse Resp BP Pulse Ox 11/19/19 07:13 37.4 C 111 H 20 171/83 H 92 11/19/19 07:01 104 H 20 90 11/19/19 03:55 37.6 C H 105 H 32 H 134/77 90 11/19/19 03:04 106 H 20 90 11/19/19 01:57 109 H 16 93 11/18/19 23:46 117 H 20 94 11/18/19 23:43 117 H 20 94 11/18/19 23:39 38.1 C H 117 H 20 151/83 H 94 Laboratory Results 11/18/19 06:24 11/19/19 05:41
[2019-11-19] MEDS: NSS + 20MEQ KCL 20 MEQ/1,000 ML BAG IV SCH ×2 (08:20→18:22)
[2019-11-19] MEDS: FAMOTIDINE 20 MG in SYRINGE 3 ML IV SCH ×2 (09:20→21:57)
[2019-11-19] MEDS: MoRPHine SULFATE 2 MG/ML CARP IV PRN ×3 (11:52→16:54)
[2019-11-19] MEDS ORDERED: FUROSEMIDE 40 MG/4 ML VIAL IV ONE (20:31)
[2019-11-19] MEDS ORDERED: FUROSEMIDE 40 MG in SYRINGE 0 ML IV STA (20:33)
[2019-11-19] MEDS ORDERED: ALBUT/IPRATROP 3MG/0.5MG NEB 3 ML VIAL NEB PRN (20:34)
[2019-11-19] MEDS ORDERED: INSULIN GLARGINE SOLOSTAR 100 UNITS/ML 3 ML PEN SC SCH (21:00)
[2019-11-20] MEDS: INSULIN ASPART 100 UNITS/ML 3 ML PEN SC SCH ×2 (00:14→05:56)
[2019-11-20] MEDS: NSS + 20MEQ KCL 20 MEQ/1,000 ML BAG IV SCH (04:10)
[2019-11-20] MEDS: HEPARIN SOD 5,000 UNIT/0.5 ML VIAL SQ SCH (05:56)
[2019-11-20 05:57] LABS: Estimated Average Glucose 237 mg/dl; Hemoglobin A1C 9.9 % (4.5-5.6)
[2019-11-20 06:58] LABS: BUN Creatinine Ratio 29.3 (10-20); Calcium 9.2 mg/dl (8.5-10.1); Creatinine Clr Calc Pharmacy 87.3 ml/min; Est GFR (Non-African American) 87.1; Potassium 3.5 mmol/L (3.5-5.1)
[2019-11-20 07:15] VITALS: BP 174/104; TEMP 99
--- NOTE | 2019-11-20 07:57 | Hospitalist Progress Note ---
Date of Service November 20, 2019 Assessment & Plan (1) Altered mental status: Found unresponsive at home. O2 sats reportedly 38% when EMS arrived. Head CT x 2 - no evidence of acute ischemic stroke, hemorrhage, edema. Suspect drug overdose - accidental vs intentional. Sister brought medication bottles from home- 2 bottles of baclofen were empty; 5 oxycodone/acet tabs were left in that bottle; gabapentin bottle almost full. Tox screen negative. No response to naloxone. Prescribed meds with potential overdose potential that would not be detected by tox screen. 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 (2) Acute respiratory failure with hypoxia and hypercarbia: O2 sats reportedly 38% when EMS arrived. ABG showed hypercapnia. BiPAP utilized initially for ventilatory support. Continued BiPAP may be uncomfortable and is relatively contraindicated due to neuro status. Transitioned to O2 via nasal cannula. (3) Diabetes mellitus type 2, controlled: Blood sugars > 300 in ED. Pharmacy consulted for glycemic management. Advance directive reviewed; patient indicated no insulin. Will DC Lantus and NovoLog. (4) Major depression: History of severe depression with suicide attempts in the past. Consult Psychiatry if condition improves. (5) Palliative care encounter: Met with 2 sisters and son-in-law 11/18. Please refer to previous documentation from 11/18. Patient has Living Will, Durable POA, POLST. Code status is DNR. Family does not want extraordinary measures, consistent with patient's advanced directives. Neuro status has changed over past 24 hours- now with more spontaneous movements, but does not follow commands. Low grade fever. At risk for aspiration pneumonia from suspected overdose. Did not pursue diagnostic testing or start antibiotics per POLST instructions. Met with sisters again yesterday and discussed status and concerns. Living will and POLST reviewed with them; sister Georgia / [place] given copies from [facility]. Offering conservative supportive measures for few days to see if there is any improvement in her neurologic status. Check EEG and f/u CT today. Will continue oxygen for comfort. Anticipate transition to comfort measures only if no signs of improvement today. (6) DVT prophylaxis: SQ heparin. (7) Discharge planning issues: Critically ill with concerning prognosis + advanced directives indicating no extraordinary measures. Admission and Anticipated Discharge Date Admission Date: November 17, 2019 Subjective Recheck for multiple problems. Patient seen in their room around 0715. No new concerns reported by nursing staff. Restless at times, but no purposeful movements. Received PRN morphine yesterday and appeared to be more comfortable. Review of Systems: Unable to obtain due to pt's condition. Physical Exam Constitutional: + lethargic; no acute distress Neck: trachea midline, no thyromegaly Respiratory: normal respiratory effort, lungs clear to auscultation Auscultation: + rhonchi Cardiovascular: Rate/Rhythm: regular rate and + tachycardic Heart Sounds: + murmur (I/ systolic murmur LSB and apex); no gallop and no cardiac rub Vessels: no JVD Extremities: normal capillary refill and + edema (trace pretibial edema & edema of hands); no calf tenderness Gastrointestinal (Abdomen): Inspection/Auscultation: abdomen not distended and + abnormal bowel sounds (quiet) Percussion/Palpation: abdomen soft; abdomen nontender Musculoskeletal: Head/Neck/Chest: neck supple Extremities: no cyanosis and no clubbing Skin: no rashes, warm and dry Neurologic: no purposeful movements does not follow commands Babinski- equivocally upgoing vs withdrawal withdraws legs with Babinski Genitourinary: Garcia cath Lymphatic: no cervical lymphadenopathy Results & Data ([facility]) Vital Signs (Past 12 Hours) Vital Signs Temp Pulse Pulse Resp BP BP Pulse Ox 11/20/19 07:30 94 H 11/20/19 07:14 37.2 C 100 H 30 H 174/104 H 88 L 11/20/19 07:02 97 H 22 89 L 11/20/19 05:28 87 22 92 11/20/19 04:39 91 11/20/19 03:43 36.7 C 98 H 24 183/82 H 89 L 11/20/19 02:39 92 H 26 H 91 11/19/19 23:40 95 H 20 94 11/19/19 23:32 36.7 C 95 H 26 H 178/83 H 93
[2019-11-20] MEDS: FAMOTIDINE 20 MG in SYRINGE 3 ML IV SCH (08:54)
--- NOTE | 2019-11-20 10:08 | CT Scan Report ---
CT head/brain wo con CT DOSE: 638.56 mGycm HISTORY: Mental status change hypoxic encephalopathy TECHNIQUE: Multiaxial CT images of the head were performed without the use of intravenous contrast. A dose lowering technique was utilized adhering to the principles of ALARA. Comparison: 11/18/2019 Findings: The paranasal sinuses and mastoid air cells are clear. The calvarium and skull base are int act. The ventricles and sulci are within normal limits. There is no mass, hematoma, midline shift, or acute infarct. Impression: No acute intracranial abnormality. No change from the prior exam. ACT 112: Negative or not required by law. The above report was generated using voice recognition software. It may contain grammatical, syntax or spelling errors. Electronically signed by: Amado John M.D. 11/20/2019 10:07 AM
[2019-11-20] MEDS ORDERED: LORazepam 0.5 MG/1 ML VIAL IV PRN (11:20)
[2019-11-20] MEDS ORDERED: SCOPOLAMINE 1.5 MG TDSY TD SCH (11:30)
--- NOTE | 2019-11-20 15:10 | Electroencephalogram ---
EEG Procedure Note Date of Service November 20, 2019 Start / End Times Start Time: 07:42 End Time: 08:02 Referring Physician Ronen Solis, DO History A 74 year old woman with encephalopathy secondary to suspected hypoxic brain injury. EEG performed for evaluation of epileptiform activity. Home Medication List Home Medications Medication Instructions Recorded Confirmed Type methenamine hippurate 1 gram tablet 1 g PO HS #90 tab 09/25/19 11/17/19 Rx glimepiride 2 mg PO QAM 10/02/19 11/17/19 History oxybutynin chloride 15 mg PO QDL 10/02/19 11/17/19 History gabapentin 300 mg capsule 300 mg PO TID cap 11/01/19 11/17/19 History baclofen 10 mg PO BID PRN 11/16/19 11/17/19 History Inpatient Medication List Acetaminophen (Tylenol) 650 mg FL Q4H PRN PRN Reason: Fever Stop: 12/19/19 01:25 Last Admin: 11/19/19 01:47 Dose: 650 mg Documented by: [id number] Scopolamine (Transderm-Scop) 1.5 mg TD Q72H BALDO Stop: 12/20/19 11:29 Last Admin: 11/20/19 12:08 Dose: 1.5 mg Documented by: [id number] Discontinued Medications Albuterol (Duoneb) 3 ml NEB Q4R BALDO Stop: 12/17/19 17:59 Last Admin: 11/19/19 19:32 Dose: 3 ml Documented by: [id number] Admin: 11/19/19 15:06 Dose: 3 ml Documented by: [id number] Admin: 11/19/19 11:13 Dose: 3 ml Documented by: [id number] Admin: 11/19/19 07:00 Dose: 3 ml Documented by: [id number] Admin: 11/19/19 03:04 Dose: 3 ml Documented by: [id number] Admin: 11/18/19 23:43 Dose: 3 ml Documented by: [id number] Admin: 11/18/19 18:56 Dose: 3 ml Documented by: [id number] Admin: 11/18/19 15:08 Dose: 3 ml Documented by: [id number] Admin: 11/18/19 11:01 Dose: 3 ml Documented by: [id number] Admin: 11/18/19 07:07 Dose: 3 ml Documented by: [id number] Admin: 11/18/19 03:11 Dose: 3 ml Documented by: [id number] Admin: 11/17/19 23:10 Dose: 3 ml Documented by: [id number] Admin: 11/17/19 18:38 Dose: Not Given Documented by: [id number] Admin: 11/17/19 18:30 Dose: 3 ml Documented by: [id number] Heparin Sodium (Porcine) (Heparin Sodium (Porcine)) 5,000 units SQ Q8 BALDO Stop: 12/17/19 21:59 Last Admin: 11/20/19 05:56 Dose: 5,000 units Documented by: [id number] Cosigned by: [id number] Admin: 11/19/19 21:58 Dose: 5,000 units Documented by: [id number] Cosigned by: [id number] Admin: 11/19/19 15:31 Dose: 5,000 units Documented by: [id number] Cosigned by: [id number] Admin: 11/19/19 06:35 Dose: 5,000 units Documented by: [id number] Cosigned by: [id number] Admin: 11/18/19 20:47 Dose: 5,000 units Documented by: [id number] Cosigned by: [id number] Admin: 11/18/19 15:37 Dose: 5,000 units Documented by: [id number] Cosigned by: [id number] Admin: 11/18/19 05:45 Dose: 5,000 units Documented by: [id number] Cosigned by: [id number] Admin: 11/17/19 21:25 Dose: 5,000 units Documented by: [id number] Cosigned by: [id number] Sodium Chloride (Nss 1000ml) 1,000 mls @ 999 mls/hr IV .Q1H1M BALDO Stop: 11/17/19 14:15 Last Infusion: 11/17/19 15:09 Dose: 0 mls/hr Documented by: [id number] Admin: 11/17/19 13:55 Dose: 999 mls/hr Documented by: [id number] Sodium Chloride (Nss) 500 mls @ 999 mls/hr IV .Q31M ONE Stop: 11/17/19 16:00 Last Infusion: 11/17/19 18:38 Dose: 0 mls/hr Documented by: [id number] Admin: 11/17/19 17:00 Dose: 999 mls/hr Documented by: [id number] Potassium Chloride/Sodium Chloride (Normal Saline W/20 Meq Kcl) 20 meq in 1,000 mls @ 100 mls/hr IV .Q10H BALDO Stop: 12/17/19 17:29 Last Infusion: 11/20/19 11:45 Dose: 0 mls/hr Documented by: [id number] Admin: 11/20/19 04:10 Dose: 100 mls/hr Documented by: [id number] Infusion: 11/20/19 04:10 Dose: 100 mls/hr Documented by: [id number] Admin: 11/19/19 18:22 Dose: 100 mls/hr Documented by: [id number] Infusion: 11/19/19 18:20 Dose: 100 mls/hr Documented by: [id number] Admin: 11/19/19 08:20 Dose: 100 mls/hr Documented by: [id number] Infusion: 11/19/19 08:20 Dose: 100 mls/hr Documented by: [id number] Admin: 11/18/19 22:24 Dose: 100 mls/hr Documented by: [id number] Infusion: 11/18/19 22:24 Dose: 100 mls/hr Documented by: [id number] Admin: 11/18/19 12:53 Dose: 100 mls/hr Documented by: [id number] Infusion: 11/18/19 12:53 Dose: 100 mls/hr Documented by: [id number] Admin: 11/18/19 04:20 Dose: 100 mls/hr Documented by: [id number] Infusion: 11/18/19 04:20 Dose: 100 mls/hr Documented by: [id number] Admin: 11/17/19 18:27 Dose: 100 mls/hr Documented by: [id number] Famotidine 20 mg/ Syringe 5 mls @ 2.5 mls/min IV BID BALDO Stop: 12/18/19 21:14 Last Admin: 11/20/19 08:54 Dose: 2.5 mls/min Documented by: [id number] Admin: 11/19/19 21:57 Dose: 2.5 mls/min Documented by: [id number] Admin: 11/19/19 09:20 Dose: 2.5 mls/min Documented by: [id number] Admin: 11/18/19 21:56 Dose: 2.5 mls/min Documented by: [id number] Furosemide 40 mg/ Syringe 4 mls @ 4 mls/min IV NOW STA Stop: 11/19/19 20:34 Last Admin: 11/19/19 21:24 Dose: 4 mls/min Documented by: [id number] Insulin Aspart (Novolog Flexpen) 0 units SC Q6 BALDO Stop: 12/17/19 18:09 Last Admin: 11/19/19 11:52 Dose: 1 units Documented by: [id number] Cosigned by: [id number] Admin: 11/19/19 06:35 Dose: 2 units Documented by: [id number] Cosigned by: [id number] Admin: 11/19/19 00:16 Dose: 2 units Documented by: [id number] Cosigned by: [id number] Admin: 11/18/19 17:06 Dose: 1 units Documented by: [id number] Cosigned by: [id number] Admin: 11/18/19 11:42 Dose: Not Given Documented by: [id number] Cosigned by: [id number] Admin: 11/18/19 05:45 Dose: 2 units Documented by: [id number] Cosigned by: [id number] Admin: 11/18/19 00:12 Dose: 5 units Documented by: [id number] Cosigned by: [id number] Admin: 11/17/19 18:50 Dose: 6 units Documented by: [id number] Cosigned by: [id number] Insulin Aspart (Novolog Flexpen) 0 units SC Q6 BALDO Stop: 12/19/19 17:59 Last Admin: 11/20/19 05:56 Dose: Not Given Documented by: [id number] Cosigned by: [id number] Admin: 11/20/19 00:14 Dose: Not Given Documented by: [id number] Cosigned by: [id number] Admin: 11/19/19 16:53 Dose: Not Given Documented by: [id number] Cosigned by: [id number] Insulin Glargine (Lantus Solostar Pen) 16 units SC NOW STA Stop: 11/17/19 21:10 Last Admin: 11/17/19 21:26 Dose: 16 units Documented by: [id number] Cosigned by: [id number] Insulin Glargine (Lantus Solostar Pen) 0 units SC BID BALDO; Protocol Stop: 12/18/19 08:59 Last Admin: 11/19/19 08:01 Dose: 16 units Documented by: [id number] Cosigned by: [id number] Admin: 11/18/19 20:46 Dose: 12 units Documented by: [id number] Cosigned by: [id number] Admin: 11/18/19 08:09 Dose: 16 units Documented by: [id number] Cosigned by: [id number] Insulin Glargine (Lantus Solostar Pen) 0 units SC BID BALDO; Protocol Stop: 12/19/19 20:59 Last Admin: 11/19/19 21:59 Dose: 16 units Documented by: [id number] Cosigned by: [id number] Morphine Sulfate (Morphine Sulfate) 2 mg IV Q4 PRN PRN Reason: Pain Stop: 12/03/19 11:45 Last Admin: 11/19/19 16:54 Dose: 2 mg Documented by: [id number] Admin: 11/19/19 13:55 Dose: 2 mg Documented by: [id number] Admin: 11/19/19 11:52 Dose: 2 mg Documented by: [id number] Description This is a 21 electrode EEG with a single channel dedicated to limited EKG. The electrodes were placed in accordance with the International 10-20 system. REPORT: At the onset of the EEG the patient is in an altered mental state. The posterior dominant rhythm is not seen. Instead the background is symmetric and consisted of diffuse 2 to 3 Hz polymorphic delta activity. There is intermittent, generalized sharply contoured waves with triphasic morphology seen throughout the study. No stage II sleep transients are seen. IMPRESSION: This is an abnormal routine EEG in a patient with altered mentation due to severe generalized background slowing with intermittent triphasic waves suggestive of a nonspecific moderate to severe encephalopathy. Triphasic waves are nonspecific EEG pattern found to metabolic encephalopathies including hepatic encephalopathy, renal failure, or anoxic injury.
[2019-11-20] MEDS: CHECK SCOPOLAMINE PATCH PLACEMENT SCH ×2 (17:17→23:46)
[2019-11-20] MEDS: MoRPHine SULFATE 2 MG/ML CARP IV PRN (21:08)
[2019-11-21] MEDS: FUROSEMIDE 40 MG/4 ML VIAL IV PRN (01:34)
[2019-11-21] MEDS: MoRPHine SULFATE 2 MG/ML CARP IV PRN ×3 (01:56→20:55)
--- NOTE | 2019-11-21 08:12 | Hospitalist Progress Note ---
Date of Service November 21, 2019 Assessment & Plan (1) Altered mental status: Found unresponsive at home. O2 sats reportedly 38% when EMS arrived. Tox screen negative. No response to naloxone. Prescribed meds with potential overdose potential that would not be detected by tox screen. Sister brought medication bottles from home. Baclofen 2 Rx's, dispensed 10/12/19 and 10/25/19, # 20 each, both empty Oxycodone / acetaminophen, dispensed 10/13/19, # 21, 5 tabs left Gabapentin- bottle mostly fill. Head CT x 3 - no evidence of acute ischemic stroke, hemorrhage, edema. EEG- slowing consistent with hypoxic encephalopathy. Suspect drug overdose - accidental vs intentional. Family feels that intentional overdose most likely. No significant neurologic improvement after 3 days of observation and support. Transitioned to comfort measures only per patient's advanced directives. (2) Acute respiratory failure with hypoxia and hypercarbia: O2 sats reportedly 38% when EMS arrived. ABG showed hypercapnia. BiPAP utilized initially for ventilatory support. Continued BiPAP may be uncomfortable and is relatively contraindicated due to neuro status. Transitioned to O2 via nasal cannula. Continue O2 for comfort. (3) Diabetes mellitus type 2, controlled: Blood sugars > 300 in ED. Pharmacy consulted for glycemic management. Advance directive reviewed; patient indicated no insulin. Will DC Lantus and NovoLog. (4) Major depression: History of severe depression with suicide attempts in the past. (5) Palliative care encounter: Met with 2 sisters and son-in-law 11/18; please refer to documentation on that day. Patient has Living Will, Durable POA, POLST. Documents reviewed and discussed with family. Advance directives clear that no extraordinary measures should be undertaken to prolong life. Code status is DNR. No neurologic improvement after several days of observation / support. Transitioned to comfort measures only on 11/20.. Continue O2 for comfort. IV morphine or lorazepam as needed for comfort. IV furosemide as needed for comfort. No insulin, antibiotics, IV fluids, tube feedings, BiPAP. (6) DVT prophylaxis: Initially received SQ heparin. SQ heparin discontinued when transitioned to comfort measures. (7) Discharge planning issues: Terminally ill. Not stable for transfer to another facility. Anticipated that patient will during this hospital stay. Admission and Anticipated Discharge Date Admission Date: November 17, 2019 Subjective Recheck for multiple problems. Patient seen in their room around 0740 Transitioned to comfort measures only yesterday and transferred to Med-Surg Unit. No significant changes during the night. Received 1 dose of IV morphine at 0156 for comfort with good results. Appears to be comfortable this morning. Review of Systems: Unable to obtain due to pt's condition. Physical Exam 2 Constitutional: + altered mental status and comfortable; no acute distress Eyes: PERRL, conjunctivae normal, anicteric sclerae Neck: trachea midline, no thyromegaly Respiratory: normal respiratory effort, lungs clear to auscultation Auscultation: + rhonchi Cardiovascular: Rate/Rhythm: regular rate and + tachycardic Heart Sounds: + murmur (I/ systolic murmur LSB and apex); no gallop and no cardiac rub Vessels: no JVD Extremities: + edema (trace pretibial edema & edema of hands); no calf tenderness Gastrointestinal (Abdomen): Inspection/Auscultation: abdomen not distended and + abnormal bowel sounds (quiet) Percussion/Palpation: abdomen soft; abdomen nontender Musculoskeletal: Head/Neck/Chest: neck supple Extremities: no cyanosis and no clubbing Skin: no rashes, warm and dry Neurologic: + obtunded Genitourinary: Garcia Lymphatic: no cervical lymphadenopathy Results & Data ([facility]) Vital Signs (Past 12 Hours) Vital Signs Pulse Resp Pulse Ox 11/21/19 07:09 114 H 24 89 L 11/21/19 05:15 110 H 20 90 11/21/19 01:44 156 H 32 H 92 11/20/19 23:13 105 H 22 91
[2019-11-21] MEDS: CHECK SCOPOLAMINE PATCH PLACEMENT SCH ×2 (10:03→17:14)
[2019-11-21 15:17] VITALS: PULSE 171; O2SAT 93
[2019-11-22] MEDS: CHECK SCOPOLAMINE PATCH PLACEMENT SCH (00:26)
[2019-11-22] MEDS: MoRPHine SULFATE 2 MG/ML CARP IV PRN ×2 (02:56→04:56)
[2019-11-22] MEDS: FUROSEMIDE 40 MG/4 ML VIAL IV PRN (04:56)
--- NOTE | 2019-11-22 10:01 | Death Summary ---
Date of Service November 22, 2019 Pronouncement Note Contributing Factors (1) Hypoxic encephalopathy: Additional Data Attending physician: Aryan Dunbar MD Patient ceased to breath at 0815. Pupils fixed and dilated. No spontaneous respirations or heart sounds. Family notified by staff.
--- NOTE | 2019-11-22 17:07 | Discharge Summary ---
Date of Service Date of Admission: 11/17/19 Date of : 11/22/19 Principal Diagnosis hypoxic encephalopathy OTHER ACUTE DIAGNOSES: acute respiratory failure with hypoxia and hypercapnia diabetes mellitus type 2, uncontrolled encounter for palliative care Discharge Data Allergies Allergy/AdvReac Type Severity Reaction Status Date / Time amoxicillin Allergy Unknown childhood Verified 11/17/19 13:58 allergy Penicillins Allergy Unknown HAPPENED Verified 11/17/19 13:58 A CHILD Consultations 11/17/19 14:36 ED Decision to Admit Stat 11/17/19 19:19 Consult Neurology Routine Ordered Studies 11/17/19 13:11 CT head/brain wo con Stat 11/17/19 21:04 CT head/brain wo con Routine 11/20/19 07:57 CT head/brain wo con Routine Hospital Course (1) Hypoxic encephalopathy: 74 YO female with history of diabetes mellitus type 2, chronic back pain from spinal stenosis, depression. She was found unresponsive at home. Respirations were slow and shallow when EMS arrived; O2 saturation was 38%. Received naloxone without improvement of neurologic status. Brought to ED. Placed on BiPAP for ventilatory support. Urine tox screen negative for narcotics, benzodiazepines, and other drugs. Acetaminophen level was undetectable. Head CT did not show any acute findings. Family concerned that patient may have committed suicide. However, no objective evidence of self-harm: -no suicide note -no evidence of injury -no open medication bottles when patient was found by EMS -no medications unaccounted for upon review of medication bottles -2 baclofen bottles were empty, but small amounts were dispensed ( # 20 ) and prescribed weeks ago (10/12/19 & 10/25/19) -gabapentin bottle for Rx 11/12/19 was almost full -oxycodone / acetaminophen bottle for Rx 10/13/19 # 21 had 5 tabs left -negative tox screen Further diagnostic evaluation was not pursued per patient's advance directives and instructions of Durable Power of [employer] Route Supervisor as discussed below. 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 MRI of brain was considered but not performed because of patient's unstable status. EEG demonstrated diffuse slowing consistent with severe hypoxic encephalopathy. Neurologic status did not improve; [place] Coma Scale remained < 7. Etiology of hypoxic encephalopathy was not determined. (2) Acute respiratory failure with hypoxia and hypercarbia: Presented with acute hypoxic + hypercapnic respiratory failure. O2 saturation was 38% when EMS arrived at the patient's home. Initial ABG in ED on ? 100% FIO2 showed pO2 168, pCO2 76, HCO3 30, pH 7.21. BiPAP was initially used for ventilatory support. Durable POA indicated that intubation should not be considered per patient's advance directives (see below). BiPAP was subsequently discontinued because (1) high risk for aspiration and (2) advance directives instructed no extraordinary measures. Supplemental O2 was continued for comfort. (3) Diabetes mellitus type 2, uncontrolled: DM type 2 managed with glimipiride. Blood sugar in ED was 348. Pharmacy consulted for glycemic management. Received Lantus / NovoLog per protocol. When it became apparent that advanced directives stated that insulin not be administered, family requested that it be discontinued. (4) Palliative care encounter: Advanced Directives reviewed. Patient's sister Georgia Lopez was designated as Durable Power of Milk Route Supervisor. Her Living Will was reviewed and instructed that no extraordinary measures be undertaken under the circumstances of terminal illness or permanent state of unconsciousness. Her POLST indicated no resuscitation, no ventilation, no antibiotics, no artificial support for hydration or nutrition, comfort measures only. Conservative supportive care was continued for a few days to see if there was any chance of neurologic improvement; unfortunately, there was none. Patient received palliative care and 11/22/2019 at 0815. Family did not request an autopsy. Total Time Total Time Spent Total Time Spent (In Minutes): 0 Discharge Plan Discharge Items Patient Disposition: Reason For Visit: UNRESPONSIVE Follow-up/Referrals: PCP,ANSELMO [Primary Care Provider] - Stand-Alone Forms: [facility] Admission Data Admit Date/Time: 11/17/19 14:58 Other DC Date/Time DO NOT enter until pt leaves facility: 11/22/19 11:35
[2019-11-22] MEDS ORDERED: DESTROY THIS MEDICATION ONE (18:53)
== END 2019-11-22 11:35 | disposition expired | DRG 917 ==
LOC: ED 12:49 → SUATTDRO 14:58 → 2S 14:58 → 4W 11-20 17:03